=== PATIENT | female | born 1950 | race Caucasian/White ===

== ENCOUNTER 2018-04-12 15:32 | Inpatient (IN) | payer MEDICARE, OTHER ==
[2018-04-12 16:11] VITALS: BP 140/82
[2018-04-12] MEDS ORDERED: Albuterol Nebulizer 2.5mg/3mL HHN PRN (16:38)
[2018-04-12] MEDS ORDERED: Triamcinolone Acetonide 0.1% Cream 15 gm TP PRN (16:51)
[2018-04-12] MEDS ORDERED: Maalox 30 mL Cup PO PRN (16:51)
[2018-04-12] MEDS ORDERED: Magnesium Hydroxide (MOM) 30 mL UDC PO PRN (16:51)
[2018-04-12 17:34] LABS: % BASOPHILS 0.1 % (0.0-2.0); % EOSINOPHILS 2.7 % (0.0-5.0); % MONOCYTES 6.4 % (2.0-10.0); % NEUTROPHILS 66.8 % (40.0-80.0); EOSINOPHILE ABSOLUTE 0.2 Th/cmm (0.1-0.4); HEMATOCRIT 42.8 % (41.0-60); LYMPHOCYTE ABSOLUTE 1.5 Th/cmm (1.5-3.0); MEAN CELL VOLUME 95.2 fl (81-100); MEAN CORPUSCULAR HGB CONC 32.6 pg (28.0-36.0); MEAN PLATELET VOLUME 7.6 fl; MONOCYTE ABSOLUTE 0.4 Th/cmm (0.3-1.0); NEUTROPHILE ABSOLUTE 4.2 Th/cmm (1.8-8.0); PLATELET COUNT 288 Th/cmm (150-400); RED CELL DISTRIBUTION WIDTH 13.7 % (11.5-20.0); WHITE BLOOD COUNT 6.3 Th/cmm (4.8-10.8)
[2018-04-12 17:50] LABS: ALB/GLOB RATIO 1.2 (1.0-1.8); ALBUMIN 3.6 gm/dL (3.7-5.3); ALKALINE PHOSPHATASE 102 U/L (34-104); ANION GAP 11.4 (7.0-16.0); BILIRUBIN,TOTAL 0.7 mg/dL (0.3-1.0); BUN - UREA NITROGEN 20 mg/dL (7-25); CALCIUM SERUM 9.3 mg/dL (8.6-10.3); CHLORIDE 107 mEq/L (98-107); CHOLESTEROL 138 mg/dL (<200); CREATININE - SERUM 0.9 mg/dL (0.6-1.2); GFR AFRICAN-AMERICAN > 60.0 ml/min (>90); GFR NON AFRICAN-AMERICAN > 60.0 ml/min; GLUCOSE 95 mg/dL (70-105); HDL -HIGH DENSITY LIPOPROTEIN 35 mg/dL (23-92); POTASSIUM SERUM 4.4 mEq/L (3.5-5.1); SGOT 34 U/L (13-39); SGPT/ALT 15 U/L (7-52); SODIUM SERUM 140 mEq/L (136-145); TOTAL PROTEIN,SERUM 6.6 gm/dL (6.0-8.3); TRIGLYCERIDES 120 mg/dL (<150)
--- NOTE | 2018-04-13 08:49 | History and Physical ---
History of Present Illness - HPI Chief Complaint: Increased in agitation HPI: Patient was send to ER for evaluation for increased in agitation, after evaluation patient was send to [facility]Ps[facility] unit. Vital Signs: Last Vital Signs Temp 99 F 04/12/18 17:01 Pulse 70 04/12/18 18:39 Resp 18 04/12/18 18:39 BP 160/103 04/12/18 17:01 Pulse Ox 97 04/12/18 18:39 Past Medical History Cardiovascular: Report: AFIB, CAD, CHF, HTN Pulmonary: Report: No Pertinent Hx [employer]: Report: Dementia GI: Report: No Pertinent Hx Psych: Report: Schizophrenia Musculoskeletal: Report: Weakness Rheumatologic: Report: No pertinent Hx Infectious Disease: Report: No Pertinent Hx Renal/: Report: No Pertinent Hx Endocrine: Report: No Pertinent Hx Dermatology: Report: No Pertinent Hx - Past Surgical History Past Surgical History: No pertinent Hx Social History Smoke: No Alcohol: None Drugs: None Lives: Intermediate Domestic Violence: Negative - Allergies Allergies/Adverse Reactions: Allergies Allergy/AdvReac Type Severity Reaction Status Date / Time No Known Allergies Allergy Verified 04/12/18 16:09 Review of Systems - Review of Systems Constitutional: Report: No Significant Eyes: Report: No Significant ENT: Report: No Significant Respiratory: Report: No Significant Cardiovascular: Report: No Significant Gastrointestinal: Report: No Significant Genitourinary: Report: No Significant Musculoskeletal: Report: No Significant Skin: Report: No Significant Neurological: Report: Weakness Physical Exam - Physical Exam HEENT: Report: Ears Nose Throat within normal limits Neck: Report: Within normal limits Cardiovascular Systems: Report: Irregular rhythm was noted Respiratory: Report: Breath Sounds are within normal limits Abdomen: Report: Non-tender to palpation Back: Report: Inspection of back is within normal limits. Extremities: Report: Non-tender to palpation. Skin: Report: Color of skin is within normal limits, Warm, Dry Neuro/Psych: Report: Disoriented to name time or place - Lab Results All Lab Results last 24 hours: Laboratory Results - last 24 hr 04/12/18 04/12/18 04/12/18 17:26 17:26 17:37 WBC 6.3 RBC 4.50 Hgb 14.0 Hct 42.8 MCV 95.2 MCH 31.0 MCHC Differential 32.6 RDW 13.7 Plt Count 288 MPV 7.6 Neutrophils % 66.8 Lymphocytes % 24.0 Monocytes % 6.4 Eosinophils % 2.7 Basophils % 0.1 Sodium 140 Potassium 4.4 Chloride 107 Carbon Dioxide 26.0 Anion Gap 11.4 BUN 20 Creatinine 0.9 Est GFR ( Amer) > 60.0 Est GFR (Non-Af Amer) > 60.0 BUN/Creatinine Ratio 22.2 Glucose 95 POC Glucose 66 L Calcium 9.3 Total Bilirubin 0.7 AST 34 ALT 15 Alkaline Phosphatase 102 Total Protein 6.6 Albumin 3.6 L Globulin 3.0 Albumin/Globulin Ratio 1.2 Triglycerides 120 Cholesterol 138 LDL Cholesterol Direct 90 HDL Cholesterol 35 - Assessment Assessment: Patient is sleeping but arousable. Dx: Increased in agitation, Psychosis, A-fib , HTN, CAD, CHF. - Plan Plan: Patient follow by Psychiatry, willrequest labs, will continue to monitor.
[2018-04-13] MEDS: Multivitamin Tab PO SCH (10:27)
[2018-04-13 10:28] LABS: CHOLESTEROL 143 mg/dL (<200); HDL -HIGH DENSITY LIPOPROTEIN 40 mg/dL (23-92); TRIGLYCERIDES 83 mg/dL (<150)
[2018-04-13] MEDS: Aspirin 81mg Chewable Tab PO SCH (10:28)
[2018-04-13] MEDS: POLYETHYLENE GLYCOL 3350 17 GM PACK PO SCH (10:31)
--- NOTE | 2018-04-13 11:02 | Diagnostic Imaging Report ---
Portable chest x-ray HISTORY: Pain, fall There is a poor inspiration. This is accentuation of interstitial lung markings in the right base probably related to the poor inspiration. The heart size appears increased. Cardiac pacemaker lead wire projects over the right ventricle. IMPRESSION: 1. Allowing for poor inspiration, no acute focal pulmonary processes 2. Cardiomegaly with pacemaker placement
[2018-04-13 22:20] LABS: A1C % 5.3 % (4.0-6.0)
--- NOTE | 2018-04-14 04:10 | Psychiatric Evaluation ---
DATE OF SERVICE: 04/12/2018 IDENTIFYING DATA: The patient is a 67-year-old woman, resident of a residential facility. Information obtained by directly interviewing the patient as well as reviewing the admission papers and they are reliable. JUSTIFICATION OF HOSPITALIZATION: The patient is admitted here on a voluntary basis from [facility] in view of her depression and agitated behavior. CHIEF COMPLAINT: "I do not know." HISTORY OF PRESENT ILLNESS: This is the first psychiatric hospitalization to the [facility] for this patient who is reported to have been striking out and wandering and confused. The patient has not been able to continue to a lower level of care and the patient has to be transferred over here for stabilization. The patient has been referred over here by Dr. Walter who has been treating the patient on an outpatient basis. PAST PSYCHIATRIC HISTORY: Review of the chart indicated that the patient had been maintained on low dose of the antidepressant as well as antipsychotic medication. The patient has been on 100 mg of the Seroquel and 20 mg of the Paxil prior to being in here. The patient, however, has been getting easily upset when I am talking to her and is noted to be very confused, not be able to provide much of any information. PAST PSYCHIATRIC HISTORY: None. MEDICAL HISTORY: Physical examination is requested to be done by Dr. Nixon. SUBSTANCE ABUSE HISTORY: None. PHYSICAL OR SEXUAL ABUSE HISTORY: None. LEGAL PROBLEMS: None at this time. STRENGTH AND ASSETS: The patient seems to be motivated. MENTAL STATUS EXAMINATION: The patient is a 67-year-old, looking her stated age, superficially cooperative. Eye contact is poor. Mood is noted to be irritable. Affect is constricted. Insight and judgment at this time are noted to be still impaired. Impulse control is noted to be limited. Coping skills are noted to be limited. The patient has paranoid delusions, but denies any command hallucinations. The patient is very confused, paranoid, and is depressed. The patient is getting easily agitated. The saw the patient is alert and awake, but short and long-term memory are noted to be very much impaired. DIAGNOSTIC IMPRESSION: AXIS I: Major depressive disorder, recurrent with psychotic symptoms. AXIS IB: Dementia and behavioral change, secondary trait. AXIS II: None. AXIS III: As per Dr. Nixon. IMMEDIATE TREATMENT PLAN: The patient is going to be observed on inpatient unit, provided with supportive psychotherapy. The patient is going to be encouraged and verbalize the concerns. Once stabilized, the patient is going to be discharged to self to be followed up on an outpatient basis. JOB# [id number]
[2018-04-14 06:41] LABS: % BASOPHILS 0.2 % (0.0-2.0); % EOSINOPHILS 2.2 % (0.0-5.0); % LYMPHOCYTES 22.5 % (20.0-50.0); % MONOCYTES 7.6 % (2.0-10.0); % NEUTROPHILS 67.5 % (40.0-80.0); EOSINOPHILE ABSOLUTE 0.1 Th/cmm (0.1-0.4); HEMATOCRIT 42.4 % (41.0-60); HEMOGLOBIN 14.2 gm/dL (12-16); LYMPHOCYTE ABSOLUTE 1.3 Th/cmm (1.5-3.0); MEAN CELL VOLUME 94.7 fl (81-100); MEAN CORPUSCULAR HEMOGLOBIN 31.7 pg (27.0-31.0); MEAN CORPUSCULAR HGB CONC 33.5 pg (28.0-36.0); MEAN PLATELET VOLUME 7.8 fl; MONOCYTE ABSOLUTE 0.4 Th/cmm (0.3-1.0); NEUTROPHILE ABSOLUTE 3.9 Th/cmm (1.8-8.0); PLATELET COUNT 313 Th/cmm (150-400); RED BLOOD COUNT 4.47 Mil/cmm (3.80-5.20); RED CELL DISTRIBUTION WIDTH 13.5 % (11.5-20.0); WHITE BLOOD COUNT 5.7 Th/cmm (4.8-10.8)
[2018-04-14 06:53] LABS: ALB/GLOB RATIO 1.3 (1.0-1.8); ALKALINE PHOSPHATASE 104 U/L (34-104); ANION GAP 12.6 (7.0-16.0); BILIRUBIN,TOTAL 0.9 mg/dL (0.3-1.0); BUN - UREA NITROGEN 20 mg/dL (7-25); CALCIUM SERUM 9.8 mg/dL (8.6-10.3); CARBON DIOXIDE 25.8 mEq/L (21.0-31.0); CHLORIDE 104 mEq/L (98-107); CREATININE - SERUM 0.9 mg/dL (0.6-1.2); GFR AFRICAN-AMERICAN > 60.0 ml/min (>90); GFR NON AFRICAN-AMERICAN > 60.0 ml/min; GLUCOSE 95 mg/dL (70-105); POTASSIUM SERUM 4.4 mEq/L (3.5-5.1); SGOT 32 U/L (13-39); SGPT/ALT 18 U/L (7-52); SODIUM SERUM 138 mEq/L (136-145); TOTAL PROTEIN,SERUM 7.2 gm/dL (6.0-8.3)
[2018-04-14] MEDS: Ipratropium Neb 0.5 mg/2.5 mL UD HHN SCH ×6 (07:26→23:30)
--- NOTE | 2018-04-14 08:56 | General Progress Note ---
Subjective - Review of Systems Service Date: 04/14/18 Subjective: Patient is confused Objective - Results Result Diagrams: 04/14/18 06:21 04/14/18 06:21 Recent Labs: Laboratory Last Values WBC 5.7 Th/cmm (4.8-10.8) 04/14/18 06:21 RBC 4.47 Mil/cmm (3.80-5.20) 04/14/18 06:21 Hgb 14.2 gm/dL (12-16) 04/14/18 06:21 Hct 42.4 % (41.0-60) 04/14/18 06:21 MCV 94.7 fl (81-100) 04/14/18 06:21 MCH 31.7 pg (27.0-31.0) H 04/14/18 06:21 MCHC Differential 33.5 pg (28.0-36.0) 04/14/18 06:21 RDW 13.5 % (11.5-20.0) 04/14/18 06:21 Plt Count 313 Th/cmm (150-400) 04/14/18 06:21 MPV 7.8 fl 04/14/18 06:21 Neutrophils % 67.5 % (40.0-80.0) 04/14/18 06:21 Lymphocytes % 22.5 % (20.0-50.0) 04/14/18 06:21 Monocytes % 7.6 % (2.0-10.0) 04/14/18 06:21 Eosinophils % 2.2 % (0.0-5.0) 04/14/18 06:21 Basophils % 0.2 % (0.0-2.0) 04/14/18 06:21 Sodium 138 mEq/L (136-145) 04/14/18 06:21 Potassium 4.4 mEq/L (3.5-5.1) 04/14/18 06:21 Chloride 104 mEq/L (98-107) 04/14/18 06:21 Carbon Dioxide 25.8 mEq/L (21.0-31.0) 04/14/18 06:21 Anion Gap 12.6 (7.0-16.0) 04/14/18 06:21 BUN 20 mg/dL (7-25) 04/14/18 06:21 Creatinine 0.9 mg/dL (0.6-1.2) 04/14/18 06:21 Est GFR ( Amer) > 60.0 ml/min (>90) 04/14/18 06:21 Est GFR (Non-Af Amer) > 60.0 ml/min 04/14/18 06:21 BUN/Creatinine Ratio 22.2 04/14/18 06:21 Glucose 95 mg/dL (70-105) 04/14/18 06:21 POC Glucose 66 MG/DL (70 - 105) L 04/12/18 17:37 Hemoglobin A1c % 5.3 % (4.0-6.0) 04/12/18 17:26 Calcium 9.8 mg/dL (8.6-10.3) 04/14/18 06:21 Total Bilirubin 0.9 mg/dL (0.3-1.0) 04/14/18 06:21 AST 32 U/L (13-39) 04/14/18 06:21 ALT 18 U/L (7-52) 04/14/18 06:21 Alkaline Phosphatase 104 U/L (34-104) 04/14/18 06:21 Total Protein 7.2 gm/dL (6.0-8.3) 04/14/18 06:21 Albumin 4.0 gm/dL (3.7-5.3) 04/14/18 06:21 Globulin 3.2 gm/dL 04/14/18 06:21 Albumin/Globulin Ratio 1.3 (1.0-1.8) 04/14/18 06:21 Triglycerides 83 mg/dL (<150) 04/13/18 09:55 Cholesterol 143 mg/dL (<200) 04/13/18 09:55 LDL Cholesterol Direct 95 mg/dL (75-193) 04/13/18 09:55 HDL Cholesterol 40 mg/dL (23-92) 04/13/18 09:55 - Physical Exam Vitals and I&O: Vital Signs Temp 0 F 04/14/18 06:13 Pulse 61 04/14/18 07:26 Resp 18 04/14/18 07:26 BP 140/65 04/13/18 21:15 Pulse Ox 96 04/14/18 07:26 Intake & Output 04/13/18 04/14/18 04/14/18 18:59 06:59 18:59 Intake Total 1200 240 Balance 1200 240 Intake: Oral 1200 240 Other: # Voids 3 # Bowel Movements 0 Stool Characteristics Soft Active Medications: Current Medications Acetaminophen (Tylenol) 650 mg PO Q4HR PRN PRN Reason: Mild Pain / Temp above 100 Stop: 06/11/18 16:50 Al Hydrox/Mg Hydrox/Simethicone (Maalox) 30 ml PO Q4HR PRN PRN Reason: GI DISTRESS Stop: 06/11/18 16:50 Albuterol Sulfate (Albuterol 2.5mg/3ml Neb Ud) 2.5 mg HHN Q4H PRN PRN Reason: Shortness of Breath or Wheeze Stop: 06/11/18 16:37 Aspirin (Aspirin Chewable) 81 mg PO DAILY [facility] Stop: 06/12/18 08:59 Last Admin: 04/13/18 10:28 Dose: 81 mg Bisacodyl (Dulcolax 10 Mg Supp) 10 mg RC DAILY PRN PRN Reason: Constipation Stop: 06/11/18 16:35 Digoxin (Lanoxin) 0.125 mg PO DAILY [facility] Stop: 06/12/18 08:59 Last Admin: 04/13/18 10:30 Dose: 0.125 mg Docusate Sodium (Colace) 100 mg PO BID [facility] Stop: 06/11/18 16:59 Last Admin: 04/13/18 17:23 Dose: 100 mg Famotidine (Pepcid) 20 mg PO DAILY [facility] Stop: 06/12/18 08:59 Last Admin: 04/13/18 10:30 Dose: 20 mg Gabapentin (Neurontin) 300 mg PO Q8HR [facility] Stop: 06/11/18 20:59 Last Admin: 04/14/18 06:39 Dose: Not Given Ipratropium [place] (Atrovent Neb 0.5mg/2.5ml) 0.5 mg HHN Q4HRT [facility] Stop: 06/11/18 18:59 Last Admin: 04/14/18 07:26 Dose: 0.5 mg Lorazepam (Ativan) 1 mg PO Q8HR PRN; Protocol PRN Reason: Anxiety Stop: 06/11/18 16:26 Magnesium Hydroxide (Milk Of Magnesia) 30 ml PO HS PRN PRN Reason: Constipation Magnesium Oxide (Mag-Oxide) 400 mg PO BID [facility] Stop: 06/11/18 16:59 Last Admin: 04/13/18 17:23 Dose: 400 mg Metoprolol Tartrate (Lopressor) 25 mg PO Q12HR [facility] Stop: 06/11/18 20:59 Last Admin: 04/13/18 21:15 Dose: 25 mg Multivitamins/Vitamin C (Theragran) 1 tab PO DAILY [facility] Stop: 06/12/18 08:59 Last Admin: 04/13/18 10:27 Dose: 1 tab Paroxetine HCl (Paxil) 20 mg PO DAILY [facility]; Protocol Stop: 06/12/18 08:59 Polyethylene Glycol (Miralax) 17 gm PO DAILY [facility] Stop: 06/12/18 08:59 Last Admin: 04/13/18 10:31 Dose: 17 gm Pramipexole Dihydrochloride (Mirapex) 0.25 mg PO HS [facility]; Protocol Stop: 06/11/18 20:59 Last Admin: 04/13/18 21:15 Dose: 0.25 mg Quetiapine Fumarate (Seroquel) 100 mg PO HS [facility]; Protocol Stop: 06/12/18 20:59 Last Admin: 04/13/18 21:49 Dose: 100 mg Triamcinolone Acetonide (Kenalog 0.1%) 1 appl TP Q12HR PRN PRN Reason: Itching Stop: 06/11/18 20:59 Zolpidem Tartrate (Ambien) 5 mg PO HS PRN PRN Reason: Insomnia Stop: 06/11/18 16:50 Last Admin: 04/13/18 21:16 Dose: 5 mg General: Alert, Other (Confused) HEENT: Atraumatic Neck: Supple Cardiovascular: Regular rate Lungs: Clear to auscultation Abdomen: Bowel sounds, Soft Extremities: Other (No edema) Neurological: Other (Unstable gait) Skin: Other (Warm and dry) Psych/Mental Status: Other (Confused, not oriented) Assessment/Plan - Assessment Assessment: Patient is sleeping but arousable. Dx: Increased in agitation, Psychosis, A-fib , HTN, CAD, CHF. - Plan Plan: Patient follow by Psychiatry, will request labs, will continue to monitor.
[2018-04-14] MEDS: Aspirin 81mg Chewable Tab PO SCH (10:00)
[2018-04-14] MEDS: Multivitamin Tab PO SCH (10:00)
[2018-04-14] MEDS: POLYETHYLENE GLYCOL 3350 17 GM PACK PO SCH (10:00)
--- NOTE | 2018-04-14 23:47 | Progress Notes ---
DATE: 04/14/2018 PSYCHIATRIC PROGRESS NOTE SUBJECTIVE: Staff was spoken to. The patient is interviewed. Mood is noted to be irritable. Affect is constricted. Coping skills are noted to be still poor. Insight and judgment are noted to be still poor. The patient has been having difficult time to cope with the stress. The patient is isolative and withdrawn. ASSESSMENT: The patient is still impulsive. PLAN: To continue the patient with the supportive therapy. Continue the patient with the Paxil. I encouraged the patient to verbalize the concerns rather than to act out. The patient is not ready to be discharged to a lower level of care yet. [facility]# [id number]
[2018-04-15] MEDS: Ipratropium Neb 0.5 mg/2.5 mL UD HHN SCH ×6 (03:19→22:42)
--- NOTE | 2018-04-15 09:17 | General Progress Note ---
Subjective - Review of Systems Service Date: 04/15/18 Subjective: Patient is confused Objective - Results Result Diagrams: 04/14/18 06:21 04/14/18 06:21 Recent Labs: Laboratory Last Values WBC 5.7 Th/cmm (4.8-10.8) 04/14/18 06:21 RBC 4.47 Mil/cmm (3.80-5.20) 04/14/18 06:21 Hgb 14.2 gm/dL (12-16) 04/14/18 06:21 Hct 42.4 % (41.0-60) 04/14/18 06:21 MCV 94.7 fl (81-100) 04/14/18 06:21 MCH 31.7 pg (27.0-31.0) H 04/14/18 06:21 MCHC Differential 33.5 pg (28.0-36.0) 04/14/18 06:21 RDW 13.5 % (11.5-20.0) 04/14/18 06:21 Plt Count 313 Th/cmm (150-400) 04/14/18 06:21 MPV 7.8 fl 04/14/18 06:21 Neutrophils % 67.5 % (40.0-80.0) 04/14/18 06:21 Lymphocytes % 22.5 % (20.0-50.0) 04/14/18 06:21 Monocytes % 7.6 % (2.0-10.0) 04/14/18 06:21 Eosinophils % 2.2 % (0.0-5.0) 04/14/18 06:21 Basophils % 0.2 % (0.0-2.0) 04/14/18 06:21 Sodium 138 mEq/L (136-145) 04/14/18 06:21 Potassium 4.4 mEq/L (3.5-5.1) 04/14/18 06:21 Chloride 104 mEq/L (98-107) 04/14/18 06:21 Carbon Dioxide 25.8 mEq/L (21.0-31.0) 04/14/18 06:21 Anion Gap 12.6 (7.0-16.0) 04/14/18 06:21 BUN 20 mg/dL (7-25) 04/14/18 06:21 Creatinine 0.9 mg/dL (0.6-1.2) 04/14/18 06:21 Est GFR ( Amer) > 60.0 ml/min (>90) 04/14/18 06:21 Est GFR (Non-Af Amer) > 60.0 ml/min 04/14/18 06:21 BUN/Creatinine Ratio 22.2 04/14/18 06:21 Glucose 95 mg/dL (70-105) 04/14/18 06:21 POC Glucose 66 MG/DL (70 - 105) L 04/12/18 17:37 Hemoglobin A1c % 5.3 % (4.0-6.0) 04/12/18 17:26 Calcium 9.8 mg/dL (8.6-10.3) 04/14/18 06:21 Total Bilirubin 0.9 mg/dL (0.3-1.0) 04/14/18 06:21 AST 32 U/L (13-39) 04/14/18 06:21 ALT 18 U/L (7-52) 04/14/18 06:21 Alkaline Phosphatase 104 U/L (34-104) 04/14/18 06:21 Total Protein 7.2 gm/dL (6.0-8.3) 04/14/18 06:21 Albumin 4.0 gm/dL (3.7-5.3) 04/14/18 06:21 Globulin 3.2 gm/dL 04/14/18 06:21 Albumin/Globulin Ratio 1.3 (1.0-1.8) 04/14/18 06:21 Triglycerides 83 mg/dL (<150) 04/13/18 09:55 Cholesterol 143 mg/dL (<200) 04/13/18 09:55 LDL Cholesterol Direct 95 mg/dL (75-193) 04/13/18 09:55 HDL Cholesterol 40 mg/dL (23-92) 04/13/18 09:55 - Physical Exam Vitals and I&O: Vital Signs Temp 98.2 F 04/14/18 20:00 Pulse 74 04/15/18 07:17 Resp 14 04/15/18 07:17 BP 165/77 04/14/18 21:13 Pulse Ox 94 04/15/18 07:17 Intake & Output 04/14/18 04/15/18 04/15/18 18:59 06:59 18:59 Intake Total 560 Balance 560 Intake: Oral 560 Other: # Voids 3 # Bowel Movements 1 Stool Characteristics Soft Soft Active Medications: Current Medications Acetaminophen (Tylenol) 650 mg PO Q4HR PRN PRN Reason: Mild Pain / Temp above 100 Stop: 06/11/18 16:50 Al Hydrox/Mg Hydrox/Simethicone (Maalox) 30 ml PO Q4HR PRN PRN Reason: GI DISTRESS Stop: 06/11/18 16:50 Albuterol Sulfate (Albuterol 2.5mg/3ml Neb Ud) 2.5 mg HHN Q4H PRN PRN Reason: Shortness of Breath or Wheeze Stop: 06/11/18 16:37 Aspirin (Aspirin Chewable) 81 mg PO DAILY [facility] Stop: 06/12/18 08:59 Last Admin: 04/14/18 10:00 Dose: 81 mg Bisacodyl (Dulcolax 10 Mg Supp) 10 mg RC DAILY PRN PRN Reason: Constipation Stop: 06/11/18 16:35 Digoxin (Lanoxin) 0.125 mg PO DAILY [facility] Stop: 06/12/18 08:59 Last Admin: 04/14/18 10:43 Dose: 0.125 mg Docusate Sodium (Colace) 100 mg PO BID [facility] Stop: 06/11/18 16:59 Last Admin: 04/14/18 17:24 Dose: Not Given Famotidine (Pepcid) 20 mg PO DAILY [facility] Stop: 06/12/18 08:59 Last Admin: 04/14/18 10:00 Dose: 20 mg Gabapentin (Neurontin) 300 mg PO Q8HR [facility] Stop: 06/11/18 20:59 Last Admin: 04/15/18 05:50 Dose: Not Given Ipratropium [place] (Atrovent Neb 0.5mg/2.5ml) 0.5 mg HHN Q4HRT [facility] Stop: 06/11/18 18:59 Last Admin: 04/15/18 06:55 Dose: 0.5 mg Lorazepam (Ativan) 1 mg PO Q8HR PRN; Protocol PRN Reason: Anxiety Stop: 06/11/18 16:26 Magnesium Hydroxide (Milk Of Magnesia) 30 ml PO HS PRN PRN Reason: Constipation Magnesium Oxide (Mag-Oxide) 400 mg PO BID [facility] Stop: 06/11/18 16:59 Last Admin: 04/14/18 17:24 Dose: Not Given Metoprolol Tartrate (Lopressor) 25 mg PO Q12HR [facility] Stop: 06/11/18 20:59 Last Admin: 04/14/18 21:13 Dose: 25 mg Multivitamins/Vitamin C (Theragran) 1 tab PO DAILY [facility] Stop: 06/12/18 08:59 Last Admin: 04/14/18 10:00 Dose: 1 tab Paroxetine HCl (Paxil) 20 mg PO DAILY [facility]; Protocol Stop: 06/12/18 08:59 Last Admin: 04/14/18 10:00 Dose: 20 mg Polyethylene Glycol (Miralax) 17 gm PO DAILY [facility] Stop: 06/12/18 08:59 Last Admin: 04/14/18 10:00 Dose: 17 gm Pramipexole Dihydrochloride (Mirapex) 0.25 mg PO HS [facility]; Protocol Stop: 06/11/18 20:59 Last Admin: 04/14/18 20:52 Dose: 0.25 mg Quetiapine Fumarate (Seroquel) 100 mg PO HS [facility]; Protocol Stop: 06/12/18 20:59 Last Admin: 04/14/18 20:52 Dose: 100 mg Triamcinolone Acetonide (Kenalog 0.1%) 1 appl TP Q12HR PRN PRN Reason: Itching Stop: 06/11/18 20:59 Zolpidem Tartrate (Ambien) 5 mg PO HS PRN PRN Reason: Insomnia Stop: 06/11/18 16:50 Last Admin: 04/14/18 20:51 Dose: 5 mg General: Alert, Other (Confused) HEENT: Atraumatic Neck: Supple Cardiovascular: Regular rate Lungs: Clear to auscultation Abdomen: Bowel sounds, Soft Extremities: Other (No edema) Neurological: Other (Unstable gait) Skin: Other (Warm and dry) Psych/Mental Status: Other (Confused, not oriented) Assessment/Plan - Assessment Assessment: Patient is sleeping but arousable. Dx: Increased in agitation, Psychosis, A-fib , HTN, CAD, CHF. - Plan Plan: Patient follow by Psychiatry, will request labs, will continue to monitor.
[2018-04-15] MEDS: Aspirin 81mg Chewable Tab PO SCH (09:53)
[2018-04-15] MEDS: POLYETHYLENE GLYCOL 3350 17 GM PACK PO SCH (09:54)
[2018-04-15] MEDS: Multivitamin Tab PO SCH (09:54)
--- NOTE | 2018-04-15 10:41 | Progress Notes ---
DATE: 04/15/2018 SUBJECTIVE: Staff was spoken to. The patient is interviewed. Mood is noted to be irritable. Affect is constricted. Coping skills are noted to be still poor. The patient has been going out of control and has been banging on the ____ yesterday. The patient has to be redirected. ASSESSMENT: The patient is still impulsive. PLAN: To continue the patient with the supportive therapy. Continue the patient with the Seroquel that she is getting at 100 mg at bedtime and if the patient continues to be aggressive like this one, a low dose of the Depakote, that is 125 mg, is going to be added to the patient to ____ the irritability and aggressive behavior. [facility]# [id number]
--- NOTE | 2018-04-15 20:33 | Consultation ---
DATE OF CONSULTATION: 04/14/2018 REFERRING PHYSICIAN: Darrell Chan MD TYPE OF CONSULTATION: Psychology. HISTORY OF PRESENT ILLNESS: The patient is a 67-year-old female. The patient is a resident of [facility]. The following is by record review and by patient's self-report. The patient is being admitted due to increased depression and agitated behavior. Staff at the patient's facility report that she has been striking out and becoming more confused and difficult to redirect. Upon interview, the patient does not know why she is being hospitalized. The patient denied any suicidal ideation, plan or intention. PAST MEDICAL HISTORY: Please see history and physical by Dr. Nixon. PAST PSYCHIATRIC HISTORY: The patient is seen by a psychiatrist, Dr. Oneil at her facility. The patient has a history of depression as well as psychosis. SUBSTANCE ABUSE HISTORY: The patient denies any history. PSYCHOSOCIAL HISTORY: The patient is a resident of [facility]. The patient is and has one son who is involved in the patient's care. The patient did not answer questions about occupational or educational history or buddhist affiliation. The patient denied any history of physical or sexual abuse. The patient denies any current legal problems. MENTAL STATUS EXAMINATION: The patient appears to be her stated age. The patient's attitude is superficially cooperative. Eye contact is poor. Speech is spontaneous. Mood is irritable. Affect is constricted. The patient's thought process shows to be confused. There is some evidence of possible paranoid ideation. The patient denied any auditory or visual hallucinations. The patient denies any suicidal ideation, plan or intention. The patient is reporting that she is depressed. Impulse control is poor. Concentration is poor. Sensorium is alert and oriented to self and place. The patient did not participate in the memory assessment. The patient had difficulty recalling the name of her senior living facility. Short term memory seems to be impaired. Long-term memory needs further evaluation. The patient did not participate in the interpretation of proverbs. Insight is poor. Judgment is poor. DIAGNOSTIC IMPRESSION: AXIS I: 1. Major depressive disorder, recurrent with psychotic symptoms. 2. Dementia with behavioral disturbance. AXIS II: Deferred. AXIS III: Per Dr. Nixon. TREATMENT PLAN: The patient has been seen by Dr. Flynn for psychiatric evaluation and for the management of the patient's psychotropic medications. We will provide supportive psychotherapy to include reality orientation, differentiation and integration. We will provide a cognitive behavioral therapy to reduce the patient's depression. We will provide motivational enhancement for the patient to become compliant and stay compliant with all aspects of her care and treatment. We will encourage the patient to be able to demonstrate emotional and self regulation and to verbalize her concerns versus striking out behaviors. We will provide coping strategies for phase of life issues as well as adjustment to her long-term care environment. Thank you, Dr. Flynn for this consult and the opportunity to participate in this patient's care. JOB# [id number] [facility]
[2018-04-16] MEDS: Ipratropium Neb 0.5 mg/2.5 mL UD HHN SCH ×2 (02:59→06:38)
--- NOTE | 2018-04-16 08:46 | General Progress Note ---
Subjective - Review of Systems Service Date: 04/16/18 Subjective: Patient is confused Objective - Results Result Diagrams: 04/14/18 06:21 04/14/18 06:21 Recent Labs: Laboratory Last Values WBC 5.7 Th/cmm (4.8-10.8) 04/14/18 06:21 RBC 4.47 Mil/cmm (3.80-5.20) 04/14/18 06:21 Hgb 14.2 gm/dL (12-16) 04/14/18 06:21 Hct 42.4 % (41.0-60) 04/14/18 06:21 MCV 94.7 fl (81-100) 04/14/18 06:21 MCH 31.7 pg (27.0-31.0) H 04/14/18 06:21 MCHC Differential 33.5 pg (28.0-36.0) 04/14/18 06:21 RDW 13.5 % (11.5-20.0) 04/14/18 06:21 Plt Count 313 Th/cmm (150-400) 04/14/18 06:21 MPV 7.8 fl 04/14/18 06:21 Neutrophils % 67.5 % (40.0-80.0) 04/14/18 06:21 Lymphocytes % 22.5 % (20.0-50.0) 04/14/18 06:21 Monocytes % 7.6 % (2.0-10.0) 04/14/18 06:21 Eosinophils % 2.2 % (0.0-5.0) 04/14/18 06:21 Basophils % 0.2 % (0.0-2.0) 04/14/18 06:21 Sodium 138 mEq/L (136-145) 04/14/18 06:21 Potassium 4.4 mEq/L (3.5-5.1) 04/14/18 06:21 Chloride 104 mEq/L (98-107) 04/14/18 06:21 Carbon Dioxide 25.8 mEq/L (21.0-31.0) 04/14/18 06:21 Anion Gap 12.6 (7.0-16.0) 04/14/18 06:21 BUN 20 mg/dL (7-25) 04/14/18 06:21 Creatinine 0.9 mg/dL (0.6-1.2) 04/14/18 06:21 Est GFR ( Amer) > 60.0 ml/min (>90) 04/14/18 06:21 Est GFR (Non-Af Amer) > 60.0 ml/min 04/14/18 06:21 BUN/Creatinine Ratio 22.2 04/14/18 06:21 Glucose 95 mg/dL (70-105) 04/14/18 06:21 POC Glucose 66 MG/DL (70 - 105) L 04/12/18 17:37 Hemoglobin A1c % 5.3 % (4.0-6.0) 04/12/18 17:26 Calcium 9.8 mg/dL (8.6-10.3) 04/14/18 06:21 Total Bilirubin 0.9 mg/dL (0.3-1.0) 04/14/18 06:21 AST 32 U/L (13-39) 04/14/18 06:21 ALT 18 U/L (7-52) 04/14/18 06:21 Alkaline Phosphatase 104 U/L (34-104) 04/14/18 06:21 Total Protein 7.2 gm/dL (6.0-8.3) 04/14/18 06:21 Albumin 4.0 gm/dL (3.7-5.3) 04/14/18 06:21 Globulin 3.2 gm/dL 04/14/18 06:21 Albumin/Globulin Ratio 1.3 (1.0-1.8) 04/14/18 06:21 Triglycerides 83 mg/dL (<150) 04/13/18 09:55 Cholesterol 143 mg/dL (<200) 04/13/18 09:55 LDL Cholesterol Direct 95 mg/dL (75-193) 04/13/18 09:55 HDL Cholesterol 40 mg/dL (23-92) 04/13/18 09:55 - Physical Exam Vitals and I&O: Vital Signs Temp 97.2 F 04/16/18 06:33 Pulse 65 04/16/18 06:45 Resp 16 04/16/18 06:45 BP 123/73 04/16/18 06:33 Pulse Ox 92 04/16/18 06:45 Intake & Output 04/15/18 04/16/18 04/16/18 18:59 06:59 18:59 Intake Total 1400 120 Balance 1400 120 Intake: Oral 1400 120 Other: # Voids 3 3 # Bowel Movements 1 Stool Characteristics Soft Soft Active Medications: Current Medications Acetaminophen (Tylenol) 650 mg PO Q4HR PRN PRN Reason: Mild Pain / Temp above 100 Stop: 06/11/18 16:50 Al Hydrox/Mg Hydrox/Simethicone (Maalox) 30 ml PO Q4HR PRN PRN Reason: GI DISTRESS Stop: 06/11/18 16:50 Albuterol Sulfate (Albuterol 2.5mg/3ml Neb Ud) 2.5 mg HHN Q4H PRN PRN Reason: Shortness of Breath or Wheeze Stop: 06/11/18 16:37 Aspirin (Aspirin Chewable) 81 mg PO DAILY [facility] Stop: 06/12/18 08:59 Last Admin: 04/15/18 09:53 Dose: Not Given Bisacodyl (Dulcolax 10 Mg Supp) 10 mg RC DAILY PRN PRN Reason: Constipation Stop: 06/11/18 16:35 Digoxin (Lanoxin) 0.125 mg PO DAILY [facility] Stop: 06/12/18 08:59 Last Admin: 04/15/18 09:53 Dose: Not Given Divalproex Sodium (Depakote Dr) 125 mg PO Q12HR [facility]; Protocol Stop: 06/14/18 20:59 Docusate Sodium (Colace) 100 mg PO BID [facility] Stop: 06/11/18 16:59 Last Admin: 04/15/18 17:01 Dose: Not Given Famotidine (Pepcid) 20 mg PO DAILY [facility] Stop: 06/12/18 08:59 Last Admin: 04/15/18 09:53 Dose: Not Given Gabapentin (Neurontin) 300 mg PO Q8HR [facility] Stop: 06/11/18 20:59 Last Admin: 04/16/18 05:48 Dose: 300 mg Ipratropium [place] (Atrovent Neb 0.5mg/2.5ml) 0.5 mg HHN Q4HRT [facility] Stop: 06/11/18 18:59 Last Admin: 04/16/18 06:38 Dose: 0.5 mg Lorazepam (Ativan) 1 mg PO Q8HR PRN; Protocol PRN Reason: Anxiety Stop: 06/11/18 16:26 Last Admin: 04/15/18 17:59 Dose: 1 mg Magnesium Hydroxide (Milk Of Magnesia) 30 ml PO HS PRN PRN Reason: Constipation Magnesium Oxide (Mag-Oxide) 400 mg PO BID [facility] Stop: 06/11/18 16:59 Last Admin: 04/15/18 17:01 Dose: Not Given Metoprolol Tartrate (Lopressor) 25 mg PO Q12HR [facility] Stop: 06/11/18 20:59 Last Admin: 04/15/18 21:03 Dose: 25 mg Multivitamins/Vitamin C (Theragran) 1 tab PO DAILY [facility] Stop: 06/12/18 08:59 Last Admin: 04/15/18 09:54 Dose: Not Given Paroxetine HCl (Paxil) 20 mg PO DAILY [facility]; Protocol Stop: 06/12/18 08:59 Last Admin: 04/15/18 09:53 Dose: Not Given Polyethylene Glycol (Miralax) 17 gm PO DAILY [facility] Stop: 06/12/18 08:59 Last Admin: 04/15/18 09:54 Dose: Not Given Pramipexole Dihydrochloride (Mirapex) 0.25 mg PO HS [facility]; Protocol Stop: 06/11/18 20:59 Last Admin: 04/15/18 21:03 Dose: 0.25 mg Quetiapine Fumarate (Seroquel) 100 mg PO HS [facility]; Protocol Stop: 06/12/18 20:59 Last Admin: 04/15/18 21:03 Dose: 100 mg Triamcinolone Acetonide (Kenalog 0.1%) 1 appl TP Q12HR PRN PRN Reason: Itching Stop: 06/11/18 20:59 Zolpidem Tartrate (Ambien) 5 mg PO HS PRN PRN Reason: Insomnia Stop: 06/11/18 16:50 Last Admin: 04/15/18 21:05 Dose: 5 mg General: Alert, Other (Confused) HEENT: Atraumatic Neck: Supple Cardiovascular: Regular rate Lungs: Clear to auscultation Abdomen: Bowel sounds, Soft Extremities: Other (No edema) Neurological: Other (Unstable gait) Skin: Other (Warm and dry) Psych/Mental Status: Other (Confused, not oriented) Assessment/Plan - Assessment Assessment: Patient is sleeping but arousable. Dx: Increased in agitation, Psychosis, A-fib , HTN, CAD, CHF. - Plan Plan: Patient follow by Psychiatry, will request labs, will continue to monitor.
[2018-04-16] MEDS: POLYETHYLENE GLYCOL 3350 17 GM PACK PO SCH (09:55)
[2018-04-16] MEDS: Aspirin 81mg Chewable Tab PO SCH (09:56)
[2018-04-16] MEDS: Multivitamin Tab PO SCH (09:56)
[2018-04-16] MEDS ORDERED: Ipratropium Neb 0.5 mg/2.5 mL UD HHN SCH (19:00)
--- NOTE | 2018-04-17 00:21 | Progress Notes ---
DATE: 04/16/2018 PSYCHIATRIC PROGRESS NOTE SUBJECTIVE: Staff was spoken to. The patient is interviewed. Mood is noted to be irritable. Affect is constricted. The patient is screaming and yelling at the top of her lungs. Coping skills are noted to be very poor. The patient needs to be redirected. The patient is still very demented and the patient is getting easily upset and the staff are trying to change her diapers. ASSESSMENT: The patient is still impulsive and paranoid. PLAN: To continue the patient with the current medications and followup. JOB# [id number]
--- NOTE | 2018-04-17 08:55 | General Progress Note ---
Subjective - Review of Systems Service Date: 04/17/18 Subjective: Patient is confused. Objective - Results Result Diagrams: 04/14/18 06:21 04/14/18 06:21 Recent Labs: Laboratory Last Values WBC 5.7 Th/cmm (4.8-10.8) 04/14/18 06:21 RBC 4.47 Mil/cmm (3.80-5.20) 04/14/18 06:21 Hgb 14.2 gm/dL (12-16) 04/14/18 06:21 Hct 42.4 % (41.0-60) 04/14/18 06:21 MCV 94.7 fl (81-100) 04/14/18 06:21 MCH 31.7 pg (27.0-31.0) H 04/14/18 06:21 MCHC Differential 33.5 pg (28.0-36.0) 04/14/18 06:21 RDW 13.5 % (11.5-20.0) 04/14/18 06:21 Plt Count 313 Th/cmm (150-400) 04/14/18 06:21 MPV 7.8 fl 04/14/18 06:21 Neutrophils % 67.5 % (40.0-80.0) 04/14/18 06:21 Lymphocytes % 22.5 % (20.0-50.0) 04/14/18 06:21 Monocytes % 7.6 % (2.0-10.0) 04/14/18 06:21 Eosinophils % 2.2 % (0.0-5.0) 04/14/18 06:21 Basophils % 0.2 % (0.0-2.0) 04/14/18 06:21 Sodium 138 mEq/L (136-145) 04/14/18 06:21 Potassium 4.4 mEq/L (3.5-5.1) 04/14/18 06:21 Chloride 104 mEq/L (98-107) 04/14/18 06:21 Carbon Dioxide 25.8 mEq/L (21.0-31.0) 04/14/18 06:21 Anion Gap 12.6 (7.0-16.0) 04/14/18 06:21 BUN 20 mg/dL (7-25) 04/14/18 06:21 Creatinine 0.9 mg/dL (0.6-1.2) 04/14/18 06:21 Est GFR ( Amer) > 60.0 ml/min (>90) 04/14/18 06:21 Est GFR (Non-Af Amer) > 60.0 ml/min 04/14/18 06:21 BUN/Creatinine Ratio 22.2 04/14/18 06:21 Glucose 95 mg/dL (70-105) 04/14/18 06:21 POC Glucose 66 MG/DL (70 - 105) L 04/12/18 17:37 Hemoglobin A1c % 5.3 % (4.0-6.0) 04/12/18 17:26 Calcium 9.8 mg/dL (8.6-10.3) 04/14/18 06:21 Total Bilirubin 0.9 mg/dL (0.3-1.0) 04/14/18 06:21 AST 32 U/L (13-39) 04/14/18 06:21 ALT 18 U/L (7-52) 04/14/18 06:21 Alkaline Phosphatase 104 U/L (34-104) 04/14/18 06:21 Total Protein 7.2 gm/dL (6.0-8.3) 04/14/18 06:21 Albumin 4.0 gm/dL (3.7-5.3) 04/14/18 06:21 Globulin 3.2 gm/dL 04/14/18 06:21 Albumin/Globulin Ratio 1.3 (1.0-1.8) 04/14/18 06:21 Triglycerides 83 mg/dL (<150) 04/13/18 09:55 Cholesterol 143 mg/dL (<200) 04/13/18 09:55 LDL Cholesterol Direct 95 mg/dL (75-193) 04/13/18 09:55 HDL Cholesterol 40 mg/dL (23-92) 04/13/18 09:55 - Physical Exam Vitals and I&O: Vital Signs Temp 0 F 04/17/18 06:18 Pulse 72 04/16/18 20:31 Resp 18 04/16/18 20:21 BP 110/67 04/16/18 20:31 Pulse Ox 95 04/16/18 20:21 Intake & Output 08/27/18 08/28/18 08/28/18 18:59 06:59 18:59 Intake Total 800 120 Balance 800 120 Intake: Oral 800 120 Other: # Voids 3 3 # Bowel Movements 0 1 Stool Characteristics Soft Soft Active Medications: Current Medications Acetaminophen (Tylenol) 650 mg PO Q4HR PRN PRN Reason: Mild Pain / Temp above 100 Stop: 06/11/18 16:50 Al Hydrox/Mg Hydrox/Simethicone (Maalox) 30 ml PO Q4HR PRN PRN Reason: GI DISTRESS Stop: 06/11/18 16:50 Albuterol Sulfate (Albuterol 2.5mg/3ml Neb Ud) 2.5 mg HHN Q4H PRN PRN Reason: Shortness of Breath or Wheeze Stop: 06/11/18 16:37 Aspirin (Aspirin Chewable) 81 mg PO DAILY [facility] Stop: 06/12/18 08:59 Last Admin: 04/16/18 09:56 Dose: 81 mg Bisacodyl (Dulcolax 10 Mg Supp) 10 mg RC DAILY PRN PRN Reason: Constipation Stop: 06/11/18 16:35 Digoxin (Lanoxin) 0.125 mg PO DAILY [facility] Stop: 06/12/18 08:59 Last Admin: 04/16/18 09:55 Dose: 0.125 mg Divalproex Sodium (Depakote Dr) 125 mg PO Q12HR [facility]; Protocol Stop: 06/14/18 20:59 Last Admin: 04/16/18 20:30 Dose: 125 mg Docusate Sodium (Colace) 100 mg PO BID [facility] Stop: 06/11/18 16:59 Last Admin: 04/16/18 17:43 Dose: 100 mg Famotidine (Pepcid) 20 mg PO DAILY [facility] Stop: 06/12/18 08:59 Last Admin: 04/16/18 09:56 Dose: 20 mg Gabapentin (Neurontin) 300 mg PO Q8HR [facility] Stop: 06/11/18 20:59 Last Admin: 04/17/18 05:41 Dose: 300 mg Lorazepam (Ativan) 1 mg PO Q8HR PRN; Protocol PRN Reason: Anxiety Stop: 06/11/18 16:26 Last Admin: 04/16/18 20:31 Dose: 1 mg Magnesium Hydroxide (Milk Of Magnesia) 30 ml PO HS PRN PRN Reason: Constipation Magnesium Oxide (Mag-Oxide) 400 mg PO BID [facility] Stop: 06/11/18 16:59 Last Admin: 04/16/18 17:43 Dose: 400 mg Metoprolol Tartrate (Lopressor) 25 mg PO Q12HR [facility] Stop: 06/11/18 20:59 Last Admin: 04/16/18 20:31 Dose: 25 mg Multivitamins/Vitamin C (Theragran) 1 tab PO DAILY [facility] Stop: 06/12/18 08:59 Last Admin: 04/16/18 09:56 Dose: 1 tab Paroxetine HCl (Paxil) 20 mg PO DAILY [facility]; Protocol Stop: 06/12/18 08:59 Last Admin: 04/16/18 09:56 Dose: 20 mg Polyethylene Glycol (Miralax) 17 gm PO DAILY [facility] Stop: 06/12/18 08:59 Last Admin: 04/16/18 09:55 Dose: 17 gm Pramipexole Dihydrochloride (Mirapex) 0.25 mg PO HS [facility]; Protocol Stop: 06/11/18 20:59 Last Admin: 04/16/18 20:31 Dose: 0.25 mg Quetiapine Fumarate (Seroquel) 100 mg PO HS [facility]; Protocol Stop: 06/12/18 20:59 Last Admin: 04/16/18 20:30 Dose: 100 mg Triamcinolone Acetonide (Kenalog 0.1%) 1 appl TP Q12HR PRN PRN Reason: Itching Stop: 06/11/18 20:59 Zolpidem Tartrate (Ambien) 5 mg PO HS PRN PRN Reason: Insomnia Stop: 06/11/18 16:50 Last Admin: 04/16/18 20:31 Dose: 5 mg General: Alert, Other (Confused) HEENT: Atraumatic Neck: Supple Cardiovascular: Regular rate Lungs: Clear to auscultation Abdomen: Bowel sounds, Soft Extremities: Other (No edema) Neurological: Other (Unstable gait) Skin: Other (Warm and dry) Psych/Mental Status: Other (Confused, not oriented) Assessment/Plan - Assessment Assessment: Patient is sleeping but arousable. Dx: Increased in agitation, Psychosis, A-fib , HTN, CAD, CHF. - Plan Plan: Patient follow by Psychiatry, will request labs, will continue to monitor. Nutritional Asmnt/Malnutr-PDOC - Dietary Evaluation Malnutrition Findings (Please click <Entered> for more info): Nutritional Asmnt/Malnutrition Start: 04/16/18 14: 22 Text: Status: Complete Freq: Protocol: Document 04/16/18 14:22 GABRIELLELISA (Rec: 04/16/18 14:31 [email or web address]) Nutritional Asmnt/Malnutrition Patient General Information Nutritional Screening Moderate Risk Diagnosis psychosis Pertinent Medical Hx/Surgical Hx a fib, CAD, CHF, HTN, dementia , schizophrenia, weakness Subjective Information Pt seen eating in dining room. Per EMR, PO intake 50-75% over the past two days, meeting 100% of nutritional needs. Current Diet Order/ Nutrition Support [facility] soft ground, honey thick liquid Pertinent Medications colace, pepcid, mag-oxide, theragran, miralax, seroquel Pertinent Labs 04/14 nutrition related labs WNL Nutritional Hx/Data Height 1.6 m Height (Calculated Centimeters) 160.0 Current Weight (lbs) 43.091 kg Weight (Calculated Kilograms) 43.1 Weight (Calculated Grams) 53410.3 [place] Body Weight 115 Body Mass Index (BMI) 16.8 Weight Status Underweight GI Symptoms GI Symptoms None Last BM 04/15 Difficult in: None Skin Integrity/Comment: skin intact, bruise Current %PO Fair (50-74%) Estimated Nutritional Goals BEE in Kcals: Using Current wt Calories/Kcals/Kg 30-35 Kcals Calculated 4094-1013 Protein: Using Current wt Protein g/k.2-1.4 Protein Calculated 52-60 Fluid: ml 1290-1505ml (1ml/kcal) Nutritional Problem No current Nutrition Prob Problem N/A Intervention/Recommendation Comments 1. Continue with [facility] soft ground diet as ordered. 2. Monitor PO intake, wt, labs and skin integrity 3. F/U as low risk in 7 days, 04/23 Expected Outcomes/Goals Expected Outcomes/Goals 1. PO intake to meet at least 75% of nutritional needs. 2. Wt stability, skin to remain intact, labs to approach WNL.
[2018-04-17] MEDS: POLYETHYLENE GLYCOL 3350 17 GM PACK PO SCH (09:37)
[2018-04-17] MEDS: Multivitamin Tab PO SCH (10:18)
[2018-04-17] MEDS: Aspirin 81mg Chewable Tab PO SCH (10:18)
--- NOTE | 2018-04-17 23:18 | Progress Notes ---
DATE: 04/17/2018 SUBJECTIVE: Staff was spoken to. The patient is interviewed. Chart is reviewed. The patient continues to be irritable and dysphoric. Coping skills are noted to be very poor. Insight and judgment also noted to be limited. No side effects to the medications are noted. ASSESSMENT: The patient is still psychotic and demented. PLAN: Continue the patient with the supportive therapy. I encouraged the patient to verbalize the concerns rather than to act out. JOB# [id number]
[2018-04-18] MEDS: POLYETHYLENE GLYCOL 3350 17 GM PACK PO SCH (08:40)
[2018-04-18] MEDS: Aspirin 81mg Chewable Tab PO SCH (08:40)
[2018-04-18] MEDS: Multivitamin Tab PO SCH (08:40)
--- NOTE | 2018-04-18 09:03 | General Progress Note ---
Subjective - Review of Systems Service Date: 04/18/18 Subjective: Patient is confused. Objective - Results Result Diagrams: 04/14/18 06:21 04/14/18 06:21 Recent Labs: Laboratory Last Values WBC 5.7 Th/cmm (4.8-10.8) 04/14/18 06:21 RBC 4.47 Mil/cmm (3.80-5.20) 04/14/18 06:21 Hgb 14.2 gm/dL (12-16) 04/14/18 06:21 Hct 42.4 % (41.0-60) 04/14/18 06:21 MCV 94.7 fl (81-100) 04/14/18 06:21 MCH 31.7 pg (27.0-31.0) H 04/14/18 06:21 MCHC Differential 33.5 pg (28.0-36.0) 04/14/18 06:21 RDW 13.5 % (11.5-20.0) 04/14/18 06:21 Plt Count 313 Th/cmm (150-400) 04/14/18 06:21 MPV 7.8 fl 04/14/18 06:21 Neutrophils % 67.5 % (40.0-80.0) 04/14/18 06:21 Lymphocytes % 22.5 % (20.0-50.0) 04/14/18 06:21 Monocytes % 7.6 % (2.0-10.0) 04/14/18 06:21 Eosinophils % 2.2 % (0.0-5.0) 04/14/18 06:21 Basophils % 0.2 % (0.0-2.0) 04/14/18 06:21 Sodium 138 mEq/L (136-145) 04/14/18 06:21 Potassium 4.4 mEq/L (3.5-5.1) 04/14/18 06:21 Chloride 104 mEq/L (98-107) 04/14/18 06:21 Carbon Dioxide 25.8 mEq/L (21.0-31.0) 04/14/18 06:21 Anion Gap 12.6 (7.0-16.0) 04/14/18 06:21 BUN 20 mg/dL (7-25) 04/14/18 06:21 Creatinine 0.9 mg/dL (0.6-1.2) 04/14/18 06:21 Est GFR ( Amer) > 60.0 ml/min (>90) 04/14/18 06:21 Est GFR (Non-Af Amer) > 60.0 ml/min 04/14/18 06:21 BUN/Creatinine Ratio 22.2 04/14/18 06:21 Glucose 95 mg/dL (70-105) 04/14/18 06:21 POC Glucose 66 MG/DL (70 - 105) L 04/12/18 17:37 Hemoglobin A1c % 5.3 % (4.0-6.0) 04/12/18 17:26 Calcium 9.8 mg/dL (8.6-10.3) 04/14/18 06:21 Total Bilirubin 0.9 mg/dL (0.3-1.0) 04/14/18 06:21 AST 32 U/L (13-39) 04/14/18 06:21 ALT 18 U/L (7-52) 04/14/18 06:21 Alkaline Phosphatase 104 U/L (34-104) 04/14/18 06:21 Total Protein 7.2 gm/dL (6.0-8.3) 04/14/18 06:21 Albumin 4.0 gm/dL (3.7-5.3) 04/14/18 06:21 Globulin 3.2 gm/dL 04/14/18 06:21 Albumin/Globulin Ratio 1.3 (1.0-1.8) 04/14/18 06:21 Triglycerides 83 mg/dL (<150) 04/13/18 09:55 Cholesterol 143 mg/dL (<200) 04/13/18 09:55 LDL Cholesterol Direct 95 mg/dL (75-193) 04/13/18 09:55 HDL Cholesterol 40 mg/dL (23-92) 04/13/18 09:55 - Physical Exam Vitals and I&O: Vital Signs Temp 96.6 F 04/18/18 06:06 Pulse 74 04/18/18 08:41 Resp 19 04/18/18 06:06 BP 128/82 04/18/18 08:41 Pulse Ox 92 04/18/18 06:06 Intake & Output 04/17/18 04/18/18 04/18/18 18:59 06:59 18:59 Intake Total 850 180 Balance 850 180 Intake: Oral 850 180 Other: # Voids 4 1 # Bowel Movements 1 0 Stool Characteristics Soft Soft Formed Formed Active Medications: Current Medications Acetaminophen (Tylenol) 650 mg PO Q4HR PRN PRN Reason: Mild Pain / Temp above 100 Stop: 06/11/18 16:50 Al Hydrox/Mg Hydrox/Simethicone (Maalox) 30 ml PO Q4HR PRN PRN Reason: GI DISTRESS Stop: 06/11/18 16:50 Albuterol Sulfate (Albuterol 2.5mg/3ml Neb Ud) 2.5 mg HHN Q4H PRN PRN Reason: Shortness of Breath or Wheeze Stop: 06/11/18 16:37 Aspirin (Aspirin Chewable) 81 mg PO DAILY [facility] Stop: 06/12/18 08:59 Last Admin: 04/18/18 08:40 Dose: 81 mg Bisacodyl (Dulcolax 10 Mg Supp) 10 mg RC DAILY PRN PRN Reason: Constipation Stop: 06/11/18 16:35 Digoxin (Lanoxin) 0.125 mg PO DAILY [facility] Stop: 06/12/18 08:59 Last Admin: 04/18/18 08:41 Dose: 0.125 mg Divalproex Sodium (Depakote Dr) 125 mg PO Q12HR [facility]; Protocol Stop: 06/14/18 20:59 Last Admin: 04/18/18 08:41 Dose: 125 mg Docusate Sodium (Colace) 100 mg PO BID [facility] Stop: 06/11/18 16:59 Last Admin: 04/18/18 08:41 Dose: 100 mg Famotidine (Pepcid) 20 mg PO DAILY [facility] Stop: 06/12/18 08:59 Last Admin: 04/18/18 08:41 Dose: 20 mg Gabapentin (Neurontin) 300 mg PO Q8HR [facility] Stop: 06/11/18 20:59 Last Admin: 04/17/18 20:53 Dose: 300 mg Lorazepam (Ativan) 1 mg PO Q8HR PRN; Protocol PRN Reason: Anxiety Stop: 06/11/18 16:26 Last Admin: 04/17/18 20:54 Dose: 1 mg Magnesium Hydroxide (Milk Of Magnesia) 30 ml PO HS PRN PRN Reason: Constipation Magnesium Oxide (Mag-Oxide) 400 mg PO BID [facility] Stop: 06/11/18 16:59 Last Admin: 04/18/18 08:41 Dose: 400 mg Metoprolol Tartrate (Lopressor) 25 mg PO Q12HR [facility] Stop: 06/11/18 20:59 Last Admin: 04/18/18 08:41 Dose: 25 mg Multivitamins/Vitamin C (Theragran) 1 tab PO DAILY [facility] Stop: 06/12/18 08:59 Last Admin: 04/18/18 08:40 Dose: 1 tab Paroxetine HCl (Paxil) 20 mg PO DAILY [facility]; Protocol Stop: 06/12/18 08:59 Last Admin: 04/18/18 08:40 Dose: 20 mg Polyethylene Glycol (Miralax) 17 gm PO DAILY [facility] Stop: 06/12/18 08:59 Last Admin: 04/18/18 08:40 Dose: 17 gm Pramipexole Dihydrochloride (Mirapex) 0.25 mg PO HS [facility]; Protocol Stop: 06/11/18 20:59 Last Admin: 04/17/18 20:53 Dose: 0.25 mg Quetiapine Fumarate (Seroquel) 100 mg PO HS [facility]; Protocol Stop: 06/12/18 20:59 Last Admin: 04/17/18 20:53 Dose: 100 mg Triamcinolone Acetonide (Kenalog 0.1%) 1 appl TP Q12HR PRN PRN Reason: Itching Stop: 06/11/18 20:59 Zolpidem Tartrate (Ambien) 5 mg PO HS PRN PRN Reason: Insomnia Stop: 06/11/18 16:50 Last Admin: 04/17/18 20:54 Dose: 5 mg General: Alert, Other (Confused) HEENT: Atraumatic Neck: Supple Cardiovascular: Regular rate Lungs: Clear to auscultation Abdomen: Bowel sounds, Soft Extremities: Other (No edema) Neurological: Other (Unstable gait) Skin: Other (Warm and dry) Psych/Mental Status: Other (Confused, not oriented) Assessment/Plan - Assessment Assessment: Patient is sleeping but arousable. Dx: Increased in agitation, Psychosis, A-fib , HTN, CAD, CHF. - Plan Plan: Patient follow by Psychiatry, will request labs, will continue to monitor. Nutritional Asmnt/Malnutr-PDOC - Dietary Evaluation Malnutrition Findings (Please click <Entered> for more info): Nutritional Asmnt/Malnutrition Start: 04/16/18 14: 22 Text: Status: Complete Freq: Protocol: Document 04/16/18 14:22 CAMILLE (Rec: 04/16/18 14:31 [email or web address]) Nutritional Asmnt/Malnutrition Patient General Information Nutritional Screening Moderate Risk Diagnosis psychosis Pertinent Medical Hx/Surgical Hx a fib, CAD, CHF, HTN, dementia , schizophrenia, weakness Subjective Information Pt seen eating in dining room. Per EMR, PO intake 50-75% over the past two days, meeting 100% of nutritional needs. Current Diet Order/ Nutrition Support [facility] soft ground, honey thick liquid Pertinent Medications colace, pepcid, mag-oxide, theragran, miralax, seroquel Pertinent Labs 04/14 nutrition related labs WNL Nutritional Hx/Data Height 1.6 m Height (Calculated Centimeters) 160.0 Current Weight (lbs) 43.091 kg Weight (Calculated Kilograms) 43.1 Weight (Calculated Grams) 07833.3 [place] Body Weight 115 Body Mass Index (BMI) 16.8 Weight Status Underweight GI Symptoms GI Symptoms None Last BM 04/15 Difficult in: None Skin Integrity/Comment: skin intact, bruise Current %PO Fair (50-74%) Estimated Nutritional Goals BEE in Kcals: Using Current wt Calories/Kcals/Kg 30-35 Kcals Calculated 1615-1542 Protein: Using Current wt Protein g/k.2-1.4 Protein Calculated 52-60 Fluid: ml 1290-1505ml (1ml/kcal) Nutritional Problem No current Nutrition Prob Problem N/A Intervention/Recommendation Comments 1. Continue with [facility] soft ground diet as ordered. 2. Monitor PO intake, wt, labs and skin integrity 3. F/U as low risk in 7 days, 04/23 Expected Outcomes/Goals Expected Outcomes/Goals 1. PO intake to meet at least 75% of nutritional needs. 2. Wt stability, skin to remain intact, labs to approach WNL.
--- NOTE | 2018-04-19 00:52 | Progress Notes ---
DATE: 04/18/2018 PSYCHIATRIC PROGRESS NOTE SUBJECTIVE: Staff was spoken to. The patient is interviewed. Mood is noted to be irritable. Affect is constricted. The patient is still having difficult time to cope with the stress. No side effects to the medications are noted at this time. Insight and judgment are noted to be still impaired. Impulse control seems to be limited. The patient is screaming and yelling and needs to be redirected. ASSESSMENT: The patient is still psychotic and impulsive. PLAN: To continue the patient with the current medications and followup. JOB# [id number]
[2018-04-19] MEDS: Multivitamin Tab PO SCH (08:11)
[2018-04-19] MEDS: POLYETHYLENE GLYCOL 3350 17 GM PACK PO SCH (08:11)
[2018-04-19] MEDS: Aspirin 81mg Chewable Tab PO SCH (08:12)
--- NOTE | 2018-04-19 09:14 | General Progress Note ---
Subjective - Review of Systems Service Date: 04/19/18 Subjective: Patient is confused. Objective - Results Result Diagrams: 04/14/18 06:21 04/14/18 06:21 Recent Labs: Laboratory Last Values WBC 5.7 Th/cmm (4.8-10.8) 04/14/18 06:21 RBC 4.47 Mil/cmm (3.80-5.20) 04/14/18 06:21 Hgb 14.2 gm/dL (12-16) 04/14/18 06:21 Hct 42.4 % (41.0-60) 04/14/18 06:21 MCV 94.7 fl (81-100) 04/14/18 06:21 MCH 31.7 pg (27.0-31.0) H 04/14/18 06:21 MCHC Differential 33.5 pg (28.0-36.0) 04/14/18 06:21 RDW 13.5 % (11.5-20.0) 04/14/18 06:21 Plt Count 313 Th/cmm (150-400) 04/14/18 06:21 MPV 7.8 fl 04/14/18 06:21 Neutrophils % 67.5 % (40.0-80.0) 04/14/18 06:21 Lymphocytes % 22.5 % (20.0-50.0) 04/14/18 06:21 Monocytes % 7.6 % (2.0-10.0) 04/14/18 06:21 Eosinophils % 2.2 % (0.0-5.0) 04/14/18 06:21 Basophils % 0.2 % (0.0-2.0) 04/14/18 06:21 Sodium 138 mEq/L (136-145) 04/14/18 06:21 Potassium 4.4 mEq/L (3.5-5.1) 04/14/18 06:21 Chloride 104 mEq/L (98-107) 04/14/18 06:21 Carbon Dioxide 25.8 mEq/L (21.0-31.0) 04/14/18 06:21 Anion Gap 12.6 (7.0-16.0) 04/14/18 06:21 BUN 20 mg/dL (7-25) 04/14/18 06:21 Creatinine 0.9 mg/dL (0.6-1.2) 04/14/18 06:21 Est GFR ( Amer) > 60.0 ml/min (>90) 04/14/18 06:21 Est GFR (Non-Af Amer) > 60.0 ml/min 04/14/18 06:21 BUN/Creatinine Ratio 22.2 04/14/18 06:21 Glucose 95 mg/dL (70-105) 04/14/18 06:21 POC Glucose 66 MG/DL (70 - 105) L 04/12/18 17:37 Hemoglobin A1c % 5.3 % (4.0-6.0) 04/12/18 17:26 Calcium 9.8 mg/dL (8.6-10.3) 04/14/18 06:21 Total Bilirubin 0.9 mg/dL (0.3-1.0) 04/14/18 06:21 AST 32 U/L (13-39) 04/14/18 06:21 ALT 18 U/L (7-52) 04/14/18 06:21 Alkaline Phosphatase 104 U/L (34-104) 04/14/18 06:21 Total Protein 7.2 gm/dL (6.0-8.3) 04/14/18 06:21 Albumin 4.0 gm/dL (3.7-5.3) 04/14/18 06:21 Globulin 3.2 gm/dL 04/14/18 06:21 Albumin/Globulin Ratio 1.3 (1.0-1.8) 04/14/18 06:21 Triglycerides 83 mg/dL (<150) 04/13/18 09:55 Cholesterol 143 mg/dL (<200) 04/13/18 09:55 LDL Cholesterol Direct 95 mg/dL (75-193) 04/13/18 09:55 HDL Cholesterol 40 mg/dL (23-92) 04/13/18 09:55 - Physical Exam Vitals and I&O: Vital Signs Temp 97.2 F 04/19/18 06:17 Pulse 70 04/19/18 08:12 Resp 18 04/19/18 07:14 BP 117/83 04/19/18 08:12 Pulse Ox 98 04/19/18 07:14 Intake & Output 04/18/18 04/19/18 04/19/18 18:59 06:59 18:59 Intake Total 960 120 Balance 960 120 Intake: Oral 960 120 Other: # Voids 3 3 # Bowel Movements 1 Stool Characteristics Soft Formed Active Medications: Current Medications Acetaminophen (Tylenol) 650 mg PO Q4HR PRN PRN Reason: Mild Pain / Temp above 100 Stop: 06/11/18 16:50 Al Hydrox/Mg Hydrox/Simethicone (Maalox) 30 ml PO Q4HR PRN PRN Reason: GI DISTRESS Stop: 06/11/18 16:50 Albuterol Sulfate (Albuterol 2.5mg/3ml Neb Ud) 2.5 mg HHN Q4H PRN PRN Reason: Shortness of Breath or Wheeze Stop: 06/11/18 16:37 Aspirin (Aspirin Chewable) 81 mg PO DAILY [facility] Stop: 06/12/18 08:59 Last Admin: 04/19/18 08:12 Dose: 81 mg Bisacodyl (Dulcolax 10 Mg Supp) 10 mg RC DAILY PRN PRN Reason: Constipation Stop: 06/11/18 16:35 Digoxin (Lanoxin) 0.125 mg PO DAILY [facility] Stop: 06/12/18 08:59 Last Admin: 04/19/18 08:11 Dose: 0.125 mg Divalproex Sodium (Depakote Dr) 125 mg PO Q12HR [facility]; Protocol Stop: 06/14/18 20:59 Last Admin: 04/19/18 08:11 Dose: 125 mg Docusate Sodium (Colace) 100 mg PO BID [facility] Stop: 06/11/18 16:59 Last Admin: 04/19/18 08:12 Dose: 100 mg Famotidine (Pepcid) 20 mg PO DAILY [facility] Stop: 06/12/18 08:59 Last Admin: 04/19/18 08:12 Dose: 20 mg Gabapentin (Neurontin) 300 mg PO Q8HR [facility] Stop: 06/11/18 20:59 Last Admin: 04/19/18 05:46 Dose: 300 mg Lorazepam (Ativan) 1 mg PO Q8HR PRN; Protocol PRN Reason: Anxiety Stop: 06/11/18 16:26 Last Admin: 04/17/18 20:54 Dose: 1 mg Magnesium Hydroxide (Milk Of Magnesia) 30 ml PO HS PRN PRN Reason: Constipation Magnesium Oxide (Mag-Oxide) 400 mg PO BID [facility] Stop: 06/11/18 16:59 Last Admin: 04/19/18 08:12 Dose: 400 mg Metoprolol Tartrate (Lopressor) 25 mg PO Q12HR [facility] Stop: 06/11/18 20:59 Last Admin: 04/19/18 08:12 Dose: 25 mg Multivitamins/Vitamin C (Theragran) 1 tab PO DAILY [facility] Stop: 06/12/18 08:59 Last Admin: 04/19/18 08:11 Dose: 1 tab Paroxetine HCl (Paxil) 20 mg PO DAILY [facility]; Protocol Stop: 06/12/18 08:59 Last Admin: 04/19/18 08:12 Dose: 20 mg Polyethylene Glycol (Miralax) 17 gm PO DAILY [facility] Stop: 06/12/18 08:59 Last Admin: 04/19/18 08:11 Dose: 17 gm Pramipexole Dihydrochloride (Mirapex) 0.25 mg PO HS [facility]; Protocol Stop: 06/11/18 20:59 Last Admin: 04/18/18 20:43 Dose: 0.25 mg Quetiapine Fumarate (Seroquel) 100 mg PO HS [facility]; Protocol Stop: 06/12/18 20:59 Last Admin: 04/18/18 23:44 Dose: 100 mg Triamcinolone Acetonide (Kenalog 0.1%) 1 appl TP Q12HR PRN PRN Reason: Itching Stop: 06/11/18 20:59 Zolpidem Tartrate (Ambien) 5 mg PO HS PRN PRN Reason: Insomnia Stop: 06/11/18 16:50 Last Admin: 04/18/18 20:45 Dose: 5 mg General: Alert, Other (Confused) HEENT: Atraumatic Neck: Supple Cardiovascular: Regular rate Lungs: Clear to auscultation Abdomen: Bowel sounds, Soft Extremities: Other (No edema) Neurological: Other (Unstable gait) Skin: Other (Warm and dry) Psych/Mental Status: Other (Confused, not oriented) Assessment/Plan - Assessment Assessment: Patient is sleeping but arousable. Dx: Increased in agitation, Psychosis, A-fib , HTN, CAD, CHF. - Plan Plan: Patient follow by Psychiatry, will request labs, will continue to monitor. Nutritional Asmnt/Malnutr-PDOC - Dietary Evaluation Malnutrition Findings (Please click <Entered> for more info): Nutritional Asmnt/Malnutrition Start: 04/16/18 14: 22 Text: Status: Complete Freq: Protocol: Document 04/16/18 14:22 CAMILLE (Rec: 04/16/18 14:31 CAMILLE [email or web address]) Nutritional Asmnt/Malnutrition Patient General Information Nutritional Screening Moderate Risk Diagnosis psychosis Pertinent Medical Hx/Surgical Hx a fib, CAD, CHF, HTN, dementia , schizophrenia, weakness Subjective Information Pt seen eating in dining room. Per EMR, PO intake 50-75% over the past two days, meeting 100% of nutritional needs. Current Diet Order/ Nutrition Support [facility] soft ground, honey thick liquid Pertinent Medications colace, pepcid, mag-oxide, theragran, miralax, seroquel Pertinent Labs 04/14 nutrition related labs WNL Nutritional Hx/Data Height 1.6 m Height (Calculated Centimeters) 160.0 Current Weight (lbs) 43.091 kg Weight (Calculated Kilograms) 43.1 Weight (Calculated Grams) 86860.3 [place] Body Weight 115 Body Mass Index (BMI) 16.8 Weight Status Underweight GI Symptoms GI Symptoms None Last BM 04/15 Difficult in: None Skin Integrity/Comment: skin intact, bruise Current %PO Fair (50-74%) Estimated Nutritional Goals BEE in Kcals: Using Current wt Calories/Kcals/Kg 30-35 Kcals Calculated 7900-9683 Protein: Using Current wt Protein g/k.2-1.4 Protein Calculated 52-60 Fluid: ml 1290-1505ml (1ml/kcal) Nutritional Problem No current Nutrition Prob Problem N/A Intervention/Recommendation Comments 1. Continue with [facility] soft ground diet as ordered. 2. Monitor PO intake, wt, labs and skin integrity 3. F/U as low risk in 7 days, 04/23 Expected Outcomes/Goals Expected Outcomes/Goals 1. PO intake to meet at least 75% of nutritional needs. 2. Wt stability, skin to remain intact, labs to approach WNL.
--- NOTE | 2018-04-19 11:23 | Progress Notes ---
DATE: 04/19/2018 SUBJECTIVE: Staff was spoken to. The patient is interviewed. Mood is noted to be irritable. Affect is constricted. The patient is still impulsive and has been having acute mood swings. No side effects to the medications are noted. The patient is currently on 100 mg of the Seroquel at night time. The patient is also placed on Depakote 125 mg twice a day for her aggressive behavior. No side effects to the medications are noted at this time. The patient's sleep is noted to be poor. Appetite is noted to be improving. ASSESSMENT: The patient is still impulsive. PLAN: To continue the patient with the current medications and followup. JOB# [id number]
--- NOTE | 2018-04-20 09:07 | General Progress Note ---
Subjective - Review of Systems Service Date: 04/20/18 Subjective: Patient is confused. Objective - Results Result Diagrams: 04/14/18 06:21 04/14/18 06:21 Recent Labs: Laboratory Last Values WBC 5.7 Th/cmm (4.8-10.8) 04/14/18 06:21 RBC 4.47 Mil/cmm (3.80-5.20) 04/14/18 06:21 Hgb 14.2 gm/dL (12-16) 04/14/18 06:21 Hct 42.4 % (41.0-60) 04/14/18 06:21 MCV 94.7 fl (81-100) 04/14/18 06:21 MCH 31.7 pg (27.0-31.0) H 04/14/18 06:21 MCHC Differential 33.5 pg (28.0-36.0) 04/14/18 06:21 RDW 13.5 % (11.5-20.0) 04/14/18 06:21 Plt Count 313 Th/cmm (150-400) 04/14/18 06:21 MPV 7.8 fl 04/14/18 06:21 Neutrophils % 67.5 % (40.0-80.0) 04/14/18 06:21 Lymphocytes % 22.5 % (20.0-50.0) 04/14/18 06:21 Monocytes % 7.6 % (2.0-10.0) 04/14/18 06:21 Eosinophils % 2.2 % (0.0-5.0) 04/14/18 06:21 Basophils % 0.2 % (0.0-2.0) 04/14/18 06:21 Sodium 138 mEq/L (136-145) 04/14/18 06:21 Potassium 4.4 mEq/L (3.5-5.1) 04/14/18 06:21 Chloride 104 mEq/L (98-107) 04/14/18 06:21 Carbon Dioxide 25.8 mEq/L (21.0-31.0) 04/14/18 06:21 Anion Gap 12.6 (7.0-16.0) 04/14/18 06:21 BUN 20 mg/dL (7-25) 04/14/18 06:21 Creatinine 0.9 mg/dL (0.6-1.2) 04/14/18 06:21 Est GFR ( Amer) > 60.0 ml/min (>90) 04/14/18 06:21 Est GFR (Non-Af Amer) > 60.0 ml/min 04/14/18 06:21 BUN/Creatinine Ratio 22.2 04/14/18 06:21 Glucose 95 mg/dL (70-105) 04/14/18 06:21 POC Glucose 66 MG/DL (70 - 105) L 04/12/18 17:37 Hemoglobin A1c % 5.3 % (4.0-6.0) 04/12/18 17:26 Calcium 9.8 mg/dL (8.6-10.3) 04/14/18 06:21 Total Bilirubin 0.9 mg/dL (0.3-1.0) 04/14/18 06:21 AST 32 U/L (13-39) 04/14/18 06:21 ALT 18 U/L (7-52) 04/14/18 06:21 Alkaline Phosphatase 104 U/L (34-104) 04/14/18 06:21 Total Protein 7.2 gm/dL (6.0-8.3) 04/14/18 06:21 Albumin 4.0 gm/dL (3.7-5.3) 04/14/18 06:21 Globulin 3.2 gm/dL 04/14/18 06:21 Albumin/Globulin Ratio 1.3 (1.0-1.8) 04/14/18 06:21 Triglycerides 83 mg/dL (<150) 04/13/18 09:55 Cholesterol 143 mg/dL (<200) 04/13/18 09:55 LDL Cholesterol Direct 95 mg/dL (75-193) 04/13/18 09:55 HDL Cholesterol 40 mg/dL (23-92) 04/13/18 09:55 - Physical Exam Vitals and I&O: Vital Signs Temp 98 F 04/20/18 06:23 Pulse 68 04/20/18 07:48 Resp 18 04/20/18 07:48 BP 122/64 04/20/18 06:23 Pulse Ox 95 04/20/18 07:48 Intake & Output 08/30/18 08/31/18 08/31/18 18:59 06:59 18:59 Intake Total 1600 120 Balance 1600 120 Intake: Oral 1600 120 Other: # Voids 3 3 # Bowel Movements 0 Stool Characteristics Soft Formed Active Medications: Current Medications Acetaminophen (Tylenol) 650 mg PO Q4HR PRN PRN Reason: Mild Pain / Temp above 100 Stop: 06/11/18 16:50 Al Hydrox/Mg Hydrox/Simethicone (Maalox) 30 ml PO Q4HR PRN PRN Reason: GI DISTRESS Stop: 06/11/18 16:50 Albuterol Sulfate (Albuterol 2.5mg/3ml Neb Ud) 2.5 mg HHN Q4H PRN PRN Reason: Shortness of Breath or Wheeze Stop: 06/11/18 16:37 Aspirin (Aspirin Chewable) 81 mg PO DAILY [facility] Stop: 06/12/18 08:59 Last Admin: 04/19/18 08:12 Dose: 81 mg Bisacodyl (Dulcolax 10 Mg Supp) 10 mg RC DAILY PRN PRN Reason: Constipation Stop: 06/11/18 16:35 Digoxin (Lanoxin) 0.125 mg PO DAILY [facility] Stop: 06/12/18 08:59 Last Admin: 04/19/18 08:11 Dose: 0.125 mg Divalproex Sodium (Depakote Dr) 125 mg PO Q12HR [facility]; Protocol Stop: 06/14/18 20:59 Last Admin: 04/19/18 20:54 Dose: 125 mg Docusate Sodium (Colace) 100 mg PO BID [facility] Stop: 06/11/18 16:59 Last Admin: 04/19/18 17:12 Dose: 100 mg Famotidine (Pepcid) 20 mg PO DAILY [facility] Stop: 06/12/18 08:59 Last Admin: 04/19/18 08:12 Dose: 20 mg Gabapentin (Neurontin) 300 mg PO Q8HR [facility] Stop: 06/11/18 20:59 Last Admin: 04/20/18 05:49 Dose: 300 mg Lorazepam (Ativan) 1 mg PO Q8HR PRN; Protocol PRN Reason: Anxiety Stop: 06/11/18 16:26 Last Admin: 04/19/18 13:38 Dose: 1 mg Magnesium Hydroxide (Milk Of Magnesia) 30 ml PO HS PRN PRN Reason: Constipation Magnesium Oxide (Mag-Oxide) 400 mg PO BID [facility] Stop: 06/11/18 16:59 Last Admin: 04/19/18 17:12 Dose: 400 mg Metoprolol Tartrate (Lopressor) 25 mg PO Q12HR [facility] Stop: 06/11/18 20:59 Last Admin: 04/19/18 20:38 Dose: 25 mg Multivitamins/Vitamin C (Theragran) 1 tab PO DAILY [facility] Stop: 06/12/18 08:59 Last Admin: 04/19/18 08:11 Dose: 1 tab Paroxetine HCl (Paxil) 20 mg PO DAILY [facility]; Protocol Stop: 06/12/18 08:59 Last Admin: 04/19/18 08:12 Dose: 20 mg Polyethylene Glycol (Miralax) 17 gm PO DAILY [facility] Stop: 06/12/18 08:59 Last Admin: 04/19/18 08:11 Dose: 17 gm Pramipexole Dihydrochloride (Mirapex) 0.25 mg PO HS [facility]; Protocol Stop: 06/11/18 20:59 Last Admin: 04/19/18 20:53 Dose: 0.25 mg Quetiapine Fumarate (Seroquel) 100 mg PO HS [facility]; Protocol Stop: 06/12/18 20:59 Last Admin: 04/19/18 20:38 Dose: 100 mg Triamcinolone Acetonide (Kenalog 0.1%) 1 appl TP Q12HR PRN PRN Reason: Itching Stop: 06/11/18 20:59 Zolpidem Tartrate (Ambien) 5 mg PO HS PRN PRN Reason: Insomnia Stop: 06/11/18 16:50 Last Admin: 04/19/18 20:38 Dose: 5 mg General: Alert, Other (Confused) HEENT: Atraumatic Neck: Supple Cardiovascular: Regular rate Lungs: Clear to auscultation Abdomen: Bowel sounds, Soft Extremities: Other (No edema) Neurological: Other (Unstable gait) Skin: Other (Warm and dry) Psych/Mental Status: Other (Confused, not oriented) Assessment/Plan - Assessment Assessment: Patient is sleeping but arousable. Dx: Increased in agitation, Psychosis, A-fib , HTN, CAD, CHF. - Plan Plan: Patient follow by Psychiatry, will request labs, will continue to monitor. Nutritional Asmnt/Malnutr-PDOC - Dietary Evaluation Malnutrition Findings (Please click <Entered> for more info): Nutritional Asmnt/Malnutrition Start: 04/16/18 14: 22 Text: Status: Complete Freq: Protocol: Document 04/16/18 14:22 GABRIELLELISA (Rec: 04/16/18 14:31 [email or web address]) Nutritional Asmnt/Malnutrition Patient General Information Nutritional Screening Moderate Risk Diagnosis psychosis Pertinent Medical Hx/Surgical Hx a fib, CAD, CHF, HTN, dementia , schizophrenia, weakness Subjective Information Pt seen eating in dining room. Per EMR, PO intake 50-75% over the past two days, meeting 100% of nutritional needs. Current Diet Order/ Nutrition Support [facility] soft ground, honey thick liquid Pertinent Medications colace, pepcid, mag-oxide, theragran, miralax, seroquel Pertinent Labs 04/14 nutrition related labs WNL Nutritional Hx/Data Height 1.6 m Height (Calculated Centimeters) 160.0 Current Weight (lbs) 43.091 kg Weight (Calculated Kilograms) 43.1 Weight (Calculated Grams) 91679.3 [place] Body Weight 115 Body Mass Index (BMI) 16.8 Weight Status Underweight GI Symptoms GI Symptoms None Last BM 04/15 Difficult in: None Skin Integrity/Comment: skin intact, bruise Current %PO Fair (50-74%) Estimated Nutritional Goals BEE in Kcals: Using Current wt Calories/Kcals/Kg 30-35 Kcals Calculated 3249-1177 Protein: Using Current wt Protein g/k.2-1.4 Protein Calculated 52-60 Fluid: ml 1290-1505ml (1ml/kcal) Nutritional Problem No current Nutrition Prob Problem N/A Intervention/Recommendation Comments 1. Continue with [facility] soft ground diet as ordered. 2. Monitor PO intake, wt, labs and skin integrity 3. F/U as low risk in 7 days, 04/23 Expected Outcomes/Goals Expected Outcomes/Goals 1. PO intake to meet at least 75% of nutritional needs. 2. Wt stability, skin to remain intact, labs to approach WNL.
[2018-04-20] MEDS: Multivitamin Tab PO SCH (09:21)
[2018-04-20] MEDS: POLYETHYLENE GLYCOL 3350 17 GM PACK PO SCH (09:21)
[2018-04-20] MEDS: Aspirin 81mg Chewable Tab PO SCH (09:22)
--- NOTE | 2018-04-20 21:53 | Progress Notes ---
DATE: 04/20/2018 SUBJECTIVE: Staff was spoken to. The patient is interviewed. Mood is noted to be irritable. Affect is constricted. The patient has been still very aggressive and agitated. The patient is currently on 100 mg of the Seroquel at night time and the patient is also receiving the Depakote for her mood swings. The patient has been having difficult time to cope with the stress. ASSESSMENT: The patient is still impulsive. PLAN: To continue the patient on medications. Encouraged the patient to verbalize the concerns rather than to act out. JOB# [id number]
--- NOTE | 2018-04-21 07:46 | General Progress Note ---
Subjective - Review of Systems Service Date: 04/21/18 Subjective: Patient is confused. Objective - Results Result Diagrams: 04/14/18 06:21 04/14/18 06:21 Recent Labs: Laboratory Last Values WBC 5.7 Th/cmm (4.8-10.8) 04/14/18 06:21 RBC 4.47 Mil/cmm (3.80-5.20) 04/14/18 06:21 Hgb 14.2 gm/dL (12-16) 04/14/18 06:21 Hct 42.4 % (41.0-60) 04/14/18 06:21 MCV 94.7 fl (81-100) 04/14/18 06:21 MCH 31.7 pg (27.0-31.0) H 04/14/18 06:21 MCHC Differential 33.5 pg (28.0-36.0) 04/14/18 06:21 RDW 13.5 % (11.5-20.0) 04/14/18 06:21 Plt Count 313 Th/cmm (150-400) 04/14/18 06:21 MPV 7.8 fl 04/14/18 06:21 Neutrophils % 67.5 % (40.0-80.0) 04/14/18 06:21 Lymphocytes % 22.5 % (20.0-50.0) 04/14/18 06:21 Monocytes % 7.6 % (2.0-10.0) 04/14/18 06:21 Eosinophils % 2.2 % (0.0-5.0) 04/14/18 06:21 Basophils % 0.2 % (0.0-2.0) 04/14/18 06:21 Sodium 138 mEq/L (136-145) 04/14/18 06:21 Potassium 4.4 mEq/L (3.5-5.1) 04/14/18 06:21 Chloride 104 mEq/L (98-107) 04/14/18 06:21 Carbon Dioxide 25.8 mEq/L (21.0-31.0) 04/14/18 06:21 Anion Gap 12.6 (7.0-16.0) 04/14/18 06:21 BUN 20 mg/dL (7-25) 04/14/18 06:21 Creatinine 0.9 mg/dL (0.6-1.2) 04/14/18 06:21 Est GFR ( Amer) > 60.0 ml/min (>90) 04/14/18 06:21 Est GFR (Non-Af Amer) > 60.0 ml/min 04/14/18 06:21 BUN/Creatinine Ratio 22.2 04/14/18 06:21 Glucose 95 mg/dL (70-105) 04/14/18 06:21 POC Glucose 66 MG/DL (70 - 105) L 04/12/18 17:37 Hemoglobin A1c % 5.3 % (4.0-6.0) 04/12/18 17:26 Calcium 9.8 mg/dL (8.6-10.3) 04/14/18 06:21 Total Bilirubin 0.9 mg/dL (0.3-1.0) 04/14/18 06:21 AST 32 U/L (13-39) 04/14/18 06:21 ALT 18 U/L (7-52) 04/14/18 06:21 Alkaline Phosphatase 104 U/L (34-104) 04/14/18 06:21 Total Protein 7.2 gm/dL (6.0-8.3) 04/14/18 06:21 Albumin 4.0 gm/dL (3.7-5.3) 04/14/18 06:21 Globulin 3.2 gm/dL 04/14/18 06:21 Albumin/Globulin Ratio 1.3 (1.0-1.8) 04/14/18 06:21 Triglycerides 83 mg/dL (<150) 04/13/18 09:55 Cholesterol 143 mg/dL (<200) 04/13/18 09:55 LDL Cholesterol Direct 95 mg/dL (75-193) 04/13/18 09:55 HDL Cholesterol 40 mg/dL (23-92) 04/13/18 09:55 - Physical Exam Vitals and I&O: Vital Signs Temp 97.6 F 04/21/18 06:52 Pulse 68 04/21/18 06:52 Resp 18 04/21/18 06:52 BP 127/70 04/21/18 06:52 Pulse Ox 94 04/20/18 20:00 Intake & Output 04/20/18 04/21/18 04/21/18 18:59 06:59 18:59 Intake Total 1300 Balance 1300 Intake: Oral 1300 Other: # Voids 4 # Bowel Movements 0 Active Medications: Current Medications Acetaminophen (Tylenol) 650 mg PO Q4HR PRN PRN Reason: Mild Pain / Temp above 100 Stop: 06/11/18 16:50 Al Hydrox/Mg Hydrox/Simethicone (Maalox) 30 ml PO Q4HR PRN PRN Reason: GI DISTRESS Stop: 06/11/18 16:50 Albuterol Sulfate (Albuterol 2.5mg/3ml Neb Ud) 2.5 mg HHN Q4H PRN PRN Reason: Shortness of Breath or Wheeze Stop: 06/11/18 16:37 Aspirin (Aspirin Chewable) 81 mg PO DAILY [facility]S [facility] Stop: 06/12/18 08:59 Last Admin: 04/20/18 09:22 Dose: 81 mg Bisacodyl (Dulcolax 10 Mg Supp) 10 mg RC DAILY PRN PRN Reason: Constipation Stop: 06/11/18 16:35 Digoxin (Lanoxin) 0.125 mg PO DAILY [facility]S [facility] Stop: 06/12/18 08:59 Last Admin: 04/20/18 09:21 Dose: 0.125 mg Divalproex Sodium (Depakote Dr) 125 mg PO Q12HR [facility]; Protocol Stop: 06/14/18 20:59 Last Admin: 04/20/18 20:43 Dose: 125 mg Docusate Sodium (Colace) 100 mg PO BID [facility] 234 B[facility]S [facility] Stop: 06/11/18 16:59 Last Admin: 04/20/18 16:23 Dose: 100 mg Famotidine (Pepcid) 20 mg PO DAILY [facility] 234 B[facility]S [facility] Stop: 06/12/18 08:59 Last Admin: 04/20/18 09:21 Dose: 20 mg Gabapentin (Neurontin) 300 mg PO Q8HR [facility] Stop: 06/11/18 20:59 Last Admin: 04/20/18 20:42 Dose: 300 mg Lorazepam (Ativan) 1 mg PO Q8HR PRN; Protocol PRN Reason: Anxiety Stop: 06/11/18 16:26 Last Admin: 04/19/18 13:38 Dose: 1 mg Magnesium Hydroxide (Milk Of Magnesia) 30 ml PO HS PRN PRN Reason: Constipation Magnesium Oxide (Mag-Oxide) 400 mg PO BID [facility] 234 B[facility]S [facility] Stop: 06/11/18 16:59 Last Admin: 04/20/18 16:23 Dose: 400 mg Metoprolol Tartrate (Lopressor) 25 mg PO Q12HR [facility] Stop: 06/11/18 20:59 Last Admin: 04/20/18 20:45 Dose: 25 mg Multivitamins/Vitamin C (Theragran) 1 tab PO DAILY [facility] Stop: 06/12/18 08:59 Last Admin: 04/20/18 09:21 Dose: 1 tab Paroxetine HCl (Paxil) 20 mg PO DAILY [facility]; Protocol Stop: 06/12/18 08:59 Last Admin: 04/20/18 09:22 Dose: 20 mg Polyethylene Glycol (Miralax) 17 gm PO DAILY [facility] Stop: 06/12/18 08:59 Last Admin: 04/20/18 09:21 Dose: 17 gm Pramipexole Dihydrochloride (Mirapex) 0.25 mg PO HS [facility]; Protocol Stop: 06/11/18 20:59 Last Admin: 04/20/18 20:41 Dose: 0.25 mg Quetiapine Fumarate (Seroquel) 100 mg PO HS [facility]; Protocol Stop: 06/12/18 20:59 Last Admin: 04/20/18 20:42 Dose: 100 mg Triamcinolone Acetonide (Kenalog 0.1%) 1 appl TP Q12HR PRN PRN Reason: Itching Stop: 06/11/18 20:59 Zolpidem Tartrate (Ambien) 5 mg PO HS PRN PRN Reason: Insomnia Stop: 06/11/18 16:50 Last Admin: 04/20/18 20:43 Dose: 5 mg General: Alert, Other (Confused) HEENT: Atraumatic Neck: Supple Cardiovascular: Regular rate Lungs: Clear to auscultation Abdomen: Bowel sounds, Soft Extremities: Other (No edema) Neurological: Other (Unstable gait) Skin: Other (Warm and dry) Psych/Mental Status: Other (Confused, not oriented) Assessment/Plan - Assessment Assessment: Patient is sleeping but arousable. Dx: Increased in agitation, Psychosis, A-fib , HTN, CAD, CHF. - Plan Plan: Patient follow by Psychiatry, will request labs, will continue to monitor. Nutritional Asmnt/Malnutr-PDOC - Dietary Evaluation Malnutrition Findings (Please click <Entered> for more info): Nutritional Asmnt/Malnutrition Start: 04/16/18 14: 22 Text: Status: Complete Freq: Protocol: Document 04/16/18 14:22 [place]ILLE (Rec: 04/16/18 14:31 [id number]) Nutritional Asmnt/Malnutrition Patient General Information Nutritional Screening Moderate Risk Diagnosis psychosis Pertinent Medical Hx/Surgical Hx a fib, CAD, CHF, HTN, dementia , schizophrenia, weakness Subjective Information Pt seen eating in dining room. Per EMR, PO intake 50-75% over the past two days, meeting 100% of nutritional needs. Current Diet Order/ Nutrition Support [facility] soft ground, honey thick liquid Pertinent Medications colace, pepcid, mag-oxide, theragran, miralax, seroquel Pertinent Labs 04/14 nutrition related labs WNL Nutritional Hx/Data Height 1.6 m Height (Calculated Centimeters) 160.0 Current Weight (lbs) 43.091 kg Weight (Calculated Kilograms) 43.1 Weight (Calculated Grams) 09253.3 [place] Body Weight 115 Body Mass Index (BMI) 16.8 Weight Status Underweight GI Symptoms GI Symptoms None Last BM 04/15 Difficult in: None Skin Integrity/Comment: skin intact, bruise Current %PO Fair (50-74%) Estimated Nutritional Goals BEE in Kcals: Using Current wt Calories/Kcals/Kg 30-35 Kcals Calculated 8318-1962 Protein: Using Current wt Protein g/k.2-1.4 Protein Calculated 52-60 Fluid: ml 1290-1505ml (1ml/kcal) Nutritional Problem No current Nutrition Prob Problem N/A Intervention/Recommendation Comments 1. Continue with [facility] soft ground diet as ordered. 2. Monitor PO intake, wt, labs and skin integrity 3. F/U as low risk in 7 days, 04/23 Expected Outcomes/Goals Expected Outcomes/Goals 1. PO intake to meet at least 75% of nutritional needs. 2. Wt stability, skin to remain intact, labs to approach WNL.
[2018-04-21] MEDS: Multivitamin Tab PO SCH (09:48)
[2018-04-21] MEDS: Aspirin 81mg Chewable Tab PO SCH (09:50)
[2018-04-21] MEDS: POLYETHYLENE GLYCOL 3350 17 GM PACK PO SCH (09:50)
--- NOTE | 2018-04-21 13:17 | Progress Notes ---
DATE: 04/21/2018 SUBJECTIVE: Staff was spoken to. The patient is interviewed. Mood is noted to be irritable. Affect is constricted. Insight and judgment noted to be still impaired. Impulse control noted to poor. The patient is isolative and withdrawn. The patient been getting easily frustrated fan advised to get into the groups. The patient has been having mood swings. The patient is currently on the Seroquel, Paxil and the Depakote and has been able to tolerate the medications. ASSESSMENT: The patient is still impulsive. PLAN: To continue the patient with the supportive therapy and followup. JOB# [id number]
[2018-04-22] MEDS: Aspirin 81mg Chewable Tab PO SCH (09:22)
[2018-04-22] MEDS: POLYETHYLENE GLYCOL 3350 17 GM PACK PO SCH (09:22)
[2018-04-22] MEDS: Multivitamin Tab PO SCH (09:23)
--- NOTE | 2018-04-22 12:42 | Progress Notes ---
DATE: 04/22/2018 SUBJECTIVE: Staff was spoken to. The patient is interviewed. Mood is noted to be irritable. Affect is constricted. Coping skills are noted to be poor. The patient has been having difficult time to cope with the stress. The patient is isolative and withdrawn. His agitated behavior has been coming down. No side effects to the medications are noted. ASSESSMENT: The patient is still impulsive. PLAN: To continue the patient with the current medications and followup. JOB# [id number]
[2018-04-23] MEDS: Multivitamin Tab PO SCH ×2 (08:51→09:08)
[2018-04-23] MEDS: Aspirin 81mg Chewable Tab PO SCH ×2 (08:51→09:08)
[2018-04-23] MEDS: POLYETHYLENE GLYCOL 3350 17 GM PACK PO SCH ×2 (08:51→09:08)
--- NOTE | 2018-04-23 20:45 | Progress Notes ---
DATE: 04/23/2018 SUBJECTIVE: Staff was spoken to. The patient is interviewed. Mood is noted to be less irritable. Affect is appropriate. Not suicidal or homicidal. Coping skills are noted to be improving. Sleep and appetite also noted to be fair. The patient is currently on Depakote and Seroquel and has been able to tolerate. No side effects to the medications are noted. ASSESSMENT: The patient is stabilizing. PLAN: To continue the patient with the current medications and followup. JOB# [id number]
--- NOTE | 2018-04-24 08:43 | General Progress Note ---
Subjective - Review of Systems Service Date: 04/24/18 Subjective: Patient is confused. Objective - Results Result Diagrams: 04/14/18 06:21 04/14/18 06:21 Recent Labs: Laboratory Last Values WBC 5.7 Th/cmm (4.8-10.8) 04/14/18 06:21 RBC 4.47 Mil/cmm (3.80-5.20) 04/14/18 06:21 Hgb 14.2 gm/dL (12-16) 04/14/18 06:21 Hct 42.4 % (41.0-60) 04/14/18 06:21 MCV 94.7 fl (81-100) 04/14/18 06:21 MCH 31.7 pg (27.0-31.0) H 04/14/18 06:21 MCHC Differential 33.5 pg (28.0-36.0) 04/14/18 06:21 RDW 13.5 % (11.5-20.0) 04/14/18 06:21 Plt Count 313 Th/cmm (150-400) 04/14/18 06:21 MPV 7.8 fl 04/14/18 06:21 Neutrophils % 67.5 % (40.0-80.0) 04/14/18 06:21 Lymphocytes % 22.5 % (20.0-50.0) 04/14/18 06:21 Monocytes % 7.6 % (2.0-10.0) 04/14/18 06:21 Eosinophils % 2.2 % (0.0-5.0) 04/14/18 06:21 Basophils % 0.2 % (0.0-2.0) 04/14/18 06:21 Sodium 138 mEq/L (136-145) 04/14/18 06:21 Potassium 4.4 mEq/L (3.5-5.1) 04/14/18 06:21 Chloride 104 mEq/L (98-107) 04/14/18 06:21 Carbon Dioxide 25.8 mEq/L (21.0-31.0) 04/14/18 06:21 Anion Gap 12.6 (7.0-16.0) 04/14/18 06:21 BUN 20 mg/dL (7-25) 04/14/18 06:21 Creatinine 0.9 mg/dL (0.6-1.2) 04/14/18 06:21 Est GFR ( Amer) > 60.0 ml/min (>90) 04/14/18 06:21 Est GFR (Non-Af Amer) > 60.0 ml/min 04/14/18 06:21 BUN/Creatinine Ratio 22.2 04/14/18 06:21 Glucose 95 mg/dL (70-105) 04/14/18 06:21 POC Glucose 66 MG/DL (70 - 105) L 04/12/18 17:37 Hemoglobin A1c % 5.3 % (4.0-6.0) 04/12/18 17:26 Calcium 9.8 mg/dL (8.6-10.3) 04/14/18 06:21 Total Bilirubin 0.9 mg/dL (0.3-1.0) 04/14/18 06:21 AST 32 U/L (13-39) 04/14/18 06:21 ALT 18 U/L (7-52) 04/14/18 06:21 Alkaline Phosphatase 104 U/L (34-104) 04/14/18 06:21 Total Protein 7.2 gm/dL (6.0-8.3) 04/14/18 06:21 Albumin 4.0 gm/dL (3.7-5.3) 04/14/18 06:21 Globulin 3.2 gm/dL 04/14/18 06:21 Albumin/Globulin Ratio 1.3 (1.0-1.8) 04/14/18 06:21 Triglycerides 83 mg/dL (<150) 04/13/18 09:55 Cholesterol 143 mg/dL (<200) 04/13/18 09:55 LDL Cholesterol Direct 95 mg/dL (75-193) 04/13/18 09:55 HDL Cholesterol 40 mg/dL (23-92) 04/13/18 09:55 - Physical Exam Vitals and I&O: Vital Signs Temp 99.6 F 04/23/18 20:00 Pulse 51 04/24/18 07:51 Resp 16 04/24/18 08:26 BP 107/73 04/23/18 21:28 Pulse Ox 93 04/24/18 07:51 Intake & Output 04/23/18 04/24/18 04/24/18 18:59 06:59 18:59 Intake Total 840 Balance 840 Intake: Oral 840 Other: # Voids 3 # Bowel Movements 0 Active Medications: Current Medications Acetaminophen (Tylenol) 650 mg PO Q4HR PRN PRN Reason: Mild Pain / Temp above 100 Stop: 06/11/18 16:50 Al Hydrox/Mg Hydrox/Simethicone (Maalox) 30 ml PO Q4HR PRN PRN Reason: GI DISTRESS Stop: 06/11/18 16:50 Albuterol Sulfate (Albuterol 2.5mg/3ml Neb Ud) 2.5 mg HHN Q4H PRN PRN Reason: Shortness of Breath or Wheeze Stop: 06/11/18 16:37 Aspirin (Aspirin Chewable) 81 mg PO DAILY [facility] Stop: 06/12/18 08:59 Last Admin: 04/23/18 09:08 Dose: Not Given Bisacodyl (Dulcolax 10 Mg Supp) 10 mg RC DAILY PRN PRN Reason: Constipation Stop: 06/11/18 16:35 Digoxin (Lanoxin) 0.125 mg PO DAILY [facility] Stop: 06/12/18 08:59 Last Admin: 04/23/18 08:52 Dose: Not Given Divalproex Sodium (Depakote Dr) 125 mg PO Q12HR [facility]; Protocol Stop: 06/14/18 20:59 Last Admin: 04/23/18 21:28 Dose: 125 mg Docusate Sodium (Colace) 100 mg PO BID [facility] Stop: 06/11/18 16:59 Last Admin: 04/23/18 16:14 Dose: 100 mg Famotidine (Pepcid) 20 mg PO DAILY [facility] Stop: 06/12/18 08:59 Last Admin: 04/23/18 09:08 Dose: Not Given Gabapentin (Neurontin) 300 mg PO Q8HR [facility] Stop: 06/11/18 20:59 Last Admin: 04/24/18 05:31 Dose: 300 mg Lorazepam (Ativan) 1 mg PO Q8HR PRN; Protocol PRN Reason: Anxiety Stop: 06/11/18 16:26 Last Admin: 04/19/18 13:38 Dose: 1 mg Magnesium Hydroxide (Milk Of Magnesia) 30 ml PO HS PRN PRN Reason: Constipation Magnesium Oxide (Mag-Oxide) 400 mg PO BID [facility] Stop: 06/11/18 16:59 Last Admin: 04/23/18 16:14 Dose: 400 mg Metoprolol Tartrate (Lopressor) 25 mg PO Q12HR [facility] Stop: 06/11/18 20:59 Last Admin: 04/23/18 21:28 Dose: Not Given Multivitamins/Vitamin C (Theragran) 1 tab PO DAILY [facility] Stop: 06/12/18 08:59 Last Admin: 04/23/18 09:08 Dose: Not Given Paroxetine HCl (Paxil) 20 mg PO DAILY [facility]; Protocol Stop: 06/12/18 08:59 Last Admin: 04/23/18 09:08 Dose: Not Given Polyethylene Glycol (Miralax) 17 gm PO DAILY [facility] Stop: 06/12/18 08:59 Last Admin: 04/23/18 09:08 Dose: Not Given Pramipexole Dihydrochloride (Mirapex) 0.25 mg PO HS [facility]; Protocol Stop: 06/11/18 20:59 Last Admin: 04/23/18 21:29 Dose: 0.25 mg Quetiapine Fumarate (Seroquel) 100 mg PO HS [facility]; Protocol Stop: 06/12/18 20:59 Last Admin: 04/23/18 21:29 Dose: 100 mg Triamcinolone Acetonide (Kenalog 0.1%) 1 appl TP Q12HR PRN PRN Reason: Itching Stop: 06/11/18 20:59 Zolpidem Tartrate (Ambien) 5 mg PO HS PRN PRN Reason: Insomnia Stop: 06/11/18 16:50 Last Admin: 04/21/18 20:45 Dose: 5 mg General: Alert, Other (Confused) HEENT: Atraumatic Neck: Supple Cardiovascular: Regular rate Lungs: Clear to auscultation Abdomen: Bowel sounds, Soft Extremities: Other (No edema) Neurological: Other (Unstable gait) Skin: Other (Warm and dry) Psych/Mental Status: Other (Confused, not oriented) Assessment/Plan - Assessment Assessment: Patient is sleeping but arousable. Dx: Increased in agitation, Psychosis, A-fib , HTN, CAD, CHF. - Plan Plan: Patient follow by Psychiatry, will request labs, will continue to monitor. Nutritional Asmnt/Malnutr-PDOC - Dietary Evaluation Malnutrition Findings (Please click <Entered> for more info): Nutritional Asmnt/Malnutrition Start: 04/16/18 14: 22 Text: Status: Complete Freq: Protocol: Document 04/16/18 14:22 CAMILLE (Rec: 04/16/18 14:31 [email or web address]) Nutritional Asmnt/Malnutrition Patient General Information Nutritional Screening Moderate Risk Diagnosis psychosis Pertinent Medical Hx/Surgical Hx a fib, CAD, CHF, HTN, dementia , schizophrenia, weakness Subjective Information Pt seen eating in dining room. Per EMR, PO intake 50-75% over the past two days, meeting 100% of nutritional needs. Current Diet Order/ Nutrition Support [facility] soft ground, honey thick liquid Pertinent Medications colace, pepcid, mag-oxide, theragran, miralax, seroquel Pertinent Labs 04/14 nutrition related labs WNL Nutritional Hx/Data Height 1.6 m Height (Calculated Centimeters) 160.0 Current Weight (lbs) 43.091 kg Weight (Calculated Kilograms) 43.1 Weight (Calculated Grams) 35337.3 [place] Body Weight 115 Body Mass Index (BMI) 16.8 Weight Status Underweight GI Symptoms GI Symptoms None Last BM 04/15 Difficult in: None Skin Integrity/Comment: skin intact, bruise Current %PO Fair (50-74%) Estimated Nutritional Goals BEE in Kcals: Using Current wt Calories/Kcals/Kg 30-35 Kcals Calculated 8483-6365 Protein: Using Current wt Protein g/k.2-1.4 Protein Calculated 52-60 Fluid: ml 1290-1505ml (1ml/kcal) Nutritional Problem No current Nutrition Prob Problem N/A Intervention/Recommendation Comments 1. Continue with [facility] soft ground diet as ordered. 2. Monitor PO intake, wt, labs and skin integrity 3. F/U as low risk in 7 days, 04/23 Expected Outcomes/Goals Expected Outcomes/Goals 1. PO intake to meet at least 75% of nutritional needs. 2. Wt stability, skin to remain intact, labs to approach WNL.
[2018-04-24] MEDS: Aspirin 81mg Chewable Tab PO SCH (09:03)
[2018-04-24] MEDS: Multivitamin Tab PO SCH (09:05)
[2018-04-24] MEDS: POLYETHYLENE GLYCOL 3350 17 GM PACK PO SCH (09:05)
--- NOTE | 2018-04-25 02:37 | Progress Notes ---
DATE: 04/24/2018 SUBJECTIVE: Staff was spoken to. The patient is interviewed. Mood is noted to be irritable. Affect is constricted. Insight and judgment at this time are noted to be still impaired. Impulse control is poor. The patient is having problem with the paranoia, but denies any command hallucinations. No side effects to the medications are noted. ASSESSMENT: The patient is still impulsive and demented. PLAN: To continue the patient with the current medications. I encouraged the patient to verbalize the concerns rather than to act out. JOB# [id number]
--- NOTE | 2018-04-25 08:35 | General Progress Note ---
Subjective - Review of Systems Service Date: 04/25/18 Subjective: Patient is confused. Objective - Results Result Diagrams: 04/14/18 06:21 04/14/18 06:21 Recent Labs: Laboratory Last Values WBC 5.7 Th/cmm (4.8-10.8) 04/14/18 06:21 RBC 4.47 Mil/cmm (3.80-5.20) 04/14/18 06:21 Hgb 14.2 gm/dL (12-16) 04/14/18 06:21 Hct 42.4 % (41.0-60) 04/14/18 06:21 MCV 94.7 fl (81-100) 04/14/18 06:21 MCH 31.7 pg (27.0-31.0) H 04/14/18 06:21 MCHC Differential 33.5 pg (28.0-36.0) 04/14/18 06:21 RDW 13.5 % (11.5-20.0) 04/14/18 06:21 Plt Count 313 Th/cmm (150-400) 04/14/18 06:21 MPV 7.8 fl 04/14/18 06:21 Neutrophils % 67.5 % (40.0-80.0) 04/14/18 06:21 Lymphocytes % 22.5 % (20.0-50.0) 04/14/18 06:21 Monocytes % 7.6 % (2.0-10.0) 04/14/18 06:21 Eosinophils % 2.2 % (0.0-5.0) 04/14/18 06:21 Basophils % 0.2 % (0.0-2.0) 04/14/18 06:21 Sodium 138 mEq/L (136-145) 04/14/18 06:21 Potassium 4.4 mEq/L (3.5-5.1) 04/14/18 06:21 Chloride 104 mEq/L (98-107) 04/14/18 06:21 Carbon Dioxide 25.8 mEq/L (21.0-31.0) 04/14/18 06:21 Anion Gap 12.6 (7.0-16.0) 04/14/18 06:21 BUN 20 mg/dL (7-25) 04/14/18 06:21 Creatinine 0.9 mg/dL (0.6-1.2) 04/14/18 06:21 Est GFR ( Amer) > 60.0 ml/min (>90) 04/14/18 06:21 Est GFR (Non-Af Amer) > 60.0 ml/min 04/14/18 06:21 BUN/Creatinine Ratio 22.2 04/14/18 06:21 Glucose 95 mg/dL (70-105) 04/14/18 06:21 POC Glucose 66 MG/DL (70 - 105) L 04/12/18 17:37 Hemoglobin A1c % 5.3 % (4.0-6.0) 04/12/18 17:26 Calcium 9.8 mg/dL (8.6-10.3) 04/14/18 06:21 Total Bilirubin 0.9 mg/dL (0.3-1.0) 04/14/18 06:21 AST 32 U/L (13-39) 04/14/18 06:21 ALT 18 U/L (7-52) 04/14/18 06:21 Alkaline Phosphatase 104 U/L (34-104) 04/14/18 06:21 Total Protein 7.2 gm/dL (6.0-8.3) 04/14/18 06:21 Albumin 4.0 gm/dL (3.7-5.3) 04/14/18 06:21 Globulin 3.2 gm/dL 04/14/18 06:21 Albumin/Globulin Ratio 1.3 (1.0-1.8) 04/14/18 06:21 Triglycerides 83 mg/dL (<150) 04/13/18 09:55 Cholesterol 143 mg/dL (<200) 04/13/18 09:55 LDL Cholesterol Direct 95 mg/dL (75-193) 04/13/18 09:55 HDL Cholesterol 40 mg/dL (23-92) 04/13/18 09:55 - Physical Exam Vitals and I&O: Vital Signs Temp 97.4 F 04/25/18 06:32 Pulse 74 04/25/18 08:00 Resp 20 04/25/18 08:00 BP 108/67 04/25/18 06:32 Pulse Ox 97 04/25/18 06:32 Intake & Output 04/24/18 04/25/18 04/25/18 18:59 06:59 18:59 Intake Total 600 120 Balance 600 120 Intake: Oral 600 120 Other: # Voids 3 3 # Bowel Movements 0 Active Medications: Current Medications Acetaminophen (Tylenol) 650 mg PO Q4HR PRN PRN Reason: Mild Pain / Temp above 100 Stop: 06/11/18 16:50 Al Hydrox/Mg Hydrox/Simethicone (Maalox) 30 ml PO Q4HR PRN PRN Reason: GI DISTRESS Stop: 06/11/18 16:50 Albuterol Sulfate (Albuterol 2.5mg/3ml Neb Ud) 2.5 mg HHN Q4H PRN PRN Reason: Shortness of Breath or Wheeze Stop: 06/11/18 16:37 Aspirin (Aspirin Chewable) 81 mg PO DAILY [facility] Stop: 06/12/18 08:59 Last Admin: 04/24/18 09:03 Dose: Not Given Bisacodyl (Dulcolax 10 Mg Supp) 10 mg RC DAILY PRN PRN Reason: Constipation Stop: 06/11/18 16:35 Digoxin (Lanoxin) 0.125 mg PO DAILY [facility] Stop: 06/12/18 08:59 Last Admin: 04/24/18 09:04 Dose: Not Given Divalproex Sodium (Depakote Dr) 125 mg PO Q12HR [facility]; Protocol Stop: 06/14/18 20:59 Last Admin: 04/24/18 21:38 Dose: 125 mg Docusate Sodium (Colace) 100 mg PO BID [facility] Stop: 06/11/18 16:59 Last Admin: 04/24/18 16:49 Dose: 100 mg Famotidine (Pepcid) 20 mg PO DAILY [facility] Stop: 06/12/18 08:59 Last Admin: 04/24/18 09:04 Dose: Not Given Gabapentin (Neurontin) 300 mg PO Q8HR [facility] Stop: 06/11/18 20:59 Last Admin: 04/25/18 05:27 Dose: 300 mg Lorazepam (Ativan) 1 mg PO Q8HR PRN; Protocol PRN Reason: Anxiety Stop: 06/11/18 16:26 Last Admin: 04/19/18 13:38 Dose: 1 mg Magnesium Hydroxide (Milk Of Magnesia) 30 ml PO HS PRN PRN Reason: Constipation Magnesium Oxide (Mag-Oxide) 400 mg PO BID [facility] Stop: 06/11/18 16:59 Last Admin: 04/24/18 16:48 Dose: 400 mg Metoprolol Tartrate (Lopressor) 25 mg PO Q12HR [facility] Stop: 06/11/18 20:59 Last Admin: 04/24/18 21:36 Dose: Not Given Multivitamins/Vitamin C (Theragran) 1 tab PO DAILY [facility] Stop: 06/12/18 08:59 Last Admin: 04/24/18 09:05 Dose: Not Given Paroxetine HCl (Paxil) 20 mg PO DAILY [facility]; Protocol Stop: 06/12/18 08:59 Last Admin: 04/24/18 09:05 Dose: Not Given Polyethylene Glycol (Miralax) 17 gm PO DAILY [facility] Stop: 06/12/18 08:59 Last Admin: 04/24/18 09:05 Dose: Not Given Pramipexole Dihydrochloride (Mirapex) 0.25 mg PO HS [facility]; Protocol Stop: 06/11/18 20:59 Last Admin: 04/24/18 21:38 Dose: 0.25 mg Quetiapine Fumarate (Seroquel) 100 mg PO HS [facility]; Protocol Stop: 06/12/18 20:59 Last Admin: 04/24/18 21:38 Dose: 100 mg Triamcinolone Acetonide (Kenalog 0.1%) 1 appl TP Q12HR PRN PRN Reason: Itching Stop: 06/11/18 20:59 Zolpidem Tartrate (Ambien) 5 mg PO HS PRN PRN Reason: Insomnia Stop: 06/11/18 16:50 Last Admin: 04/21/18 20:45 Dose: 5 mg General: Alert, Other (Confused) HEENT: Atraumatic Neck: Supple Cardiovascular: Regular rate Lungs: Clear to auscultation Abdomen: Bowel sounds, Soft Extremities: Other (No edema) Neurological: Other (Unstable gait) Skin: Other (Warm and dry) Psych/Mental Status: Other (Confused, not oriented) Assessment/Plan - Assessment Assessment: Patient is awake, alert, calm, in no acute distress. Dx: Increased in agitation , Psychosis, A-fib, HTN, CAD, CHF. - Plan Plan: Patient follow by Psychiatry, continue with SNF meds. will continue to monitor. Nutritional Asmnt/Malnutr-PDOC - Dietary Evaluation Malnutrition Findings (Please click <Entered> for more info): Nutritional Asmnt/Malnutrition Start: 04/16/18 14: 22 Text: Status: Complete Freq: Protocol: Document 04/16/18 14:22 CAMIL[place] (Rec: 04/16/18 14:31 CAMILLE [email or web address]) Nutritional Asmnt/Malnutrition Patient General Information Nutritional Screening Moderate Risk Diagnosis psychosis Pertinent Medical Hx/Surgical Hx a fib, CAD, CHF, HTN, dementia , schizophrenia, weakness Subjective Information Pt seen eating in dining room. Per EMR, PO intake 50-75% over the past two days, meeting 100% of nutritional needs. Current Diet Order/ Nutrition Support [facility] soft ground, honey thick liquid Pertinent Medications colace, pepcid, mag-oxide, theragran, miralax, seroquel Pertinent Labs 04/14 nutrition related labs WNL Nutritional Hx/Data Height 1.6 m Height (Calculated Centimeters) 160.0 Current Weight (lbs) 43.091 kg Weight (Calculated Kilograms) 43.1 Weight (Calculated Grams) 75130.3 [place] Body Weight 115 Body Mass Index (BMI) 16.8 Weight Status Underweight GI Symptoms GI Symptoms None Last BM 04/15 Difficult in: None Skin Integrity/Comment: skin intact, bruise Current %PO Fair (50-74%) Estimated Nutritional Goals BEE in Kcals: Using Current wt Calories/Kcals/Kg 30-35 Kcals Calculated 2803-7348 Protein: Using Current wt Protein g/k.2-1.4 Protein Calculated 52-60 Fluid: ml 1290-1505ml (1ml/kcal) Nutritional Problem No current Nutrition Prob Problem N/A Intervention/Recommendation Comments 1. Continue with [facility] soft ground diet as ordered. 2. Monitor PO intake, wt, labs and skin integrity 3. F/U as low risk in 7 days, 04/23 Expected Outcomes/Goals Expected Outcomes/Goals 1. PO intake to meet at least 75% of nutritional needs. 2. Wt stability, skin to remain intact, labs to approach WNL.
[2018-04-25] MEDS: Multivitamin Tab PO SCH (09:04)
[2018-04-25] MEDS: Aspirin 81mg Chewable Tab PO SCH (09:04)
[2018-04-25] MEDS: POLYETHYLENE GLYCOL 3350 17 GM PACK PO SCH (09:06)
--- NOTE | 2018-04-26 02:39 | Progress Notes ---
DATE: 04/25/2018 SUBJECTIVE: Staff was spoken to. The patient is interviewed. Mood is noted to be irritable. Affect is constricted. Insight and judgment are noted to be still impaired. Impulse control is noted to be limited. Coping skills are noted to be limited. The patient has been having difficult time to cope with the stress. No side effects to the medications are noted. The patient has been able to participate in the groups a little bit compared to before. Sleep and appetite are noted to be improving. No side effects of medications are noted at this time. ASSESSMENT: The patient is still irritable and aggressive behavior seems to be coming under control. PLAN: To continue the patient with the current medications and followup. The patient is currently on Depakote, Seroquel, and Paxil and is able to tolerate the medication. JOB# [id number]
--- NOTE | 2018-04-26 08:58 | General Progress Note ---
Subjective - Review of Systems Service Date: 04/26/18 Subjective: Patient is confused. Objective - Results Result Diagrams: 04/14/18 06:21 04/14/18 06:21 Recent Labs: Laboratory Last Values WBC 5.7 Th/cmm (4.8-10.8) 04/14/18 06:21 RBC 4.47 Mil/cmm (3.80-5.20) 04/14/18 06:21 Hgb 14.2 gm/dL (12-16) 04/14/18 06:21 Hct 42.4 % (41.0-60) 04/14/18 06:21 MCV 94.7 fl (81-100) 04/14/18 06:21 MCH 31.7 pg (27.0-31.0) H 04/14/18 06:21 MCHC Differential 33.5 pg (28.0-36.0) 04/14/18 06:21 RDW 13.5 % (11.5-20.0) 04/14/18 06:21 Plt Count 313 Th/cmm (150-400) 04/14/18 06:21 MPV 7.8 fl 04/14/18 06:21 Neutrophils % 67.5 % (40.0-80.0) 04/14/18 06:21 Lymphocytes % 22.5 % (20.0-50.0) 04/14/18 06:21 Monocytes % 7.6 % (2.0-10.0) 04/14/18 06:21 Eosinophils % 2.2 % (0.0-5.0) 04/14/18 06:21 Basophils % 0.2 % (0.0-2.0) 04/14/18 06:21 Sodium 138 mEq/L (136-145) 04/14/18 06:21 Potassium 4.4 mEq/L (3.5-5.1) 04/14/18 06:21 Chloride 104 mEq/L (98-107) 04/14/18 06:21 Carbon Dioxide 25.8 mEq/L (21.0-31.0) 04/14/18 06:21 Anion Gap 12.6 (7.0-16.0) 04/14/18 06:21 BUN 20 mg/dL (7-25) 04/14/18 06:21 Creatinine 0.9 mg/dL (0.6-1.2) 04/14/18 06:21 Est GFR ( Amer) > 60.0 ml/min (>90) 04/14/18 06:21 Est GFR (Non-Af Amer) > 60.0 ml/min 04/14/18 06:21 BUN/Creatinine Ratio 22.2 04/14/18 06:21 Glucose 95 mg/dL (70-105) 04/14/18 06:21 POC Glucose 66 MG/DL (70 - 105) L 04/12/18 17:37 Hemoglobin A1c % 5.3 % (4.0-6.0) 04/12/18 17:26 Calcium 9.8 mg/dL (8.6-10.3) 04/14/18 06:21 Total Bilirubin 0.9 mg/dL (0.3-1.0) 04/14/18 06:21 AST 32 U/L (13-39) 04/14/18 06:21 ALT 18 U/L (7-52) 04/14/18 06:21 Alkaline Phosphatase 104 U/L (34-104) 04/14/18 06:21 Total Protein 7.2 gm/dL (6.0-8.3) 04/14/18 06:21 Albumin 4.0 gm/dL (3.7-5.3) 04/14/18 06:21 Globulin 3.2 gm/dL 04/14/18 06:21 Albumin/Globulin Ratio 1.3 (1.0-1.8) 04/14/18 06:21 Triglycerides 83 mg/dL (<150) 04/13/18 09:55 Cholesterol 143 mg/dL (<200) 04/13/18 09:55 LDL Cholesterol Direct 95 mg/dL (75-193) 04/13/18 09:55 HDL Cholesterol 40 mg/dL (23-92) 04/13/18 09:55 - Physical Exam Vitals and I&O: Vital Signs Temp 97.4 F 04/25/18 06:32 Pulse 60 04/26/18 06:57 Resp 18 04/26/18 06:57 BP 100/60 04/25/18 20:41 Pulse Ox 95 04/26/18 06:57 Intake & Output 09/05/18 09/06/18 09/06/18 18:59 06:59 18:59 Intake Total 700 Output Total 4 Balance 696 Intake: Oral 700 Output: Urine 3 Stool 1 Active Medications: Current Medications Acetaminophen (Tylenol) 650 mg PO Q4HR PRN PRN Reason: Mild Pain / Temp above 100 Stop: 06/11/18 16:50 Al Hydrox/Mg Hydrox/Simethicone (Maalox) 30 ml PO Q4HR PRN PRN Reason: GI DISTRESS Stop: 06/11/18 16:50 Albuterol Sulfate (Albuterol 2.5mg/3ml Neb Ud) 2.5 mg HHN Q4H PRN PRN Reason: Shortness of Breath or Wheeze Stop: 06/11/18 16:37 Aspirin (Aspirin Chewable) 81 mg PO DAILY [facility] Stop: 06/12/18 08:59 Last Admin: 04/25/18 09:04 Dose: 81 mg Bisacodyl (Dulcolax 10 Mg Supp) 10 mg RC DAILY PRN PRN Reason: Constipation Stop: 06/11/18 16:35 Digoxin (Lanoxin) 0.125 mg PO DAILY [facility] Stop: 06/12/18 08:59 Last Admin: 04/25/18 09:06 Dose: Not Given Divalproex Sodium (Depakote Dr) 125 mg PO Q12HR [facility]; Protocol Stop: 06/14/18 20:59 Last Admin: 04/25/18 20:41 Dose: 125 mg Docusate Sodium (Colace) 100 mg PO BID [facility] Stop: 06/11/18 16:59 Last Admin: 04/25/18 17:01 Dose: Not Given Famotidine (Pepcid) 20 mg PO DAILY [facility] Stop: 06/12/18 08:59 Last Admin: 04/25/18 09:04 Dose: 20 mg Gabapentin (Neurontin) 300 mg PO Q8HR [facility] Stop: 06/11/18 20:59 Last Admin: 04/26/18 05:25 Dose: Not Given Lorazepam (Ativan) 1 mg PO Q8HR PRN; Protocol PRN Reason: Anxiety Stop: 06/11/18 16:26 Last Admin: 04/25/18 20:41 Dose: 1 mg Magnesium Hydroxide (Milk Of Magnesia) 30 ml PO HS PRN PRN Reason: Constipation Magnesium Oxide (Mag-Oxide) 400 mg PO BID [facility] Stop: 06/11/18 16:59 Last Admin: 04/25/18 17:01 Dose: Not Given Metoprolol Tartrate (Lopressor) 25 mg PO Q12HR [facility] Stop: 06/11/18 20:59 Last Admin: 04/25/18 20:41 Dose: 25 mg Multivitamins/Vitamin C (Theragran) 1 tab PO DAILY [facility] Stop: 06/12/18 08:59 Last Admin: 04/25/18 09:04 Dose: 1 tab Paroxetine HCl (Paxil) 20 mg PO DAILY [facility]; Protocol Stop: 06/12/18 08:59 Last Admin: 04/25/18 09:04 Dose: 20 mg Polyethylene Glycol (Miralax) 17 gm PO DAILY [facility] Stop: 06/12/18 08:59 Last Admin: 04/25/18 09:06 Dose: 17 gm Pramipexole Dihydrochloride (Mirapex) 0.25 mg PO HS [facility]; Protocol Stop: 06/11/18 20:59 Last Admin: 04/25/18 20:41 Dose: 0.25 mg Quetiapine Fumarate (Seroquel) 100 mg PO HS [facility]; Protocol Stop: 06/12/18 20:59 Last Admin: 04/25/18 20:41 Dose: 100 mg Triamcinolone Acetonide (Kenalog 0.1%) 1 appl TP Q12HR PRN PRN Reason: Itching Stop: 06/11/18 20:59 Zolpidem Tartrate (Ambien) 5 mg PO HS PRN PRN Reason: Insomnia Stop: 06/11/18 16:50 Last Admin: 04/25/18 20:41 Dose: 5 mg General: Alert, Other (Confused) HEENT: Atraumatic Neck: Supple Cardiovascular: Regular rate Lungs: Clear to auscultation Abdomen: Bowel sounds, Soft Extremities: Other (No edema) Neurological: Other (Unstable gait) Skin: Other (Warm and dry) Psych/Mental Status: Other (Confused, not oriented) Assessment/Plan - Assessment Assessment: Patient is sleeping but arousable. Dx: Increased in agitation, Psychosis, A-fib , HTN, CAD, CHF. - Plan Plan: Patient follow by Psychiatry, will request labs, will continue to monitor. Nutritional Asmnt/Malnutr-PDOC - Dietary Evaluation Malnutrition Findings (Please click <Entered> for more info): Nutritional Asmnt/Malnutrition Start: 04/16/18 14: 22 Text: Status: Complete Freq: Protocol: Document 04/16/18 14:22 GABRIELLELISA (Rec: 04/16/18 14:31 GABRIELLELISA [email or web address]) Nutritional Asmnt/Malnutrition Patient General Information Nutritional Screening Moderate Risk Diagnosis psychosis Pertinent Medical Hx/Surgical Hx a fib, CAD, CHF, HTN, dementia , schizophrenia, weakness Subjective Information Pt seen eating in dining room. Per EMR, PO intake 50-75% over the past two days, meeting 100% of nutritional needs. Current Diet Order/ Nutrition Support [facility] soft ground, honey thick liquid Pertinent Medications colace, pepcid, mag-oxide, theragran, miralax, seroquel Pertinent Labs 04/14 nutrition related labs WNL Nutritional Hx/Data Height 1.6 m Height (Calculated Centimeters) 160.0 Current Weight (lbs) 43.091 kg Weight (Calculated Kilograms) 43.1 Weight (Calculated Grams) 39981.3 [place] Body Weight 115 Body Mass Index (BMI) 16.8 Weight Status Underweight GI Symptoms GI Symptoms None Last BM 04/15 Difficult in: None Skin Integrity/Comment: skin intact, bruise Current %PO Fair (50-74%) Estimated Nutritional Goals BEE in Kcals: Using Current wt Calories/Kcals/Kg 30-35 Kcals Calculated 0652-0170 Protein: Using Current wt Protein g/k.2-1.4 Protein Calculated 52-60 Fluid: ml 1290-1505ml (1ml/kcal) Nutritional Problem No current Nutrition Prob Problem N/A Intervention/Recommendation Comments 1. Continue with [facility] soft ground diet as ordered. 2. Monitor PO intake, wt, labs and skin integrity 3. F/U as low risk in 7 days, 04/23 Expected Outcomes/Goals Expected Outcomes/Goals 1. PO intake to meet at least 75% of nutritional needs. 2. Wt stability, skin to remain intact, labs to approach WNL.
[2018-04-26] MEDS: Aspirin 81mg Chewable Tab PO SCH (10:14)
[2018-04-26] MEDS: POLYETHYLENE GLYCOL 3350 17 GM PACK PO SCH (10:30)
[2018-04-26] MEDS: Multivitamin Tab PO SCH (10:30)
--- NOTE | 2018-04-26 13:31 | Progress Notes ---
DATE: 04/26/2018 SUBJECTIVE: Staff was spoken to. The patient is interviewed. Mood is noted to be irritable. Affect is constricted. Coping skills are noted to be still poor. Insight and judgment are also noted to be impaired. No side effects to the medications are noted, but the aggressive behavior has been decreasing and the patient has been able to verbalize the concerns. The case investigator has been requested to look for possible discharge of the patient tomorrow. JOB# [id number]
--- NOTE | 2018-04-27 08:29 | General Progress Note ---
Subjective - Review of Systems Service Date: 04/27/18 Subjective: Patient is confused. Objective - Results Result Diagrams: 04/14/18 06:21 04/14/18 06:21 Recent Labs: Laboratory Last Values WBC 5.7 Th/cmm (4.8-10.8) 04/14/18 06:21 RBC 4.47 Mil/cmm (3.80-5.20) 04/14/18 06:21 Hgb 14.2 gm/dL (12-16) 04/14/18 06:21 Hct 42.4 % (41.0-60) 04/14/18 06:21 MCV 94.7 fl (81-100) 04/14/18 06:21 MCH 31.7 pg (27.0-31.0) H 04/14/18 06:21 MCHC Differential 33.5 pg (28.0-36.0) 04/14/18 06:21 RDW 13.5 % (11.5-20.0) 04/14/18 06:21 Plt Count 313 Th/cmm (150-400) 04/14/18 06:21 MPV 7.8 fl 04/14/18 06:21 Neutrophils % 67.5 % (40.0-80.0) 04/14/18 06:21 Lymphocytes % 22.5 % (20.0-50.0) 04/14/18 06:21 Monocytes % 7.6 % (2.0-10.0) 04/14/18 06:21 Eosinophils % 2.2 % (0.0-5.0) 04/14/18 06:21 Basophils % 0.2 % (0.0-2.0) 04/14/18 06:21 Sodium 138 mEq/L (136-145) 04/14/18 06:21 Potassium 4.4 mEq/L (3.5-5.1) 04/14/18 06:21 Chloride 104 mEq/L (98-107) 04/14/18 06:21 Carbon Dioxide 25.8 mEq/L (21.0-31.0) 04/14/18 06:21 Anion Gap 12.6 (7.0-16.0) 04/14/18 06:21 BUN 20 mg/dL (7-25) 04/14/18 06:21 Creatinine 0.9 mg/dL (0.6-1.2) 04/14/18 06:21 Est GFR ( Amer) > 60.0 ml/min (>90) 04/14/18 06:21 Est GFR (Non-Af Amer) > 60.0 ml/min 04/14/18 06:21 BUN/Creatinine Ratio 22.2 04/14/18 06:21 Glucose 95 mg/dL (70-105) 04/14/18 06:21 POC Glucose 66 MG/DL (70 - 105) L 04/12/18 17:37 Hemoglobin A1c % 5.3 % (4.0-6.0) 04/12/18 17:26 Calcium 9.8 mg/dL (8.6-10.3) 04/14/18 06:21 Total Bilirubin 0.9 mg/dL (0.3-1.0) 04/14/18 06:21 AST 32 U/L (13-39) 04/14/18 06:21 ALT 18 U/L (7-52) 04/14/18 06:21 Alkaline Phosphatase 104 U/L (34-104) 04/14/18 06:21 Total Protein 7.2 gm/dL (6.0-8.3) 04/14/18 06:21 Albumin 4.0 gm/dL (3.7-5.3) 04/14/18 06:21 Globulin 3.2 gm/dL 04/14/18 06:21 Albumin/Globulin Ratio 1.3 (1.0-1.8) 04/14/18 06:21 Triglycerides 83 mg/dL (<150) 04/13/18 09:55 Cholesterol 143 mg/dL (<200) 04/13/18 09:55 LDL Cholesterol Direct 95 mg/dL (75-193) 04/13/18 09:55 HDL Cholesterol 40 mg/dL (23-92) 04/13/18 09:55 - Physical Exam Vitals and I&O: Vital Signs Temp 97.8 F 04/27/18 06:58 Pulse 103 04/27/18 08:17 Resp 18 04/27/18 08:17 BP 116/64 04/27/18 06:58 Pulse Ox 97 04/27/18 08:17 Intake & Output 04/26/18 04/27/18 04/27/18 18:59 06:59 18:59 Intake Total 1200 360 Balance 1200 360 Intake: Oral 1200 360 Other: # Voids 1 # Bowel Movements 1 Active Medications: Current Medications Acetaminophen (Tylenol) 650 mg PO Q4HR PRN PRN Reason: Mild Pain / Temp above 100 Stop: 06/11/18 16:50 Al Hydrox/Mg Hydrox/Simethicone (Maalox) 30 ml PO Q4HR PRN PRN Reason: GI DISTRESS Stop: 06/11/18 16:50 Albuterol Sulfate (Albuterol 2.5mg/3ml Neb Ud) 2.5 mg HHN Q4H PRN PRN Reason: Shortness of Breath or Wheeze Stop: 06/11/18 16:37 Aspirin (Aspirin Chewable) 81 mg PO DAILY [facility] Stop: 06/12/18 08:59 Last Admin: 04/26/18 10:14 Dose: 81 mg Bisacodyl (Dulcolax 10 Mg Supp) 10 mg RC DAILY PRN PRN Reason: Constipation Stop: 06/11/18 16:35 Digoxin (Lanoxin) 0.125 mg PO DAILY [facility] Stop: 06/12/18 08:59 Last Admin: 04/26/18 10:28 Dose: 0.125 mg Divalproex Sodium (Depakote Dr) 125 mg PO Q12HR [facility]; Protocol Stop: 06/14/18 20:59 Last Admin: 04/26/18 21:00 Dose: 125 mg Docusate Sodium (Colace) 100 mg PO BID [facility] Stop: 06/11/18 16:59 Last Admin: 04/26/18 10:29 Dose: 100 mg Famotidine (Pepcid) 20 mg PO DAILY [facility] Stop: 06/12/18 08:59 Last Admin: 04/26/18 10:29 Dose: 20 mg Gabapentin (Neurontin) 300 mg PO Q8HR [facility] Stop: 06/11/18 20:59 Last Admin: 04/27/18 05:31 Dose: 300 mg Lorazepam (Ativan) 1 mg PO Q8HR PRN; Protocol PRN Reason: Anxiety Stop: 06/11/18 16:26 Last Admin: 04/26/18 16:57 Dose: 1 mg Magnesium Hydroxide (Milk Of Magnesia) 30 ml PO HS PRN PRN Reason: Constipation Magnesium Oxide (Mag-Oxide) 400 mg PO BID [facility] Stop: 06/11/18 16:59 Last Admin: 04/26/18 10:29 Dose: 400 mg Metoprolol Tartrate (Lopressor) 25 mg PO Q12HR [facility] Stop: 06/11/18 20:59 Last Admin: 04/26/18 20:58 Dose: 25 mg Multivitamins/Vitamin C (Theragran) 1 tab PO DAILY [facility] Stop: 06/12/18 08:59 Last Admin: 04/26/18 10:30 Dose: 1 tab Paroxetine HCl (Paxil) 20 mg PO DAILY [facility]; Protocol Stop: 06/12/18 08:59 Last Admin: 04/26/18 10:30 Dose: 20 mg Polyethylene Glycol (Miralax) 17 gm PO DAILY [facility] Stop: 06/12/18 08:59 Last Admin: 04/26/18 10:30 Dose: 17 gm Pramipexole Dihydrochloride (Mirapex) 0.25 mg PO HS [facility]; Protocol Stop: 06/11/18 20:59 Last Admin: 04/26/18 20:59 Dose: 0.25 mg Quetiapine Fumarate (Seroquel) 100 mg PO HS [facility]; Protocol Stop: 06/12/18 20:59 Last Admin: 04/26/18 21:00 Dose: 100 mg Triamcinolone Acetonide (Kenalog 0.1%) 1 appl TP Q12HR PRN PRN Reason: Itching Stop: 06/11/18 20:59 Zolpidem Tartrate (Ambien) 5 mg PO HS PRN PRN Reason: Insomnia Stop: 06/11/18 16:50 Last Admin: 04/25/18 20:41 Dose: 5 mg General: Alert, Other (Confused) HEENT: Atraumatic Neck: Supple Cardiovascular: Regular rate Lungs: Clear to auscultation Abdomen: Bowel sounds, Soft Extremities: Other (No edema) Neurological: Other (Unstable gait) Skin: Other (Warm and dry) Psych/Mental Status: Other (Confused, not oriented) Assessment/Plan - Assessment Assessment: Patient is sleeping but arousable. Dx: Increased in agitation, Psychosis, A-fib , HTN, CAD, CHF. - Plan Plan: Patient follow by Psychiatry, will continue to monitor. Nutritional Asmnt/Malnutr-PDOC - Dietary Evaluation Malnutrition Findings (Please click <Entered> for more info): Nutritional Asmnt/Malnutrition Start: 04/16/18 14: 22 Text: Status: Complete Freq: Protocol: Document 04/16/18 14:22 GABRIELLELISA (Rec: 04/16/18 14:31 GABRIELLELISA [email or web address]) Nutritional Asmnt/Malnutrition Patient General Information Nutritional Screening Moderate Risk Diagnosis psychosis Pertinent Medical Hx/Surgical Hx a fib, CAD, CHF, HTN, dementia , schizophrenia, weakness Subjective Information Pt seen eating in dining room. Per EMR, PO intake 50-75% over the past two days, meeting 100% of nutritional needs. Current Diet Order/ Nutrition Support [facility] soft ground, honey thick liquid Pertinent Medications colace, pepcid, mag-oxide, theragran, miralax, seroquel Pertinent Labs 04/14 nutrition related labs WNL Nutritional Hx/Data Height 1.6 m Height (Calculated Centimeters) 160.0 Current Weight (lbs) 43.091 kg Weight (Calculated Kilograms) 43.1 Weight (Calculated Grams) 29978.3 [place] Body Weight 115 Body Mass Index (BMI) 16.8 Weight Status Underweight GI Symptoms GI Symptoms None Last BM 04/15 Difficult in: None Skin Integrity/Comment: skin intact, bruise Current %PO Fair (50-74%) Estimated Nutritional Goals BEE in Kcals: Using Current wt Calories/Kcals/Kg 30-35 Kcals Calculated 6361-7207 Protein: Using Current wt Protein g/k.2-1.4 Protein Calculated 52-60 Fluid: ml 1290-1505ml (1ml/kcal) Nutritional Problem No current Nutrition Prob Problem N/A Intervention/Recommendation Comments 1. Continue with [facility] soft ground diet as ordered. 2. Monitor PO intake, wt, labs and skin integrity 3. F/U as low risk in 7 days, 04/23 Expected Outcomes/Goals Expected Outcomes/Goals 1. PO intake to meet at least 75% of nutritional needs. 2. Wt stability, skin to remain intact, labs to approach WNL.
[2018-04-27] MEDS: Multivitamin Tab PO SCH (09:18)
[2018-04-27] MEDS: Aspirin 81mg Chewable Tab PO SCH (09:20)
[2018-04-27] MEDS: POLYETHYLENE GLYCOL 3350 17 GM PACK PO SCH (09:21)
--- NOTE | 2018-04-28 02:02 | Progress Notes ---
DATE: 04/27/2018 PSYCHIATRIC PROGRESS NOTE SUBJECTIVE: Staff was spoken to. The patient is interviewed. Mood is noted to be irritable. Affect is constricted. The patient is reported to have been screaming and yelling and could not be contained and the patient has to be given a dose of Ativan on a p.r.n. basis. The patient at this time is noted to be very drowsy and is sedated and the rehabilitation caseworker is reporting that the [facility] where the patient has been staying before does not want to take the patient back and they have been trying to look for placement for this patient. The patient at this time is going to be closely monitored with the medications and provided with supportive therapy. ASSESSMENT: The patient's family also is stating that they do not want the patient back at [facility] and we are going to be working with the family where they want the patient to be transferred to. JOB# [id number]
[2018-04-28] MEDS: Multivitamin Tab PO SCH (09:00)
[2018-04-28] MEDS: POLYETHYLENE GLYCOL 3350 17 GM PACK PO SCH (09:00)
[2018-04-28] MEDS: Aspirin 81mg Chewable Tab PO SCH (09:00)
[2018-04-28] MEDS ORDERED: Albuterol/Ipratropium Neb 3 ML AERS HHN PRN (11:28)
--- NOTE | 2018-04-28 11:45 | General Progress Note ---
Subjective - Review of Systems Service Date: 04/28/18 Subjective: Patient is confused. Objective - Results Result Diagrams: 04/14/18 06:21 04/14/18 06:21 Recent Labs: Laboratory Last Values WBC 5.7 Th/cmm (4.8-10.8) 04/14/18 06:21 RBC 4.47 Mil/cmm (3.80-5.20) 04/14/18 06:21 Hgb 14.2 gm/dL (12-16) 04/14/18 06:21 Hct 42.4 % (41.0-60) 04/14/18 06:21 MCV 94.7 fl (81-100) 04/14/18 06:21 MCH 31.7 pg (27.0-31.0) H 04/14/18 06:21 MCHC Differential 33.5 pg (28.0-36.0) 04/14/18 06:21 RDW 13.5 % (11.5-20.0) 04/14/18 06:21 Plt Count 313 Th/cmm (150-400) 04/14/18 06:21 MPV 7.8 fl 04/14/18 06:21 Neutrophils % 67.5 % (40.0-80.0) 04/14/18 06:21 Lymphocytes % 22.5 % (20.0-50.0) 04/14/18 06:21 Monocytes % 7.6 % (2.0-10.0) 04/14/18 06:21 Eosinophils % 2.2 % (0.0-5.0) 04/14/18 06:21 Basophils % 0.2 % (0.0-2.0) 04/14/18 06:21 Sodium 138 mEq/L (136-145) 04/14/18 06:21 Potassium 4.4 mEq/L (3.5-5.1) 04/14/18 06:21 Chloride 104 mEq/L (98-107) 04/14/18 06:21 Carbon Dioxide 25.8 mEq/L (21.0-31.0) 04/14/18 06:21 Anion Gap 12.6 (7.0-16.0) 04/14/18 06:21 BUN 20 mg/dL (7-25) 04/14/18 06:21 Creatinine 0.9 mg/dL (0.6-1.2) 04/14/18 06:21 Est GFR ( Amer) > 60.0 ml/min (>90) 04/14/18 06:21 Est GFR (Non-Af Amer) > 60.0 ml/min 04/14/18 06:21 BUN/Creatinine Ratio 22.2 04/14/18 06:21 Glucose 95 mg/dL (70-105) 04/14/18 06:21 POC Glucose 66 MG/DL (70 - 105) L 04/12/18 17:37 Hemoglobin A1c % 5.3 % (4.0-6.0) 04/12/18 17:26 Calcium 9.8 mg/dL (8.6-10.3) 04/14/18 06:21 Total Bilirubin 0.9 mg/dL (0.3-1.0) 04/14/18 06:21 AST 32 U/L (13-39) 04/14/18 06:21 ALT 18 U/L (7-52) 04/14/18 06:21 Alkaline Phosphatase 104 U/L (34-104) 04/14/18 06:21 Total Protein 7.2 gm/dL (6.0-8.3) 04/14/18 06:21 Albumin 4.0 gm/dL (3.7-5.3) 04/14/18 06:21 Globulin 3.2 gm/dL 04/14/18 06:21 Albumin/Globulin Ratio 1.3 (1.0-1.8) 04/14/18 06:21 Triglycerides 83 mg/dL (<150) 04/13/18 09:55 Cholesterol 143 mg/dL (<200) 04/13/18 09:55 LDL Cholesterol Direct 95 mg/dL (75-193) 04/13/18 09:55 HDL Cholesterol 40 mg/dL (23-92) 04/13/18 09:55 - Physical Exam Vitals and I&O: Vital Signs Temp 97.6 F 04/28/18 06:21 Pulse 111 04/28/18 08:51 Resp 18 04/28/18 08:51 BP 109/54 04/28/18 06:21 Pulse Ox 94 04/28/18 08:51 Intake & Output 04/27/18 04/28/18 04/28/18 18:59 06:59 18:59 Intake Total 1200 Balance 1200 Intake: Oral 1200 Other: # Voids 3 # Bowel Movements 1 0 Active Medications: Current Medications Acetaminophen (Tylenol) 650 mg PO Q4HR PRN PRN Reason: Mild Pain / Temp above 100 Stop: 06/11/18 16:50 Al Hydrox/Mg Hydrox/Simethicone (Maalox) 30 ml PO Q4HR PRN PRN Reason: GI DISTRESS Stop: 06/11/18 16:50 Albuterol/Ipratropium (Duoneb Neb) 3 ml HHN Q6HRT [facility] Stop: 06/27/18 12:59 Albuterol/Ipratropium (Duoneb Neb) 3 ml HHN Q2HRT PRN PRN Reason: Wheezing Stop: 06/27/18 11:27 Aspirin (Aspirin Chewable) 81 mg PO DAILY [facility] Stop: 06/12/18 08:59 Last Admin: 04/27/18 09:20 Dose: 81 mg Bisacodyl (Dulcolax 10 Mg Supp) 10 mg RC DAILY PRN PRN Reason: Constipation Stop: 06/11/18 16:35 Digoxin (Lanoxin) 0.125 mg PO DAILY [facility] Stop: 06/12/18 08:59 Last Admin: 04/27/18 09:18 Dose: 0.125 mg Divalproex Sodium (Depakote Dr) 125 mg PO Q12HR [facility]; Protocol Stop: 06/14/18 20:59 Last Admin: 04/27/18 21:12 Dose: 125 mg Docusate Sodium (Colace) 100 mg PO BID [facility] Stop: 06/11/18 16:59 Last Admin: 04/27/18 16:23 Dose: 100 mg Famotidine (Pepcid) 20 mg PO DAILY [facility] Stop: 06/12/18 08:59 Last Admin: 04/27/18 09:20 Dose: 20 mg Gabapentin (Neurontin) 300 mg PO Q8HR [facility] Stop: 06/11/18 20:59 Last Admin: 04/28/18 05:50 Dose: 300 mg Lorazepam (Ativan) 0.5 mg PO Q8HR PRN; Protocol PRN Reason: Anxiety Stop: 06/11/18 16:26 Magnesium Hydroxide (Milk Of Magnesia) 30 ml PO HS PRN PRN Reason: Constipation Magnesium Oxide (Mag-Oxide) 400 mg PO BID [facility] Stop: 06/11/18 16:59 Last Admin: 04/27/18 16:23 Dose: 400 mg Metoprolol Tartrate (Lopressor) 25 mg PO Q12HR [facility] Stop: 06/11/18 20:59 Last Admin: 04/27/18 21:13 Dose: Not Given Multivitamins/Vitamin C (Theragran) 1 tab PO DAILY [facility] Stop: 06/12/18 08:59 Last Admin: 04/27/18 09:18 Dose: 1 tab Paroxetine HCl (Paxil) 10 mg PO DAILY [facility]; Protocol Stop: 06/27/18 08:59 Polyethylene Glycol (Miralax) 17 gm PO DAILY [facility] Stop: 06/12/18 08:59 Last Admin: 04/27/18 09:21 Dose: 17 gm Pramipexole Dihydrochloride (Mirapex) 0.25 mg PO HS [facility]; Protocol Stop: 06/11/18 20:59 Last Admin: 04/27/18 21:14 Dose: 0.25 mg Quetiapine Fumarate (Seroquel) 100 mg PO HS [facility]; Protocol Stop: 06/12/18 20:59 Last Admin: 04/27/18 21:15 Dose: 100 mg Triamcinolone Acetonide (Kenalog 0.1%) 1 appl TP Q12HR PRN PRN Reason: Itching Stop: 06/11/18 20:59 Zolpidem Tartrate (Ambien) 5 mg PO HS PRN PRN Reason: Insomnia Stop: 06/11/18 16:50 Last Admin: 04/25/18 20:41 Dose: 5 mg General: Alert, Other (Confused) HEENT: Atraumatic Neck: Supple Cardiovascular: Regular rate Lungs: Other (Rude respiration) Abdomen: Bowel sounds, Soft Extremities: Other (No edema) Neurological: Other (Unstable gait) Skin: Other (Warm and dry) Psych/Mental Status: Other (Confused, not oriented) Assessment/Plan - Assessment Assessment: Per nurse report since last aguiar patient has having some O2 desaturation, Now is improving,. Dx: Increased in agitation, Psychosis, A-fib, HTN, CAD, CHF, COPD. - Plan Plan: Patient follow by Psychiatry, On nasal O2 and albuterol/ Ipratropium breathing treatment. CXR and EKG are ordered. will continue to monitor. Nutritional Asmnt/Malnutr-PDOC - Dietary Evaluation Malnutrition Findings (Please click <Entered> for more info): Nutritional Asmnt/Malnutrition Start: 04/16/18 14: 22 Text: Status: Complete Freq: Protocol: Document 04/16/18 14:22 [place] (Rec: 04/16/18 14:31 [email or web address]) Nutritional Asmnt/Malnutrition Patient General Information Nutritional Screening Moderate Risk Diagnosis psychosis Pertinent Medical Hx/Surgical Hx a fib, CAD, CHF, HTN, dementia , schizophrenia, weakness Subjective Information Pt seen eating in dining room. Per EMR, PO intake 50-75% over the past two days, meeting 100% of nutritional needs. Current Diet Order/ Nutrition Support [facility] soft ground, honey thick liquid Pertinent Medications colace, pepcid, mag-oxide, theragran, miralax, seroquel Pertinent Labs 04/14 nutrition related labs WNL Nutritional Hx/Data Height 1.6 m Height (Calculated Centimeters) 160.0 Current Weight (lbs) 43.091 kg Weight (Calculated Kilograms) 43.1 Weight (Calculated Grams) 12140.3 [place] Body Weight 115 Body Mass Index (BMI) 16.8 Weight Status Underweight GI Symptoms GI Symptoms None Last BM 04/15 Difficult in: None Skin Integrity/Comment: skin intact, bruise Current %PO Fair (50-74%) Estimated Nutritional Goals BEE in Kcals: Using Current wt Calories/Kcals/Kg 30-35 Kcals Calculated 5670-8665 Protein: Using Current wt Protein g/k.2-1.4 Protein Calculated 52-60 Fluid: ml 1290-1505ml (1ml/kcal) Nutritional Problem No current Nutrition Prob Problem N/A Intervention/Recommendation Comments 1. Continue with [facility] soft ground diet as ordered. 2. Monitor PO intake, wt, labs and skin integrity 3. F/U as low risk in 7 days, 04/23 Expected Outcomes/Goals Expected Outcomes/Goals 1. PO intake to meet at least 75% of nutritional needs. 2. Wt stability, skin to remain intact, labs to approach WNL.
[2018-04-28] MEDS: Albuterol/Ipratropium Neb 3 ML AERS HHN SCH ×2 (12:21→19:41)
[2018-04-28] MEDS ORDERED: Albuterol/Ipratropium Neb 3 ML AERS HHN SCH (13:00)
--- NOTE | 2018-04-28 22:42 | Progress Notes ---
DATE: 04/28/2018 SUBJECTIVE: Staff was spoken to. The patient is interviewed. Mood is noted to be anxious. The patient has been having difficult time with the sleep last night and the patient is reported to have been having shortness of breath and the patient has been referred to Dr. Nixon who advised the patient to go for a chest x-ray and the patient has been started with her breathing treatment and albuterol inhaler has been reinstituted. The patient at this time has been having difficult time to cope with the stress. In view of this one, it is decided to closely monitor the patient and continue the patient with the supportive therapy and her Seroquel is going to be changed to 25 mg tonight until the patient has been able to come out of these medical issues and once the patient's medical issues have been resolved. The patient's Seroquel is going to be gradually increased since the patient has been having the problem with the breathing have been making these changes. JOB# [id number]
[2018-04-29] MEDS: Albuterol/Ipratropium Neb 3 ML AERS HHN SCH ×3 (06:29→19:53)
--- NOTE | 2018-04-29 09:19 | Diagnostic Imaging Report ---
CHEST X-RAY: AP view INDICATION: Desaturation COMPARISON: Chest x-ray 04/13/2018 FINDINGS: Right sided pacemaker is stable. Increased bibasal linear markings are noted. Faint right basal nodularity is also noted. No pleural effusions. Heart size normal. Atherosclerosis is noted. IMPRESSION: Chronic lung changes with increased right basal lung markings favoring atelectasis, however, pneumonia of the left lung base cannot be excluded. Faint right basal nodularity. This may be due to scarring or superimposition of bronchovascular tissues. A small pulmonary nodule cannot be completely excluded. CT of the chest with further clarify.
[2018-04-29] MEDS: POLYETHYLENE GLYCOL 3350 17 GM PACK PO SCH (09:51)
[2018-04-29] MEDS: Aspirin 81mg Chewable Tab PO SCH (09:52)
[2018-04-29] MEDS: Multivitamin Tab PO SCH (09:52)
--- NOTE | 2018-04-29 12:14 | General Progress Note ---
Subjective - Review of Systems Service Date: 04/29/18 Subjective: Patient is confused. Objective - Results Result Diagrams: 04/14/18 06:21 04/14/18 06:21 Recent Labs: Laboratory Last Values WBC 5.7 Th/cmm (4.8-10.8) 04/14/18 06:21 RBC 4.47 Mil/cmm (3.80-5.20) 04/14/18 06:21 Hgb 14.2 gm/dL (12-16) 04/14/18 06:21 Hct 42.4 % (41.0-60) 04/14/18 06:21 MCV 94.7 fl (81-100) 04/14/18 06:21 MCH 31.7 pg (27.0-31.0) H 04/14/18 06:21 MCHC Differential 33.5 pg (28.0-36.0) 04/14/18 06:21 RDW 13.5 % (11.5-20.0) 04/14/18 06:21 Plt Count 313 Th/cmm (150-400) 04/14/18 06:21 MPV 7.8 fl 04/14/18 06:21 Neutrophils % 67.5 % (40.0-80.0) 04/14/18 06:21 Lymphocytes % 22.5 % (20.0-50.0) 04/14/18 06:21 Monocytes % 7.6 % (2.0-10.0) 04/14/18 06:21 Eosinophils % 2.2 % (0.0-5.0) 04/14/18 06:21 Basophils % 0.2 % (0.0-2.0) 04/14/18 06:21 Sodium 138 mEq/L (136-145) 04/14/18 06:21 Potassium 4.4 mEq/L (3.5-5.1) 04/14/18 06:21 Chloride 104 mEq/L (98-107) 04/14/18 06:21 Carbon Dioxide 25.8 mEq/L (21.0-31.0) 04/14/18 06:21 Anion Gap 12.6 (7.0-16.0) 04/14/18 06:21 BUN 20 mg/dL (7-25) 04/14/18 06:21 Creatinine 0.9 mg/dL (0.6-1.2) 04/14/18 06:21 Est GFR ( Amer) > 60.0 ml/min (>90) 04/14/18 06:21 Est GFR (Non-Af Amer) > 60.0 ml/min 04/14/18 06:21 BUN/Creatinine Ratio 22.2 04/14/18 06:21 Glucose 95 mg/dL (70-105) 04/14/18 06:21 POC Glucose 66 MG/DL (70 - 105) L 04/12/18 17:37 Hemoglobin A1c % 5.3 % (4.0-6.0) 04/12/18 17:26 Calcium 9.8 mg/dL (8.6-10.3) 04/14/18 06:21 Total Bilirubin 0.9 mg/dL (0.3-1.0) 04/14/18 06:21 AST 32 U/L (13-39) 04/14/18 06:21 ALT 18 U/L (7-52) 04/14/18 06:21 Alkaline Phosphatase 104 U/L (34-104) 04/14/18 06:21 Total Protein 7.2 gm/dL (6.0-8.3) 04/14/18 06:21 Albumin 4.0 gm/dL (3.7-5.3) 04/14/18 06:21 Globulin 3.2 gm/dL 04/14/18 06:21 Albumin/Globulin Ratio 1.3 (1.0-1.8) 04/14/18 06:21 Triglycerides 83 mg/dL (<150) 04/13/18 09:55 Cholesterol 143 mg/dL (<200) 04/13/18 09:55 LDL Cholesterol Direct 95 mg/dL (75-193) 04/13/18 09:55 HDL Cholesterol 40 mg/dL (23-92) 04/13/18 09:55 - Physical Exam Vitals and I&O: Vital Signs Temp 98.0 F 04/29/18 05:52 Pulse 77 04/29/18 12:12 Resp 18 04/29/18 12:12 BP 98/71 04/29/18 09:55 Pulse Ox 95 04/29/18 12:12 Intake & Output 04/28/18 04/29/18 04/29/18 18:59 06:59 18:59 Intake Total 120 Balance 120 Intake: Oral 120 Other: # Voids 3 Stool Characteristics Soft Active Medications: Current Medications Acetaminophen (Tylenol) 650 mg PO Q4HR PRN PRN Reason: Mild Pain / Temp above 100 Stop: 06/11/18 16:50 Al Hydrox/Mg Hydrox/Simethicone (Maalox) 30 ml PO Q4HR PRN PRN Reason: GI DISTRESS Stop: 06/11/18 16:50 Albuterol/Ipratropium (Duoneb Neb) 3 ml HHN Q2HRT PRN PRN Reason: Wheezing Stop: 06/27/18 11:27 Last Admin: 04/29/18 04:46 Dose: 3 ml Albuterol/Ipratropium (Duoneb Neb) 3 ml HHN [id number] [facility] Stop: 06/27/18 12:59 Last Admin: 04/29/18 12:10 Dose: 3 ml Aspirin (Aspirin Chewable) 81 mg PO DAILY [facility] Stop: 06/12/18 08:59 Last Admin: 04/29/18 09:52 Dose: 81 mg Bisacodyl (Dulcolax 10 Mg Supp) 10 mg RC DAILY PRN PRN Reason: Constipation Stop: 06/11/18 16:35 Digoxin (Lanoxin) 0.125 mg PO DAILY [facility] Stop: 06/12/18 08:59 Last Admin: 04/29/18 09:53 Dose: 0.125 mg Divalproex Sodium (Depakote Dr) 125 mg PO Q12HR [facility]; Protocol Stop: 06/14/18 20:59 Last Admin: 04/29/18 09:52 Dose: 125 mg Docusate Sodium (Colace) 100 mg PO BID [facility] Stop: 06/11/18 16:59 Last Admin: 04/29/18 09:52 Dose: 100 mg Famotidine (Pepcid) 20 mg PO DAILY [facility] Stop: 06/12/18 08:59 Last Admin: 04/29/18 09:53 Dose: 20 mg Gabapentin (Neurontin) 300 mg PO Q8HR [facility] Stop: 06/11/18 20:59 Last Admin: 04/29/18 05:40 Dose: 300 mg Levofloxacin (Levaquin) 500 mg PO DAILY [facility] Stop: 06/27/18 12:44 Last Admin: 04/29/18 09:53 Dose: 500 mg Lorazepam (Ativan) 0.5 mg PO Q8HR PRN; Protocol PRN Reason: Anxiety Stop: 06/11/18 16:26 Magnesium Hydroxide (Milk Of Magnesia) 30 ml PO HS PRN PRN Reason: Constipation Magnesium Oxide (Mag-Oxide) 400 mg PO BID [facility] Stop: 06/11/18 16:59 Last Admin: 04/29/18 09:52 Dose: 400 mg Metoprolol Tartrate (Lopressor) 25 mg PO Q12HR [facility] Stop: 06/11/18 20:59 Last Admin: 04/29/18 09:55 Dose: Not Given Multivitamins/Vitamin C (Theragran) 1 tab PO DAILY [facility] Stop: 06/12/18 08:59 Last Admin: 04/29/18 09:52 Dose: 1 tab Paroxetine HCl (Paxil) 10 mg PO DAILY [facility]; Protocol Stop: 06/27/18 08:59 Polyethylene Glycol (Miralax) 17 gm PO DAILY [facility] Stop: 06/12/18 08:59 Last Admin: 04/29/18 09:51 Dose: 17 gm Pramipexole Dihydrochloride (Mirapex) 0.25 mg PO HS [facility]; Protocol Stop: 06/11/18 20:59 Last Admin: 04/28/18 21:41 Dose: 0.25 mg Quetiapine Fumarate (Seroquel) 25 mg PO HS [facility]; Protocol Stop: 06/27/18 20:59 Last Admin: 04/28/18 21:41 Dose: 25 mg Triamcinolone Acetonide (Kenalog 0.1%) 1 appl TP Q12HR PRN PRN Reason: Itching Stop: 06/11/18 20:59 Zolpidem Tartrate (Ambien) 5 mg PO HS PRN PRN Reason: Insomnia Stop: 06/11/18 16:50 Last Admin: 04/25/18 20:41 Dose: 5 mg General: Alert, Other (Confused) HEENT: Atraumatic Neck: Supple Cardiovascular: Regular rate Lungs: Other (Rude respiration) Abdomen: Bowel sounds, Soft Extremities: Other (No edema) Neurological: Other (Unstable gait) Skin: Other (Warm and dry) Psych/Mental Status: Other (Confused, not oriented) Assessment/Plan - Assessment Assessment: Per nurse report since last aguiar patient has having some O2 desaturation, Now is improving,. Dx: Increased in agitation, Psychosis, A-fib, HTN, CAD, CHF, COPD. - Plan Plan: Patient follow by Psychiatry, On nasal O2 and albuterol/ Ipratropium breathing treatment. CXR and EKG are ordered. will continue to monitor. Nutritional Asmnt/Malnutr-PDOC - Dietary Evaluation Malnutrition Findings (Please click <Entered> for more info): Nutritional Asmnt/Malnutrition Start: 04/16/18 14: 22 Text: Status: Complete Freq: Protocol: Document 04/16/18 14:22 LCHENG (Rec: 04/16/18 14:31 HENG [email or web address]) Nutritional Asmnt/Malnutrition Patient General Information Nutritional Screening Moderate Risk Diagnosis psychosis Pertinent Medical Hx/Surgical Hx a fib, CAD, CHF, HTN, dementia , schizophrenia, weakness Subjective Information Pt seen eating in dining room. Per EMR, PO intake 50-75% over the past two days, meeting 100% of nutritional needs. Current Diet Order/ Nutrition Support [facility] soft ground, honey thick liquid Pertinent Medications colace, pepcid, mag-oxide, theragran, miralax, seroquel Pertinent Labs 04/14 nutrition related labs WNL Nutritional Hx/Data Height 1.6 m Height (Calculated Centimeters) 160.0 Current Weight (lbs) 43.091 kg Weight (Calculated Kilograms) 43.1 Weight (Calculated Grams) 12579.3 [place] Body Weight 115 Body Mass Index (BMI) 16.8 Weight Status Underweight GI Symptoms GI Symptoms None Last BM 04/15 Difficult in: None Skin Integrity/Comment: skin intact, bruise Current %PO Fair (50-74%) Estimated Nutritional Goals BEE in Kcals: Using Current wt Calories/Kcals/Kg 30-35 Kcals Calculated 5729-3324 Protein: Using Current wt Protein g/k.2-1.4 Protein Calculated 52-60 Fluid: ml 1290-1505ml (1ml/kcal) Nutritional Problem No current Nutrition Prob Problem N/A Intervention/Recommendation Comments 1. Continue with [facility] soft ground diet as ordered. 2. Monitor PO intake, wt, labs and skin integrity 3. F/U as low risk in 7 days, 04/23 Expected Outcomes/Goals Expected Outcomes/Goals 1. PO intake to meet at least 75% of nutritional needs. 2. Wt stability, skin to remain intact, labs to approach WNL.
--- NOTE | 2018-04-30 01:18 | Progress Notes ---
DATE: 04/29/2018 PSYCHIATRIC PROGRESS NOTE SUBJECTIVE: Staff was spoken to. The patient is interviewed. Mood is noted to be less irritable. Affect is appropriate. The patient, however, is noted to be very tired and no aggressive behavior is noted today. The patient has been able to participate in the groups. The patient has been not as sedated as the other day. The patient is currently on 25 mg of the Seroquel at night time along with the 10 mg of the Paxil in the morning. ASSESSMENT AND PLAN: The patient's mood swings are coming under control and the patient is awaiting placement. The patient's breathing status seems to be improving today. JOB# [id number]
[2018-04-30] MEDS: Albuterol/Ipratropium Neb 3 ML AERS HHN SCH ×3 (06:49→20:05)
--- NOTE | 2018-04-30 08:51 | Diagnostic Imaging Report ---
CT scan of the chest without intravenous contrast HISTORY: Shortness of breath Total DLP equals 236 CTDI equals 5.7 Axial sections were obtained from a level above the clavicles down to level below the diaphragm. The overall heart size appears normal. Artifact associated with the cardiac electrode lead wires noted. Atherosclerotic calcification seen in the aortic arch. Mild coronary artery calcification is noted. Several normal-sized lymph nodes are seen within the mediastinum. Evaluation of the hilar structures is limited due to the absence of intravenous contrast. No obvious abnormal masses. Abnormal parenchymal density/infiltrate noted within the right lower lobe along with several subcentimeter nodular densities. Somewhat more focal density noted along the posterior medial aspect of the right lower hemithorax. Etiology uncertain. Inflammatory or a neoplastic process cannot be excluded. No pleural fluid is seen. No focal processes seen within the left lung. IMPRESSION: 1. Abnormal pulmonary parenchymal changes within the right lower lobe with suggestion of nodular ill-defined densities. Inflammatory or neoplastic etiology cannot be excluded. 2. Atherosclerotic vascular changes
[2018-04-30] MEDS: Multivitamin Tab PO SCH (09:30)
[2018-04-30] MEDS: POLYETHYLENE GLYCOL 3350 17 GM PACK PO SCH (09:30)
[2018-04-30] MEDS: Aspirin 81mg Chewable Tab PO SCH (09:47)
[2018-04-30] MEDS ORDERED: Probiotic Screen MC PRN (12:53)
--- NOTE | 2018-04-30 12:53 | General Progress Note ---
Subjective - Review of Systems Service Date: 04/30/18 Subjective: Patient is confused. Objective - Results Result Diagrams: 04/14/18 06:21 04/14/18 06:21 Recent Labs: Laboratory Last Values WBC 5.7 Th/cmm (4.8-10.8) 04/14/18 06:21 RBC 4.47 Mil/cmm (3.80-5.20) 04/14/18 06:21 Hgb 14.2 gm/dL (12-16) 04/14/18 06:21 Hct 42.4 % (41.0-60) 04/14/18 06:21 MCV 94.7 fl (81-100) 04/14/18 06:21 MCH 31.7 pg (27.0-31.0) H 04/14/18 06:21 MCHC Differential 33.5 pg (28.0-36.0) 04/14/18 06:21 RDW 13.5 % (11.5-20.0) 04/14/18 06:21 Plt Count 313 Th/cmm (150-400) 04/14/18 06:21 MPV 7.8 fl 04/14/18 06:21 Neutrophils % 67.5 % (40.0-80.0) 04/14/18 06:21 Lymphocytes % 22.5 % (20.0-50.0) 04/14/18 06:21 Monocytes % 7.6 % (2.0-10.0) 04/14/18 06:21 Eosinophils % 2.2 % (0.0-5.0) 04/14/18 06:21 Basophils % 0.2 % (0.0-2.0) 04/14/18 06:21 Sodium 138 mEq/L (136-145) 04/14/18 06:21 Potassium 4.4 mEq/L (3.5-5.1) 04/14/18 06:21 Chloride 104 mEq/L (98-107) 04/14/18 06:21 Carbon Dioxide 25.8 mEq/L (21.0-31.0) 04/14/18 06:21 Anion Gap 12.6 (7.0-16.0) 04/14/18 06:21 BUN 20 mg/dL (7-25) 04/14/18 06:21 Creatinine 0.9 mg/dL (0.6-1.2) 04/14/18 06:21 Est GFR ( Amer) > 60.0 ml/min (>90) 04/14/18 06:21 Est GFR (Non-Af Amer) > 60.0 ml/min 04/14/18 06:21 BUN/Creatinine Ratio 22.2 04/14/18 06:21 Glucose 95 mg/dL (70-105) 04/14/18 06:21 POC Glucose 66 MG/DL (70 - 105) L 04/12/18 17:37 Hemoglobin A1c % 5.3 % (4.0-6.0) 04/12/18 17:26 Calcium 9.8 mg/dL (8.6-10.3) 04/14/18 06:21 Total Bilirubin 0.9 mg/dL (0.3-1.0) 04/14/18 06:21 AST 32 U/L (13-39) 04/14/18 06:21 ALT 18 U/L (7-52) 04/14/18 06:21 Alkaline Phosphatase 104 U/L (34-104) 04/14/18 06:21 Total Protein 7.2 gm/dL (6.0-8.3) 04/14/18 06:21 Albumin 4.0 gm/dL (3.7-5.3) 04/14/18 06:21 Globulin 3.2 gm/dL 04/14/18 06:21 Albumin/Globulin Ratio 1.3 (1.0-1.8) 04/14/18 06:21 Triglycerides 83 mg/dL (<150) 04/13/18 09:55 Cholesterol 143 mg/dL (<200) 04/13/18 09:55 LDL Cholesterol Direct 95 mg/dL (75-193) 04/13/18 09:55 HDL Cholesterol 40 mg/dL (23-92) 04/13/18 09:55 - Physical Exam Vitals and I&O: Vital Signs Temp 97 F 04/30/18 05:54 Pulse 110 04/30/18 09:29 Resp 20 04/30/18 08:00 BP 100/55 04/30/18 09:29 Pulse Ox 95 04/30/18 06:40 Intake & Output 09/09/18 09/10/18 09/10/18 18:59 06:59 18:59 Intake Total 800 120 Balance 800 120 Intake: Oral 800 120 Other: # Voids 4 3 # Bowel Movements 1 0 Stool Characteristics Soft Active Medications: Current Medications Acetaminophen (Tylenol) 650 mg PO Q4HR PRN PRN Reason: Mild Pain / Temp above 100 Stop: 06/11/18 16:50 Al Hydrox/Mg Hydrox/Simethicone (Maalox) 30 ml PO Q4HR PRN PRN Reason: GI DISTRESS Stop: 06/11/18 16:50 Albuterol/Ipratropium (Duoneb Neb) 3 ml HHN Q2HRT PRN PRN Reason: Wheezing Stop: 06/27/18 11:27 Last Admin: 04/29/18 04:46 Dose: 3 ml Albuterol/Ipratropium (Duoneb Neb) 3 ml HHN [id number] [facility] Stop: 06/27/18 12:59 Last Admin: 04/30/18 12:07 Dose: 3 ml Aspirin (Aspirin Chewable) 81 mg PO DAILY [facility] Stop: 06/12/18 08:59 Last Admin: 04/30/18 09:47 Dose: 81 mg Bisacodyl (Dulcolax 10 Mg Supp) 10 mg RC DAILY PRN PRN Reason: Constipation Stop: 06/11/18 16:35 Digoxin (Lanoxin) 0.125 mg PO DAILY [facility] Stop: 06/12/18 08:59 Last Admin: 04/30/18 09:28 Dose: 0.125 mg Divalproex Sodium (Depakote Dr) 125 mg PO Q12HR [facility]; Protocol Stop: 06/14/18 20:59 Last Admin: 04/30/18 09:27 Dose: 125 mg Docusate Sodium (Colace) 100 mg PO BID [facility] Stop: 06/11/18 16:59 Last Admin: 04/30/18 09:28 Dose: 100 mg Famotidine (Pepcid) 20 mg PO DAILY [facility] Stop: 06/12/18 08:59 Last Admin: 04/30/18 09:29 Dose: 20 mg Gabapentin (Neurontin) 300 mg PO Q8HR [facility] Stop: 06/11/18 20:59 Last Admin: 04/30/18 05:41 Dose: 300 mg Levofloxacin (Levaquin) 500 mg PO DAILY [facility] Stop: 06/27/18 12:44 Last Admin: 04/30/18 09:29 Dose: 500 mg Lorazepam (Ativan) 0.5 mg PO Q8HR PRN; Protocol PRN Reason: Anxiety Stop: 06/11/18 16:26 Magnesium Hydroxide (Milk Of Magnesia) 30 ml PO HS PRN PRN Reason: Constipation Magnesium Oxide (Mag-Oxide) 400 mg PO BID [facility] Stop: 06/11/18 16:59 Last Admin: 04/30/18 09:28 Dose: 400 mg Metoprolol Tartrate (Lopressor) 25 mg PO Q12HR [facility] Stop: 06/11/18 20:59 Last Admin: 04/30/18 09:29 Dose: 25 mg Multivitamins/Vitamin C (Theragran) 1 tab PO DAILY [facility] Stop: 06/12/18 08:59 Last Admin: 04/30/18 09:30 Dose: 1 tab Paroxetine HCl (Paxil) 10 mg PO DAILY [facility]; Protocol Stop: 06/27/18 08:59 Last Admin: 04/30/18 09:32 Dose: 10 mg Polyethylene Glycol (Miralax) 17 gm PO DAILY [facility] Stop: 06/12/18 08:59 Last Admin: 04/30/18 09:30 Dose: Not Given Pramipexole Dihydrochloride (Mirapex) 0.25 mg PO HS [facility]; Protocol Stop: 06/11/18 20:59 Last Admin: 04/29/18 21:31 Dose: 0.25 mg Quetiapine Fumarate (Seroquel) 25 mg PO HS [facility]; Protocol Stop: 06/27/18 20:59 Last Admin: 04/29/18 20:41 Dose: 25 mg Triamcinolone Acetonide (Kenalog 0.1%) 1 appl TP Q12HR PRN PRN Reason: Itching Stop: 06/11/18 20:59 Zolpidem Tartrate (Ambien) 5 mg PO HS PRN PRN Reason: Insomnia Stop: 06/11/18 16:50 Last Admin: 04/25/18 20:41 Dose: 5 mg General: Alert, Other (Confused) HEENT: Atraumatic Neck: Supple Cardiovascular: Regular rate Lungs: Other (Rude respiration) Abdomen: Bowel sounds, Soft Extremities: Other (No edema) Neurological: Other (Unstable gait) Skin: Other (Warm and dry) Psych/Mental Status: Other (Confused, not oriented) Assessment/Plan - Assessment Assessment: Patient is calm, confused, in no acute distress. Dx: Increased in agitation, Psychosis, A-fib, HTN, CAD, CHF, COPD. - Plan Plan: Patient follow by Psychiatry, On nasal O2 and albuterol/ Ipratropium breathing treatment. will continue to monitor. Nutritional Asmnt/Malnutr-PDOC - Dietary Evaluation Malnutrition Findings (Please click <Entered> for more info): Nutritional Asmnt/Malnutrition Start: 04/16/18 14: 22 Text: Status: Complete Freq: Protocol: Document 04/16/18 14:22 HENG (Rec: 04/16/18 14:31 [facility] [email or web address]) Nutritional Asmnt/Malnutrition Patient General Information Nutritional Screening Moderate Risk Diagnosis psychosis Pertinent Medical Hx/Surgical Hx a fib, CAD, CHF, HTN, dementia , schizophrenia, weakness Subjective Information Pt seen eating in dining room. Per EMR, PO intake 50-75% over the past two days, meeting 100% of nutritional needs. Current Diet Order/ Nutrition Support [facility] soft ground, honey thick liquid Pertinent Medications colace, pepcid, mag-oxide, theragran, miralax, seroquel Pertinent Labs 04/14 nutrition related labs WNL Nutritional Hx/Data Height 1.6 m Height (Calculated Centimeters) 160.0 Current Weight (lbs) 43.091 kg Weight (Calculated Kilograms) 43.1 Weight (Calculated Grams) 04271.3 [place] Body Weight 115 Body Mass Index (BMI) 16.8 Weight Status Underweight GI Symptoms GI Symptoms None Last BM 04/15 Difficult in: None Skin Integrity/Comment: skin intact, bruise Current %PO Fair (50-74%) Estimated Nutritional Goals BEE in Kcals: Using Current wt Calories/Kcals/Kg 30-35 Kcals Calculated 1858-3801 Protein: Using Current wt Protein g/k.2-1.4 Protein Calculated 52-60 Fluid: ml 1290-1505ml (1ml/kcal) Nutritional Problem No current Nutrition Prob Problem N/A Intervention/Recommendation Comments 1. Continue with [facility] soft ground diet as ordered. 2. Monitor PO intake, wt, labs and skin integrity 3. F/U as low risk in 7 days, 04/23 Expected Outcomes/Goals Expected Outcomes/Goals 1. PO intake to meet at least 75% of nutritional needs. 2. Wt stability, skin to remain intact, labs to approach WNL.
[2018-04-30] MEDS: Lactobacillus Rhamnosus GG 15 Billion CFU CAP.SPRINK PO SCH (14:49)
--- NOTE | 2018-05-01 05:14 | Progress Notes ---
DATE: 04/30/2018 SUBJECTIVE: Staff was spoken to. The patient is interviewed. Mood is noted to be irritable. Affect is constricted. The patient has paranoia, but denies any command hallucinations. No aggressive behavior is noted today. No side effects to the medications are noted. The patient has been having difficult time to participate in the groups. The patient is isolative and withdrawn. The patient's breathing has been improving. No side effects to the medications are noted. ASSESSMENT: The patient's aggression is coming under control. PLAN: To discontinue the Paxil and continue the patient with the Depakote and Seroquel and follow the patient up. JOB# [id number]
[2018-05-01] MEDS: Albuterol/Ipratropium Neb 3 ML AERS HHN SCH ×3 (07:15→18:54)
--- NOTE | 2018-05-01 08:41 | General Progress Note ---
Subjective - Review of Systems Service Date: 05/01/18 Subjective: Patient is confused. Objective - Results Result Diagrams: 04/14/18 06:21 04/14/18 06:21 Recent Labs: Laboratory Last Values WBC 5.7 Th/cmm (4.8-10.8) 04/14/18 06:21 RBC 4.47 Mil/cmm (3.80-5.20) 04/14/18 06:21 Hgb 14.2 gm/dL (12-16) 04/14/18 06:21 Hct 42.4 % (41.0-60) 04/14/18 06:21 MCV 94.7 fl (81-100) 04/14/18 06:21 MCH 31.7 pg (27.0-31.0) H 04/14/18 06:21 MCHC Differential 33.5 pg (28.0-36.0) 04/14/18 06:21 RDW 13.5 % (11.5-20.0) 04/14/18 06:21 Plt Count 313 Th/cmm (150-400) 04/14/18 06:21 MPV 7.8 fl 04/14/18 06:21 Neutrophils % 67.5 % (40.0-80.0) 04/14/18 06:21 Lymphocytes % 22.5 % (20.0-50.0) 04/14/18 06:21 Monocytes % 7.6 % (2.0-10.0) 04/14/18 06:21 Eosinophils % 2.2 % (0.0-5.0) 04/14/18 06:21 Basophils % 0.2 % (0.0-2.0) 04/14/18 06:21 Sodium 138 mEq/L (136-145) 04/14/18 06:21 Potassium 4.4 mEq/L (3.5-5.1) 04/14/18 06:21 Chloride 104 mEq/L (98-107) 04/14/18 06:21 Carbon Dioxide 25.8 mEq/L (21.0-31.0) 04/14/18 06:21 Anion Gap 12.6 (7.0-16.0) 04/14/18 06:21 BUN 20 mg/dL (7-25) 04/14/18 06:21 Creatinine 0.9 mg/dL (0.6-1.2) 04/14/18 06:21 Est GFR ( Amer) > 60.0 ml/min (>90) 04/14/18 06:21 Est GFR (Non-Af Amer) > 60.0 ml/min 04/14/18 06:21 BUN/Creatinine Ratio 22.2 04/14/18 06:21 Glucose 95 mg/dL (70-105) 04/14/18 06:21 POC Glucose 66 MG/DL (70 - 105) L 04/12/18 17:37 Hemoglobin A1c % 5.3 % (4.0-6.0) 04/12/18 17:26 Calcium 9.8 mg/dL (8.6-10.3) 04/14/18 06:21 Total Bilirubin 0.9 mg/dL (0.3-1.0) 04/14/18 06:21 AST 32 U/L (13-39) 04/14/18 06:21 ALT 18 U/L (7-52) 04/14/18 06:21 Alkaline Phosphatase 104 U/L (34-104) 04/14/18 06:21 Total Protein 7.2 gm/dL (6.0-8.3) 04/14/18 06:21 Albumin 4.0 gm/dL (3.7-5.3) 04/14/18 06:21 Globulin 3.2 gm/dL 04/14/18 06:21 Albumin/Globulin Ratio 1.3 (1.0-1.8) 04/14/18 06:21 Triglycerides 83 mg/dL (<150) 04/13/18 09:55 Cholesterol 143 mg/dL (<200) 04/13/18 09:55 LDL Cholesterol Direct 95 mg/dL (75-193) 04/13/18 09:55 HDL Cholesterol 40 mg/dL (23-92) 04/13/18 09:55 - Physical Exam Vitals and I&O: Vital Signs Temp 0 F 05/01/18 06:22 Pulse 90 05/01/18 07:15 Resp 16 05/01/18 07:15 BP 98/56 04/30/18 21:47 Pulse Ox 96 05/01/18 07:15 Intake & Output 09/10/18 09/11/18 09/11/18 18:59 06:59 18:59 Intake Total 700 240 Balance 700 240 Intake: Oral 700 240 Other: # Voids 3 3 # Bowel Movements 1 0 Active Medications: Current Medications Acetaminophen (Tylenol) 650 mg PO Q4HR PRN PRN Reason: Mild Pain / Temp above 100 Stop: 06/11/18 16:50 Al Hydrox/Mg Hydrox/Simethicone (Maalox) 30 ml PO Q4HR PRN PRN Reason: GI DISTRESS Stop: 06/11/18 16:50 Albuterol/Ipratropium (Duoneb Neb) 3 ml HHN Q2HRT PRN PRN Reason: Wheezing Stop: 06/27/18 11:27 Last Admin: 04/29/18 04:46 Dose: 3 ml Albuterol/Ipratropium (Duoneb Neb) 3 ml HHN [id number] [facility] Stop: 06/27/18 12:59 Last Admin: 05/01/18 07:15 Dose: 3 ml Aspirin (Aspirin Chewable) 81 mg PO DAILY [facility] Stop: 06/12/18 08:59 Last Admin: 04/30/18 09:47 Dose: 81 mg Bisacodyl (Dulcolax 10 Mg Supp) 10 mg RC DAILY PRN PRN Reason: Constipation Stop: 06/11/18 16:35 Digoxin (Lanoxin) 0.125 mg PO DAILY [facility] Stop: 06/12/18 08:59 Last Admin: 04/30/18 09:28 Dose: 0.125 mg Divalproex Sodium (Depakote Dr) 125 mg PO Q12HR [facility]; Protocol Stop: 06/14/18 20:59 Last Admin: 04/30/18 21:43 Dose: 125 mg Docusate Sodium (Colace) 100 mg PO BID [facility] Stop: 06/11/18 16:59 Last Admin: 04/30/18 17:49 Dose: 100 mg Famotidine (Pepcid) 20 mg PO DAILY [facility] Stop: 06/12/18 08:59 Last Admin: 04/30/18 09:29 Dose: 20 mg Gabapentin (Neurontin) 300 mg PO Q8HR [facility] Stop: 06/11/18 20:59 Last Admin: 05/01/18 06:00 Dose: Not Given Lactobacillus Rhamnosus (Culturelle 15b) 1 each PO DAILY [facility] Stop: 06/29/18 13:59 Last Admin: 04/30/18 14:49 Dose: Not Given Levofloxacin (Levaquin) 500 mg PO DAILY [facility] Stop: 06/27/18 12:44 Last Admin: 04/30/18 09:29 Dose: 500 mg Lorazepam (Ativan) 0.5 mg PO Q8HR PRN; Protocol PRN Reason: Anxiety Stop: 06/11/18 16:26 Magnesium Hydroxide (Milk Of Magnesia) 30 ml PO HS PRN PRN Reason: Constipation Magnesium Oxide (Mag-Oxide) 400 mg PO BID [facility] Stop: 06/11/18 16:59 Last Admin: 04/30/18 17:49 Dose: 400 mg Metoprolol Tartrate (Lopressor) 25 mg PO Q12HR [facility] Stop: 06/11/18 20:59 Last Admin: 04/30/18 21:47 Dose: Not Given Miscellaneous (Probiotic Screen) 1 ea MC PRN PRN PRN Reason: PROTOCOL Stop: 06/29/18 12:52 Multivitamins/Vitamin C (Theragran) 1 tab PO DAILY [facility] Stop: 06/12/18 08:59 Last Admin: 04/30/18 09:30 Dose: 1 tab Polyethylene Glycol (Miralax) 17 gm PO DAILY [facility] Stop: 06/12/18 08:59 Last Admin: 04/30/18 09:30 Dose: Not Given Pramipexole Dihydrochloride (Mirapex) 0.25 mg PO HS [facility]; Protocol Stop: 06/11/18 20:59 Last Admin: 04/30/18 21:42 Dose: 0.25 mg Quetiapine Fumarate (Seroquel) 25 mg PO HS [facility]; Protocol Stop: 06/27/18 20:59 Last Admin: 04/30/18 21:42 Dose: 25 mg Triamcinolone Acetonide (Kenalog 0.1%) 1 appl TP Q12HR PRN PRN Reason: Itching Stop: 06/11/18 20:59 Zolpidem Tartrate (Ambien) 5 mg PO HS PRN PRN Reason: Insomnia Stop: 06/11/18 16:50 Last Admin: 04/30/18 21:43 Dose: 5 mg General: Alert, Other (Confused) HEENT: Atraumatic Neck: Supple Cardiovascular: Regular rate Lungs: Other (Rude respiration) Abdomen: Bowel sounds, Soft Extremities: Other (No edema) Neurological: Other (Unstable gait) Skin: Other (Warm and dry) Psych/Mental Status: Other (Confused, not oriented) Assessment/Plan - Assessment Assessment: Patient is calm, confused, in no acute distress. Dx: Increased in agitation, Psychosis, A-fib, HTN, CAD, CHF, COPD. - Plan Plan: Patient follow by Psychiatry, On nasal O2 and albuterol/ Ipratropium breathing treatment. will continue to monitor. Nutritional Asmnt/Malnutr-PDOC - Dietary Evaluation Malnutrition Findings (Please click <Entered> for more info): Nutritional Asmnt/Malnutrition Start: 04/16/18 14: 22 Text: Status: Complete Freq: Protocol: Document 04/16/18 14:22 [email or web address] (Rec: 04/16/18 14:31 [email or web address]) Nutritional Asmnt/Malnutrition Patient General Information Nutritional Screening Moderate Risk Diagnosis psychosis Pertinent Medical Hx/Surgical Hx a fib, CAD, CHF, HTN, dementia , schizophrenia, weakness Subjective Information Pt seen eating in dining room. Per EMR, PO intake 50-75% over the past two days, meeting 100% of nutritional needs. Current Diet Order/ Nutrition Support [facility] soft ground, honey thick liquid Pertinent Medications colace, pepcid, mag-oxide, theragran, miralax, seroquel Pertinent Labs 04/14 nutrition related labs WNL Nutritional Hx/Data Height 1.6 m Height (Calculated Centimeters) 160.0 Current Weight (lbs) 43.091 kg Weight (Calculated Kilograms) 43.1 Weight (Calculated Grams) 76614.3 [place] Body Weight 115 Body Mass Index (BMI) 16.8 Weight Status Underweight GI Symptoms GI Symptoms None Last BM 04/15 Difficult in: None Skin Integrity/Comment: skin intact, bruise Current %PO Fair (50-74%) Estimated Nutritional Goals BEE in Kcals: Using Current wt Calories/Kcals/Kg 30-35 Kcals Calculated 4790-2081 Protein: Using Current wt Protein g/k.2-1.4 Protein Calculated 52-60 Fluid: ml 1290-1505ml (1ml/kcal) Nutritional Problem No current Nutrition Prob Problem N/A Intervention/Recommendation Comments 1. Continue with [facility] soft ground diet as ordered. 2. Monitor PO intake, wt, labs and skin integrity 3. F/U as low risk in 7 days, 04/23 Expected Outcomes/Goals Expected Outcomes/Goals 1. PO intake to meet at least 75% of nutritional needs. 2. Wt stability, skin to remain intact, labs to approach WNL.
[2018-05-01] MEDS: Multivitamin Tab PO SCH (09:08)
[2018-05-01] MEDS: Lactobacillus Rhamnosus GG 15 Billion CFU CAP.SPRINK PO SCH (09:10)
[2018-05-01] MEDS: POLYETHYLENE GLYCOL 3350 17 GM PACK PO SCH (09:11)
[2018-05-01] MEDS: Aspirin 81mg Chewable Tab PO SCH (09:11)
--- NOTE | 2018-05-01 23:55 | Progress Notes ---
DATE: 05/01/2018 SUBJECTIVE: Staff was spoken to. The patient is interviewed. Mood is noted to be irritable. Affect is appropriate. The patient's insight and judgment at this time are noted to be improving. Impulse control is noted to be fair. No side effects to the medications are noted. The patient is being interviewed by the [facility] and the patient has been accepted. If the family is okay with this one, the patient is going to be discharged tomorrow for followup on outpatient basis. JOB# [id number]
[2018-05-02] MEDS: Albuterol/Ipratropium Neb 3 ML AERS HHN SCH ×2 (07:00→14:06)
--- NOTE | 2018-05-02 08:41 | General Progress Note ---
Subjective - Review of Systems Service Date: 05/02/18 Subjective: Patient is confused. Objective - Results Result Diagrams: 04/14/18 06:21 04/14/18 06:21 Recent Labs: Laboratory Last Values WBC 5.7 Th/cmm (4.8-10.8) 04/14/18 06:21 RBC 4.47 Mil/cmm (3.80-5.20) 04/14/18 06:21 Hgb 14.2 gm/dL (12-16) 04/14/18 06:21 Hct 42.4 % (41.0-60) 04/14/18 06:21 MCV 94.7 fl (81-100) 04/14/18 06:21 MCH 31.7 pg (27.0-31.0) H 04/14/18 06:21 MCHC Differential 33.5 pg (28.0-36.0) 04/14/18 06:21 RDW 13.5 % (11.5-20.0) 04/14/18 06:21 Plt Count 313 Th/cmm (150-400) 04/14/18 06:21 MPV 7.8 fl 04/14/18 06:21 Neutrophils % 67.5 % (40.0-80.0) 04/14/18 06:21 Lymphocytes % 22.5 % (20.0-50.0) 04/14/18 06:21 Monocytes % 7.6 % (2.0-10.0) 04/14/18 06:21 Eosinophils % 2.2 % (0.0-5.0) 04/14/18 06:21 Basophils % 0.2 % (0.0-2.0) 04/14/18 06:21 Sodium 138 mEq/L (136-145) 04/14/18 06:21 Potassium 4.4 mEq/L (3.5-5.1) 04/14/18 06:21 Chloride 104 mEq/L (98-107) 04/14/18 06:21 Carbon Dioxide 25.8 mEq/L (21.0-31.0) 04/14/18 06:21 Anion Gap 12.6 (7.0-16.0) 04/14/18 06:21 BUN 20 mg/dL (7-25) 04/14/18 06:21 Creatinine 0.9 mg/dL (0.6-1.2) 04/14/18 06:21 Est GFR ( Amer) > 60.0 ml/min (>90) 04/14/18 06:21 Est GFR (Non-Af Amer) > 60.0 ml/min 04/14/18 06:21 BUN/Creatinine Ratio 22.2 04/14/18 06:21 Glucose 95 mg/dL (70-105) 04/14/18 06:21 POC Glucose 66 MG/DL (70 - 105) L 04/12/18 17:37 Hemoglobin A1c % 5.3 % (4.0-6.0) 04/12/18 17:26 Calcium 9.8 mg/dL (8.6-10.3) 04/14/18 06:21 Total Bilirubin 0.9 mg/dL (0.3-1.0) 04/14/18 06:21 AST 32 U/L (13-39) 04/14/18 06:21 ALT 18 U/L (7-52) 04/14/18 06:21 Alkaline Phosphatase 104 U/L (34-104) 04/14/18 06:21 Total Protein 7.2 gm/dL (6.0-8.3) 04/14/18 06:21 Albumin 4.0 gm/dL (3.7-5.3) 04/14/18 06:21 Globulin 3.2 gm/dL 04/14/18 06:21 Albumin/Globulin Ratio 1.3 (1.0-1.8) 04/14/18 06:21 Triglycerides 83 mg/dL (<150) 04/13/18 09:55 Cholesterol 143 mg/dL (<200) 04/13/18 09:55 LDL Cholesterol Direct 95 mg/dL (75-193) 04/13/18 09:55 HDL Cholesterol 40 mg/dL (23-92) 04/13/18 09:55 - Physical Exam Vitals and I&O: Vital Signs Temp 97.7 F 05/02/18 06:20 Pulse 94 05/02/18 07:01 Resp 16 05/02/18 07:01 BP 110/77 05/02/18 06:20 Pulse Ox 97 05/02/18 07:01 Intake & Output 05/01/18 05/02/18 05/02/18 18:59 06:59 18:59 Intake Total 950 240 Balance 950 240 Intake: Oral 950 240 Other: # Voids 4 3 # Bowel Movements 0 0 Active Medications: Current Medications Acetaminophen (Tylenol) 650 mg PO Q4HR PRN PRN Reason: Mild Pain / Temp above 100 Stop: 06/11/18 16:50 Last Admin: 05/01/18 13:46 Dose: 650 mg Al Hydrox/Mg Hydrox/Simethicone (Maalox) 30 ml PO Q4HR PRN PRN Reason: GI DISTRESS Stop: 06/11/18 16:50 Albuterol/Ipratropium (Duoneb Neb) 3 ml HHN Q2HRT PRN PRN Reason: Wheezing Stop: 06/27/18 11:27 Last Admin: 04/29/18 04:46 Dose: 3 ml Albuterol/Ipratropium (Duoneb Neb) 3 ml HHN [id number] [facility] Stop: 06/27/18 12:59 Last Admin: 05/02/18 07:00 Dose: 3 ml Aspirin (Aspirin Chewable) 81 mg PO DAILY [facility] Stop: 06/12/18 08:59 Last Admin: 05/01/18 09:11 Dose: 81 mg Bisacodyl (Dulcolax 10 Mg Supp) 10 mg RC DAILY PRN PRN Reason: Constipation Stop: 06/11/18 16:35 Digoxin (Lanoxin) 0.125 mg PO DAILY [facility] Stop: 06/12/18 08:59 Last Admin: 05/01/18 09:10 Dose: 0.125 mg Divalproex Sodium (Depakote Dr) 125 mg PO Q12HR [facility]; Protocol Stop: 06/14/18 20:59 Last Admin: 05/01/18 22:13 Dose: Not Given Docusate Sodium (Colace) 100 mg PO BID [facility] Stop: 06/11/18 16:59 Last Admin: 05/01/18 17:24 Dose: 100 mg Famotidine (Pepcid) 20 mg PO DAILY [facility] Stop: 06/12/18 08:59 Last Admin: 05/01/18 09:09 Dose: 20 mg Gabapentin (Neurontin) 300 mg PO Q8HR [facility] Stop: 06/11/18 20:59 Last Admin: 05/02/18 05:32 Dose: Not Given Lactobacillus Rhamnosus (Culturelle 15b) 1 each PO DAILY [facility] Stop: 06/29/18 13:59 Last Admin: 05/01/18 09:10 Dose: 1 each Levofloxacin (Levaquin) 500 mg PO DAILY [facility] Stop: 06/27/18 12:44 Last Admin: 05/01/18 09:08 Dose: 500 mg Lorazepam (Ativan) 0.5 mg PO Q8HR PRN; Protocol PRN Reason: Anxiety Stop: 06/11/18 16:26 Last Admin: 05/01/18 13:47 Dose: 0.5 mg Magnesium Hydroxide (Milk Of Magnesia) 30 ml PO HS PRN PRN Reason: Constipation Magnesium Oxide (Mag-Oxide) 400 mg PO BID [facility] Stop: 06/11/18 16:59 Last Admin: 05/01/18 17:24 Dose: 400 mg Metoprolol Tartrate (Lopressor) 25 mg PO Q12HR [facility] Stop: 06/11/18 20:59 Last Admin: 05/01/18 22:14 Dose: Not Given Miscellaneous (Probiotic Screen) 1 ea MC PRN PRN PRN Reason: PROTOCOL Stop: 06/29/18 12:52 Multivitamins/Vitamin C (Theragran) 1 tab PO DAILY [facility] Stop: 06/12/18 08:59 Last Admin: 05/01/18 09:08 Dose: 1 tab Polyethylene Glycol (Miralax) 17 gm PO DAILY [facility] Stop: 06/12/18 08:59 Last Admin: 05/01/18 09:11 Dose: Not Given Pramipexole Dihydrochloride (Mirapex) 0.25 mg PO HS [facility]; Protocol Stop: 06/11/18 20:59 Last Admin: 05/01/18 22:14 Dose: Not Given Quetiapine Fumarate (Seroquel) 25 mg PO HS [facility]; Protocol Stop: 06/27/18 20:59 Last Admin: 05/01/18 22:14 Dose: Not Given Triamcinolone Acetonide (Kenalog 0.1%) 1 appl TP Q12HR PRN PRN Reason: Itching Stop: 06/11/18 20:59 Zolpidem Tartrate (Ambien) 5 mg PO HS PRN PRN Reason: Insomnia Stop: 06/11/18 16:50 Last Admin: 04/30/18 21:43 Dose: 5 mg General: Alert, Other (Confused) HEENT: Atraumatic Neck: Supple Cardiovascular: Regular rate Lungs: Other (Rude respiration) Abdomen: Bowel sounds, Soft Extremities: Other (No edema) Neurological: Other (Unstable gait) Skin: Other (Warm and dry) Psych/Mental Status: Other (Confused, not oriented) Assessment/Plan - Assessment Assessment: Patient is calm, confused, in no acute distress. Dx: Increased in agitation, Psychosis, A-fib, HTN, CAD, CHF, COPD. - Plan Plan: Patient follow by Psychiatry, On nasal O2 and albuterol/ Ipratropium breathing treatment. will continue to monitor. Nutritional Asmnt/Malnutr-PDOC - Dietary Evaluation Malnutrition Findings (Please click <Entered> for more info): Nutritional Asmnt/Malnutrition Start: 04/16/18 14: 22 Text: Status: Complete Freq: Protocol: Document 04/16/18 14:22 LCHENG (Rec: 04/16/18 14:31 [email or web address]) Nutritional Asmnt/Malnutrition Patient General Information Nutritional Screening Moderate Risk Diagnosis psychosis Pertinent Medical Hx/Surgical Hx a fib, CAD, CHF, HTN, dementia , schizophrenia, weakness Subjective Information Pt seen eating in dining room. Per EMR, PO intake 50-75% over the past two days, meeting 100% of nutritional needs. Current Diet Order/ Nutrition Support [facility] soft ground, honey thick liquid Pertinent Medications colace, pepcid, mag-oxide, theragran, miralax, seroquel Pertinent Labs 04/14 nutrition related labs WNL Nutritional Hx/Data Height 1.6 m Height (Calculated Centimeters) 160.0 Current Weight (lbs) 43.091 kg Weight (Calculated Kilograms) 43.1 Weight (Calculated Grams) 07634.3 [place] Body Weight 115 Body Mass Index (BMI) 16.8 Weight Status Underweight GI Symptoms GI Symptoms None Last BM 04/15 Difficult in: None Skin Integrity/Comment: skin intact, bruise Current %PO Fair (50-74%) Estimated Nutritional Goals BEE in Kcals: Using Current wt Calories/Kcals/Kg 30-35 Kcals Calculated 2463-7057 Protein: Using Current wt Protein g/k.2-1.4 Protein Calculated 52-60 Fluid: ml 1290-1505ml (1ml/kcal) Nutritional Problem No current Nutrition Prob Problem N/A Intervention/Recommendation Comments 1. Continue with [facility] soft ground diet as ordered. 2. Monitor PO intake, wt, labs and skin integrity 3. F/U as low risk in 7 days, 04/23 Expected Outcomes/Goals Expected Outcomes/Goals 1. PO intake to meet at least 75% of nutritional needs. 2. Wt stability, skin to remain intact, labs to approach WNL.
[2018-05-02] MEDS: Lactobacillus Rhamnosus GG 15 Billion CFU CAP.SPRINK PO SCH ×2 (09:55→10:41)
[2018-05-02] MEDS: Aspirin 81mg Chewable Tab PO SCH ×2 (09:56→10:40)
[2018-05-02] MEDS: POLYETHYLENE GLYCOL 3350 17 GM PACK PO SCH (09:59)
[2018-05-02] MEDS: Multivitamin Tab PO SCH ×2 (09:59→10:41)
--- NOTE | 2018-05-03 07:04 | Progress Notes ---
DATE: 05/02/2018 PSYCHIATRIC PROGRESS NOTE SUBJECTIVE: Staff was spoken to. The patient is interviewed. Mood is noted to be irritable. Affect is constricted. Insight and judgment are noted to be improving. Impulse control is noted to be fair. Coping skills are noted to very fair. No side effects to the medications are noted. The patient has been able to verbalize the concerns rather than to act out. The patient is not presenting with any threats to harm self or others. Vital signs are noted to be stable and no major behavioral problems are noted from the psych medications. ASSESSMENT: The patient is stabilizing. PLAN: To discharge the patient today for followup on outpatient basis. JOB# [id number]
--- NOTE | 2018-05-07 00:33 | Discharge Summary ---
DATE OF DISCHARGE: 05/02/2018 PSYCHIATRIC DISCHARGE SUMMARY IDENTIFYING DATA: The patient is a 67-year-old woman, resident of a assisted facility. JUSTIFICATION OF HOSPITALIZATION: The patient is admitted on a voluntary basis from [facility] in view of her depression and agitated behavior. CHIEF COMPLAINT: "I do not know." DIAGNOSES AT THE TIME OF THE ADMISSION: AXIS IA: Major depressive disorder, recurrent with psychotic symptoms. AXIS IB. Dementia and behavioral change, secondary trait. AXIS II: None. AXIS III: As per Dr. Nixon. HISTORY OF PRESENT ILLNESS: Please refer to the 04/13/2018 dictation done by me. Physical examination was done by Dr. Nixon and the blood work that was done at the time of the hospitalization has been reviewed by Dr. Nixon and basically it is noted to be within normal limits. No major intervention was needed except the blood glucose was noted to be 66 at the time of the admission. HOSPITAL COURSE AND RESPONSE TO TREATMENT: The patient has been observed on inpatient unit, provided with supportive psychotherapy. The patient has been closely monitored. She is encouraged to participate in groups and verbalize the concerns. The patient has been placed on Seroquel. The patient's Seroquel has been gradually changed to 25 mg at bedtime and Paxil has been continued. The patient has been encouraged to participate in groups and verbalize the concerns. The patient's agitated behavior started to resolve. The placement became an issue and [facility] does not want the to take the patient back and the patient has to be finally discharged to [facility] and the patient was discharged. MENTAL STATUS EXAMINATION: At the time of discharge, the patient's mood is noted to be anxious. Affect is appropriate. She is not suicidal or homicidal. Insight and judgment are noted to be improving. Impulse control seems to be fair. Coping skills are also noted to be fair. No side effects to the medications are noted at the time of discharge. The patient has been able to verbalize the concerns rather than to act out. DIAGNOSES AT THE TIME OF THE DISCHARGE: AXIS IA: Major depressive disorder, recurrent with psychotic symptoms. AXIS IB. Dementia and behavioral changes, secondary trait. AXIS II: None. AXIS III: As per Dr. Nixon. AFTERCARE PLAN: The patient is discharged to [facility] to be followed up on an outpatient basis. JOB# [id number]
== END 2018-05-02 16:25 | DRG 885 ==
LOC: GERO2 15:32 → GERO 16:51
PROVIDERS: ADMIT Psychiatry & Neurology Psychiatry; ATTEND Psychiatry & Neurology Psychiatry
DX: F33.3 Major depressive disorder, recurrent, severe with psychotic symptoms (principal); I11.0 Hypertensive heart disease with heart failure; F03.91 Unspecified dementia, unspecified severity, with behavioral disturbance; I48.91 Unspecified atrial fibrillation; I50.9 Heart failure, unspecified; I25.10 Atherosclerotic heart disease of native coronary artery without angina pectoris; F29 Unspecified psychosis not due to a substance or known physiological condition
CPT/HCPCS: 36415-UA; 71045-TC; 71250-TC; 80053-TC; 80061-TC; 82948-90; 83036-90; 85025-TC; 90779; 93005; 94640; 94760; G0410; J2060; J7613; Z7610